=== PATIENT | female | born 1930 | race African-American/Black ===

== ENCOUNTER 2016-12-16 18:39 | Emergency (ER) | payer OTHER ==
[2016-12-16 18:54] VITALS: BP 192/88; PULSE 99; TEMP 98.3; BMI 25.6
--- NOTE | 2016-12-16 21:22 | PDOC ---
History of Present Illness - General History Source: Patient Exam Limitations: No Limitations - History of Present Illness Initial Comments: 12/16/16 21:49 The patient is a 86 year old female with significant past medical history of hypertension who presents to the ED with 1 day of exertional midsternal chest pain. Patient reports her chest pain radiates to her back and is 10/10, in severity. At time of evaluation, patient states her chest pain is now resolved. States that she normally has chest discomfort that is worsen with walking and alleviated upon rest. However, she became concern today after her pain started to radiated to her back, which is new to her. Denies lightheadedness, diaphoresis, SOB, jaw pain, shoulder pain, arm pain, leg swelling, nausea, or vomiting. The patient denies fever, chills, cough, abdominal pain, and diarrhea. Allergies: NKDA Social History: No alcohol, tobacco, or drug use reported. Past Surgical History: None reported PCP: Dr. Romy Newman <Janice Plummer - Last Filed: 12/16/16 22:15> - General History Source: Patient <WillieDrew fernandez - Last Filed: 12/16/16 23:47> - General Chief Complaint: Chest Pain Stated Complaint: CHEST PAIN Time Seen by Provider: 12/16/16 21:21 Past History <Janice Plummer - Last Filed: 12/16/16 22:15> - Past Medical History HTN: Yes Suicide Attempt (Hx): No - Psycho/Social/Smoking Cessation Hx Anxiety: No Suicidal Ideation: No Smoking Status: No Smoking History: Never smoked Have you smoked in the past 12 months: No Number of Cigarettes Smoked Daily: 0 Information on smoking cessation initiated: No Hx Alcohol Use: No Drug/Substance Use Hx: No Substance Use Type: None <Drew Maya - Last Filed: 12/16/16 23:47> - Past Medical History Allergies/Adverse Reactions: Allergies Allergy/AdvReac Type Severity Reaction Status Date / Time No Known Allergies Allergy Verified 12/16/16 18:54 Home Medications: Ambulatory Orders Olmesartan Medoxomil [Benicar -] 20 mg PO DAILY 12/25/13 Review of Systems - Review of Systems Able to Perform ROS?: Yes Comments:: 12/16/16 21:49 CONSTITUTIONAL: Absent: fever, no chills, no fatigue EYES: Absent: visual changes ENT: Absent: ear pain, no sore throat CARDIOVASCULAR: +midsternal chest pain radiating to the back Absent: no palpitations RESPIRATORY: Absent: cough, no SOB GI: Absent: abdominal pain, no nausea, no vomiting, no constipation, no diarrhea GENITOURINARY: Absent: dysuria, no frequency, no hematuria MUSCULOSKELETAL: Absent: no arthralgia, no myalgia SKIN: Absent: rash NEURO: Absent: headache <KavithaJanice - Last Filed: 12/16/16 22:15> *Physical Exam - Vital Signs Last Vital Signs Temp Pulse Resp BP Pulse Ox 98.3 F 99 H 19 192/88 98 12/16/16 18:51 12/16/16 18:51 12/16/16 18:51 12/16/16 18:51 12/16/16 18:51 - Physical Exam Comments: 12/16/16 21:50 GENERAL: Well-appearing, well-nourished. No apparent distress. HEENT: Normocephalic, atraumatic. PERRL, EOM intact. CARDIOVASCULAR: Regular rate and rhythm. No murmurs, rubs, or gallops. Distal pulses are 2+ and symmetric. PULMONARY: No evidence of respiratory distress. Lungs clear to auscultation bilaterally. No wheezing, rales or rhonchi. ABDOMEN: Soft, non-distended, non-tender. EXTREMITIES: Normal ROM in all four extremities. No gross deformities. SKIN: Warm, dry. No rash NEUROLOGICAL: Alert, awake, oriented. Moving all extremities. No gross focal neurological deficits. <KavithaJanice - Last Filed: 12/16/16 22:15> - Vital Signs Last Vital Signs Temp Pulse Resp BP Pulse Ox 98.3 F 99 H 19 192/88 98 12/16/16 18:51 12/16/16 18:51 12/16/16 18:51 12/16/16 18:51 12/16/16 18:51 <Drew Maya - Last Filed: 12/16/16 23:47> Heart Score/ECG Review - ECG Impressions Comment:: 12/16/16 22:15 NSR @89bpm LBBB Abnormal ECG <Janice Plummer - Last Filed: 12/16/16 22:15> ED Treatment Course - LABORATORY CBC & Chemistry Diagram: 12/16/16 22:30 12/16/16 22:30 <Drew Maya - Last Filed: 12/16/16 23:47> Medical Decision Making - Medical Decision Making 12/16/16 23:46 Dr. Maya: The scribe's documentation has been prepared under my direction and personally reviewed by me in its entirery. I confirm that the note above accurately reflects all work, treatment, procedures, and medical decision making performed by me. Pt feels better. CE negative. Will discharge <Drew Maya - Last Filed: 12/16/16 23:47> *DC/Admit/Observation/Transfer - Attestations Scribe Attestion: 12/16/16 21:50 Documentation prepared by Janice Plummer, acting as medical office worker for Drew Maya MD <Janice Plummer - Last Filed: 12/16/16 22:15> - Discharge Dispostion Admit: No <Drew Maya - Last Filed: 12/16/16 23:47> Diagnosis at time of Disposition: Chest pain Qualifiers: Chest pain type: unspecified Qualified Code(s): R07.9 - Chest pain, unspecified - Discharge Dispostion Disposition: HOME Condition at time of disposition: Improved - Referrals Referrals: Romy Newman MD [Staff Physician] - - Patient Instructions Printed Discharge Instructions: DI for Chest Pain
[2016-12-16 22:44] LABS: BASOPHIL 0.9 % (0-2.0); EOSINOPHIL 4.9 % (0-4.5); MCH 25.5 pg (25.7-33.7); MCHC 32.1 g/dl (32.0-36.0); MEAN CELL VOLUME 79.7 fl (80-96); MEAN PLT VOLUME 9.4 fl (7.5-11.1); NEUTROPHILS 44.9 % (42.8-82.8); PLATELET COUNT 183 K/MM3 (134-434); RDW 16.2 % (11.6-15.6); WHITE BLOOD COUNT 8.3 K/mm3 (4.0-10.0)
[2016-12-16 23:22] LABS: INR 0.87 (0.82-1.09); PROTHROMBIN TIME (PATIENT) 9.5 SEC (9.98-11.88)
[2016-12-16 23:24] LABS: CALCIUM 9.2 mg/dL (8.5-10.1); COCKROFT - GAULT 51.5355; CREATININE 0.8 mg/dL (0.55-1.02)
[2016-12-16 23:26] LABS: TROPONIN I 0.06 ng/ml (0.00-0.05)
--- NOTE | 2016-12-17 11:38 | EKG ---
Test Reason : Blood Pressure : / mmHG Vent. Rate : 089 BPM Atrial Rate : 089 BPM P-R Int : 142 ms QRS Dur : 134 ms QT Int : 414 ms P-R-T Axes : 049 022 270 degrees QTc Int : 503 ms NORMAL SINUS RHYTHM LEFT BUNDLE BRANCH BLOCK ABNORMAL ECG WHEN COMPARED WITH ECG OF 25-DEC-2013 23:04, LEFT BUNDLE BRANCH BLOCK IS NOW PRESENT Confirmed by YADIRA ZAVALA MD ([id number]) on 12/17/2016 11:38:01 AM Referred By: Confirmed By:YADIRA ZAVALA MD
--- NOTE | 2016-12-18 09:30 | EKG ---
Test Reason : Blood Pressure : / mmHG Vent. Rate : 102 BPM Atrial Rate : 102 BPM P-R Int : 132 ms QRS Dur : 134 ms QT Int : 386 ms P-R-T Axes : 050 034 236 degrees QTc Int : 503 ms POOR DATA QUALITY, INTERPRETATION MAY BE ADVERSELY AFFECTED SINUS TACHYCARDIA LEFT BUNDLE BRANCH BLOCK ABNORMAL ECG WHEN COMPARED WITH ECG OF 25-DEC-2013 23:04, LEFT BUNDLE BRANCH BLOCK IS NOW PRESENT Confirmed by LENARD LEGGETT, RADHA ([id number]) on 12/18/2016 9:30:24 AM Referred By: Confirmed By:RADHA WEINBERG MD
== END 2016-12-16 23:54 | disposition home or self-care (01) ==
LOC: JER 18:39
DX: R07.9 Chest pain, unspecified (principal); I10 Essential (primary) hypertension
CPT/HCPCS: 36415; 71010-TC; 80048; 82550; 84484; 85025; 85610; 93005; 93010; 99284-25

== ENCOUNTER 2017-07-18 08:08 | Inpatient (IN) | payer OTHER ==
[2017-07-18] MEDS ORDERED: ASPIRIN 81 MG CHEWABLE TABLETS PO ONE (08:31)
[2017-07-18] MEDS ORDERED: ASPIRIN 81 MG CHEWABLE TABLETS ONE (08:45)
[2017-07-18 08:53] LABS: URINE APPEARANCE CLEAR; URINE BILIRUBIN NEGATIVE (NEGATIVE); URINE BLOOD NEGATIVE (NEGATIVE); URINE COLOR YELLOW; URINE GLUCOSE (UA) NEGATIVE (NEGATIVE); URINE KETONE NEGATIVE (NEGATIVE); URINE NITRITE NEGATIVE (NEGATIVE); URINE PROTEIN NEGATIVE (NEGATIVE); URINE UROBILINOGEN NEGATIVE mg/dL (0.2-1.0)
[2017-07-18 08:58] LABS: BASOPHIL 0.7 % (0-2.0); MCH 24.7 pg (25.7-33.7); MCHC 31.3 g/dl (32.0-36.0); MEAN CELL VOLUME 78.9 fl (80-96); MEAN PLT VOLUME 9.4 fl (7.5-11.1); NEUTROPHILS 61.3 % (42.8-82.8); PLATELET COUNT 176 K/MM3 (134-434); RDW 16.6 % (11.6-15.6); WHITE BLOOD COUNT 6.7 K/mm3 (4.0-10.0)
--- NOTE | 2017-07-18 09:07 | PDOC ---
History of Present Illness - General Chief Complaint: Shortness of Breath Stated Complaint: SOB Time Seen by Provider: 07/18/17 08:20 History Source: Patient Exam Limitations: No Limitations - History of Present Illness Initial Comments: 07/18/17 09:00 Patient is an 87F with a history of HTN and possibly COPD here today complaining of shortness of breath and cough. She states that she's had problems with shortness of breath for "awhile now" but the symptoms have worsened in the past two days especially. In addition, she states that she has decreased exercise tolerance; she can now only walk about a half block before being short of breath. She says that she's never been told that she has heart failure or has had a blood clot. Denies recent travel and leg swelling. She says that she sleeps mostly flat and does not sleep well. She was seen in December in the ED for chest pain. She had a positive trop of 0.06 and an EKG showing an old LBBB. Patient was not admitted and has received no workup since then. She states that her last echo and stress tests were "years ago". Past History - Past Medical History Allergies/Adverse Reactions: Allergies Allergy/AdvReac Type Severity Reaction Status Date / Time No Known Allergies Allergy Verified 07/18/17 08:13 Home Medications: Ambulatory Orders Olmesartan Medoxomil [Benicar -] 20 mg PO DAILY 12/25/13 COPD: No HTN: Yes Other medical history: Osteoarthritis - Suicide/Smoking/Psychosocial Hx Smoking Status: No Smoking History: Never smoked Have you smoked in the past 12 months: No Number of Cigarettes Smoked Daily: 0 Information on smoking cessation initiated: No Hx Alcohol Use: No Drug/Substance Use Hx: No Substance Use Type: None Review of Systems - Review of Systems Comments:: 07/18/17 09:05 GENERAL/CONSTITUTIONAL: No fever or chills. Positive for diffuse weakness HEAD, EYES, EARS, NOSE AND THROAT: No change in vision. No ear pain or discharge. No sore throat. CARDIOVASCULAR: No chest pain. Positive for shortness of breath. RESPIRATORY: Positive for cough. Negative for wheezing, or hemoptysis. GASTROINTESTINAL: No nausea, vomiting, diarrhea or constipation. GENITOURINARY: No dysuria, frequency, or change in urination. MUSCULOSKELETAL: No joint or muscle swelling or pain. No neck or back pain. SKIN: No rash NEUROLOGIC: No headache, vertigo, loss of consciousness, or change in strength/ sensation. ENDOCRINE: No increased thirst. No abnormal weight change HEMATOLOGIC/LYMPHATIC: No anemia, easy bleeding, or history of blood clots. ALLERGIC/IMMUNOLOGIC: No hives or skin allergy. *Physical Exam - Vital Signs Last Vital Signs Temp Pulse Resp BP Pulse Ox 97.9 F 107 H 19 149/85 98 07/18/17 08:10 07/18/17 08:10 07/18/17 08:10 07/18/17 08:10 07/18/17 08:27 - Physical Exam Comments: 07/18/17 09:07 GENERAL: Awake, alert, and fully oriented, in no acute distress HEAD: No signs of trauma, normocephalic, atraumatic EYES: PERRLA, EOMI, sclera anicteric, conjunctiva clear ENT: Auricles normal inspection, hearing grossly normal, nares patent, oropharynx clear without exudates. Moist mucosa NECK: Normal ROM, supple, no lymphadenopathy, JVD, or masses LUNGS: No distress, speaks full sentences, clear to auscultation bilaterally HEART: Regular rate and rhythm, 3/6 mid-systolic click murmur. Peripheral pulses normal and equal bilaterally. ABDOMEN: Soft, nontender, normoactive bowel sounds. No guarding, no rebound. No masses EXTREMITIES: Normal inspection, Normal range of motion, no edema. No clubbing or cyanosis. NEUROLOGICAL: Cranial nerves II through XII grossly intact. Normal speech, no focal sensorimotor deficits SKIN: Warm, Dry, normal turgor, no rashes or lesions noted. Heart Score/ECG Review - History History: Moderately suspicious - Electrocardiogram EKG: Non specific repolarization disturbance - Age Age: >/= 65 - Risk Factors Risk Factors Heart Score: Yes Hx Hypercholesterolemia, Yes Hx Hypertension, Yes Smoking History Based on the list above the patient has:: >/=3 risk factors or Hx atherosclerotic disease - Troponin Troponin: </= normal limit - Score Heart Score - Total: 6 ED Treatment Course - LABORATORY CBC & Chemistry Diagram: 07/18/17 08:40 07/18/17 08:40 - RADIOLOGY Radiology Studies Ordered: Category Date Time Status CHEST PA & LAT [RAD] Stat Radiology 07/18/17 08:31 Taken - Medications Given in the ED: ED Medications Discontinued Medications Generic Name Dose Route Start Last Admin Trade Name Shannan PRN Reason Stop Dose Admin Aspirin 162 mg 07/18/17 08:31 07/18/17 08:44 Asa - PO 07/18/17 08:32 162 mg ONCE ONE Administration Medical Decision Making - Medical Decision Making 07/18/17 09:09 87F with history of HTN and possibly COPD here today complaining of shortness of breath. Tachy to 107, vital signs otherwise stable and normal. Differential diagnosis includes, but is not limited to: ACS, CHF, COPD exacerbation. Concerned due to patient's prior positive trop and no work-up since. Will evaluate with cbc, cmp, mg, trop, ua, cxr and ekg. EKG shows LBBB with LVH and repolarization abnormality. Sinus tach to 105. Sgarbossa negative. Inverted t waves in II, III, aVF, V5 and V6. Concerning EKG. 07/18/17 10:01 Laboratory Tests 07/18/17 07/18/17 07/18/17 08:40 08:40 08:40 WBC 6.7 Hgb 10.6 L Hct 34.0 Plt Count 176 INR 0.94 BUN 10 D Creatinine 0.8 Troponin I < 0.02 CBC normal, coags normal, INR normal, trop neg, CMP reassuring. BNP pending. 07/18/17 10:21 CXR shows signs of fluid overload. BNP elevated to >3k. Will admit. 07/18/17 10:[address] Antoine, admitted to inpatient tele. *DC/Admit/Observation/Transfer Diagnosis at time of Disposition: CHF (congestive heart failure) - Discharge Dispostion Condition at time of disposition: Stable Admit: Yes - Referrals - Patient Instructions - Post Discharge Activity
[2017-07-18 09:22] LABS: ALBUMIN 3.4 g/dl (3.4-5.0); ANION GAP 12 (8-16); BILIRUBIN,TOTAL 0.9 mg/dL (0.2-1.0); CALCIUM 8.8 mg/dL (8.5-10.1); CO2 22 mmol/L (21-32); CREATININE 0.8 mg/dL (0.55-1.02); GLUCOSE,RANDOM 104 mg/dL (74-106); SGPT/ALT 20 U/L (12-78); TOT PROT 6.8 g/dl (6.4-8.2)
[2017-07-18 09:24] LABS: ALK PHOS 73 U/L (45-117); TROPONIN I < 0.02 ng/ml (0.00-0.05)
[2017-07-18 09:32] LABS: CPK 173 IU/L (26-192); INR 0.94 (0.82-1.09); MAGNESIUM 2.1 mg/dL (1.8-2.4); PROTHROMBIN TIME (PATIENT) 10.6 SEC (9.98-11.88); SGOT/AST 32 U/L (15-37)
--- NOTE | 2017-07-18 09:39 | PDOC ---
Attending Attestation - Resident Resident Name: TalhafloMo - ED Attending Attestation I have performed the following: I have examined & evaluated the patient, The case was reviewed & discussed with the resident, I agree w/resident's findings & plan, Exceptions are as noted - HPI HPI: 07/18/17 08:34 87yo F hx COPD, HTn, thyroid surgery p/w SOB a/w prod cough for 2 days. Also reports decreased ET to 1/2 block. Denies hx heart failure. No LE edema. No CP. Has 2 pillow orthopnea. Denies PND. No recent surgery or immobilization. Has not had a cardiac work up recently. - Physicial Exam PE: 07/18/17 09:47 GENERAL: Awake, alert, and fully oriented, in no acute distress HEAD: No signs of trauma EYES: PERRLA, EOMI, sclera anicteric, conjunctiva clear ENT: Auricles normal inspection, hearing grossly normal, nares patent, oropharynx clear without exudates. Moist mucosa NECK: Normal ROM, supple, no lymphadenopathy, JVD, or masses LUNGS: Breath sounds equal, clear to auscultation bilaterally. No wheezes, and no crackles HEART: Regular rate and rhythm, normal S1 and S2, no murmurs, rubs or gallops ABDOMEN: Soft, nontender, normoactive bowel sounds. No guarding, no rebound. No masses EXTREMITIES: Normal range of motion, no edema. No clubbing or cyanosis. No cords, erythema, or tenderness NEUROLOGICAL: Normal speech, cranial nerves intact, negative pronator drift, 5/ 5 strength in all 4 extremities, normal sensation to light touch in all 4 extremities, normal cerebellar exam, normal gait, normal reflexes and tone SKIN: Warm, Dry, normal turgor, no rashes or lesions noted. - Medical Decision Making 07/18/17 10:03 87-year-old female with multiple medical problems presents with shortness of breath. His exercise tolerance. Vitals remarkable for tachycardia to 107 and hypoxia to 91%. Differential includes ACS versus heart failure versus COPD exacerbation. -labs -cxr -admit
--- NOTE | 2017-07-18 11:29 | HP ---
Admitting History and Physical - Primary Care Physician PCP: Romy Newman - Admission Chief Complaint: worsening sob, almeida History of Present Illness: This is an 87 year old female with history of HTN, COPD (not on meds anymore) who presented to the ED with worsening SOB and dyspnea on exertion. Ms. Willis states she has noticed since May she has been feeling more short of breath. Her usual exercise tolerance is high, able to walk from the bus stop from her home without issue. Yesterday, however she was sweeping and after two sweeps, was acute short of breath, coughing and had white phlegm come up. She stated mild chest pain with even, sat down and recovered. She notes her friends telling her on the phone she doesn't sound well. She does not use oxygen at home , she was given albuterol by her PCP thinking it was her COPD. Currently, denies chest pain, abdominal pain, nausea, vomiting, lower ext swelling. She notes her appetites in the last week has been less. She does not remember who she saw for cardiology several years ago. History Source: Patient Limitations to Obtaining History: No Limitations - Past Medical History Cardiovascular: Yes: HTN Pulmonary: Yes: COPD - Past Surgical History Additional Past Surgical History: Polyp removals C section Partial thyroidectomy ? - Smoking History Smoking history: Never smoked Have you smoked in the past 12 months: No Aproximately how many cigarettes per day: 0 - Alcohol/Substance Use Hx Alcohol Use: No History of Substance Use: reports: None - Social History Usual Living Arrangement: Yes: With Child ADL: Independent Occupation: retired [employer] History of Recent Travel: No Home Medications - Allergies Allergies/Adverse Reactions: Allergies Allergy/AdvReac Type Severity Reaction Status Date / Time No Known Allergies Allergy Verified 07/18/17 08:13 - Home Medications Home Medications: Ambulatory Orders Olmesartan Medoxomil [Benicar -] 20 mg PO DAILY 12/25/13 Albuterol Sulfate Inhaler - [Ventolin Hfa Inhaler -] 2 inh PO Q6H 07/18/17 Metoprolol Succinate [Toprol Xl] 50 mg PO DAILY 07/18/17 Review of Systems - Review of Systems Constitutional: reports: Loss of Appetite Eyes: reports: No Symptoms HENT: reports: No Symptoms Neck: reports: No Symptoms Cardiovascular: reports: Shortness of Breath Respiratory: reports: Cough, Exercise Intolerance, SOB, SOB on Exertion Gastrointestinal: reports: No Symptoms Genitourinary: reports: No Symptoms Musculoskeletal: reports: No Symptoms Integumentary: reports: No Symptoms Neurological: reports: No Symptoms Endocrine: reports: No Symptoms Hematology/Lymphatic: reports: No Symptoms Psychiatric: reports: No Symptoms Physical Examination Vital Signs: Vital Signs Temperature 98.1 F 07/18/17 11:16 Pulse Rate 79 07/18/17 11:16 Respiratory Rate 19 07/18/17 11:16 Blood Pressure 130/75 07/18/17 11:16 O2 Sat by Pulse Oximetry (%) 98 07/18/17 11:16 Constitutional: Yes: Well Nourished Eyes: Yes: Conjunctiva Clear Neck: Yes: Supple, Trachea Midline Cardiovascular: Yes: Regular Rate and Rhythm, Tachycardia Respiratory: Yes: On Nasal O2, SOB on Exertion, Other (crackles bilateral bases) Gastrointestinal: Yes: Normal Bowel Sounds, Soft Renal/: Yes: WNL Extremities: Yes: WNL Edema: No Integumentary: Yes: WNL Neurological: Yes: Alert, Oriented, Cran Nerves II-XII Intact ...Motor Strength: WNL Psychiatric: Yes: Alert, Oriented Labs: CBC, BMP 07/18/17 08:40 07/18/17 08:40 Imaging - Results Chest X-ray: Report Reviewed, Image Reviewed (moderate pulmonary vascular congestion) Problem List - Problems (1) CHF (congestive heart failure) Code(s): I50.9 - HEART FAILURE, UNSPECIFIED (2) Dyspnea due to congestive heart failure Code(s): I50.9 - HEART FAILURE, UNSPECIFIED (3) Dyspnea on exertion Code(s): R06.09 - OTHER FORMS OF DYSPNEA (4) Shortness of breath on exertion Code(s): R06.02 - SHORTNESS OF BREATH Assessment/Plan Assessment: 87 year old female with htn, copd admitted with worsening shortness of breath and dyspnea on exertion Plan: 1. Worsening SOB/dyspnea on exertion - Possibly new onset CHF - CXR w congestion, elevated BNP - Start lasix 40mg iv daily, first dose now - ECHO in AM - Persantine stress in AM - Cardiac enzymes - Continue toprol XL 50mg - Cardiology consult requested 2. HTN - Currently controlled - Cont Benicar 3. COPD - Not in exacerbation, no wheezing noted - Maintain spo2 >92% - Duonebs prn 4. DVT - Heparin sq Visit type - Emergency Visit Emergency Visit: Yes ED Registration Date: 07/18/17 Care time: The patient presented to the Emergency Department on the above date and was hospitalized for further evaluation of their emergent condition. - New Patient This patient is new to me today: Yes Date on this admission: 07/18/17 - Critical Care Critical Care patient: No
[2017-07-18] MEDS ORDERED: FUROSEMIDE 40 MG/4 ML INJECTABLE VIAL IVPUSH ONE (12:11)
[2017-07-18] MEDS ORDERED: ALBUTEROL SO4 2.5/IPRATROPIUM 0.5 INH SOL 3 ML VIAL.NEB. NEB PRN (12:13)
[2017-07-18 12:51] LABS: URINE LEUK ESTERASE Negative (NEGATIVE)
[2017-07-18] MEDS ORDERED: FUROSEMIDE 40 MG/4 ML INJECTABLE VIAL ONE (12:59)
--- NOTE | 2017-07-18 13:30 | CON.CARD ---
Cardiology Consult (text) - Consultation Consultation Note: cc: sob hpi: 87 f hx htn, copd, here with sob. For past few months pt has noticed gradually worsening almeida. No cp, palps, dizzy, loc, pnd, le edema. +orthopnea 2 pillows. No known hx hrt dz. No recent cardiac testing. pmh: per hpi psh: thyroid surgery social: ex tob fam: no premature cad, scd ros: per hpi; no nvd, fever, cough, marmolejo,vision changes, gib, hematuria, muscle pains meds: Home Medications Medication Instructions Recorded Olmesartan Medoxomil [Benicar -] 20 mg PO DAILY 12/25/13 Albuterol Sulfate Inhaler - 2 inh PO Q6H 07/18/17 [Ventolin Hfa Inhaler -] Metoprolol Succinate [Toprol Xl] 50 mg PO DAILY 07/18/17 pe: Vital Signs Period Temp Pulse Resp BP Sys/Ortiz Pulse Ox Last 24 Hr 97.9 F-98.3 F 79-107 19-20 130-149/75-85 91-98 nad +jvd rrr s1s2 no mrg bl crackles at bases nl eff aao3 no le e/c/c abd nt nd pos bs no jaundice diaphoresis pos dp pt no carotid bruits Laboratory Last Values WBC 6.7 K/mm3 (4.0-10.0) 07/18/17 08:40 RBC 4.31 M/mm3 (3.60-5.2) 07/18/17 08:40 Hgb 10.6 GM/dL (10.7-15.3) L 07/18/17 08:40 Hct 34.0 % (32.4-45.2) 07/18/17 08:40 MCV 78.9 fl (80-96) L 07/18/17 08:40 MCH 24.7 pg (25.7-33.7) L 07/18/17 08:40 MCHC 31.3 g/dl (32.0-36.0) L 07/18/17 08:40 RDW 16.6 % (11.6-15.6) H 07/18/17 08:40 Plt Count 176 K/MM3 (134-434) 07/18/17 08:40 MPV 9.4 fl (7.5-11.1) 07/18/17 08:40 Neutrophils % 61.3 % (42.8-82.8) D 07/18/17 08:40 Lymphocytes % 27.2 % (8-40) D 07/18/17 08:40 Monocytes % 6.8 % (3.8-10.2) 07/18/17 08:40 Eosinophils % 4.0 % (0-4.5) 07/18/17 08:40 Basophils % 0.7 % (0-2.0) 07/18/17 08:40 PT with INR 10.60 SEC (9.98-11.88) 07/18/17 08:40 INR 0.94 (0.82-1.09) 07/18/17 08:40 Sodium 144 mmol/L (136-145) 07/18/17 08:40 Potassium 4.3 mmol/L (3.5-5.1) 07/18/17 08:40 Chloride 110 mmol/L (98-107) H 07/18/17 08:40 Carbon Dioxide 22 mmol/L (21-32) 07/18/17 08:40 Anion Gap 12 (8-16) 07/18/17 08:40 BUN 10 mg/dL (7-18) D 07/18/17 08:40 Creatinine 0.8 mg/dL (0.55-1.02) 07/18/17 08:40 Creat Clearance w eGFR > 60 (>60) 07/18/17 08:40 Random Glucose 104 mg/dL (74-106) 07/18/17 08:40 Calcium 8.8 mg/dL (8.5-10.1) 07/18/17 08:40 Magnesium 2.1 mg/dL (1.8-2.4) 07/18/17 08:40 Total Bilirubin 0.9 mg/dL (0.2-1.0) D 07/18/17 08:40 AST 32 U/L (15-37) D 07/18/17 08:40 ALT 20 U/L (12-78) 07/18/17 08:40 Alkaline Phosphatase 73 U/L (45-117) 07/18/17 08:40 Creatine Kinase 173 IU/L (26-192) 07/18/17 08:40 Creatine Kinase Index 0.8 % (0.0-5.0) 07/18/17 08:40 CK-MB (CK-2) 1.436 ng/mL (0.5-3.6) 07/18/17 08:40 Troponin I < 0.02 ng/ml (0.00-0.05) 07/18/17 08:40 B-Natriuretic Peptide 3496.53 pg/ml (5-450) H 07/18/17 09:46 Total Protein 6.8 g/dl (6.4-8.2) 07/18/17 08:40 Albumin 3.4 g/dl (3.4-5.0) 07/18/17 08:40 Urine Color Yellow 07/18/17 08:32 Urine Appearance Clear 07/18/17 08:32 Urine pH 5.0 (5.0-8.0) 07/18/17 08:32 Ur Specific Freeborn 1.014 (1.001-1.035) 07/18/17 08:32 Urine Protein Negative (NEGATIVE) 07/18/17 08:32 Urine Glucose (UA) Negative (NEGATIVE) 07/18/17 08:32 Urine Ketones Negative (NEGATIVE) 07/18/17 08:32 Urine Blood Negative (NEGATIVE) 07/18/17 08:32 Urine Nitrite Negative (NEGATIVE) 07/18/17 08:32 Urine Bilirubin Negative (NEGATIVE) 07/18/17 08:32 Urine Urobilinogen Negative mg/dL (0.2-1.0) 07/18/17 08:32 Ur Leukocyte Esterase Negative (NEGATIVE) 07/18/17 08:32 ecg: sr, old lbbb cxr: +chf a/p: 87 f hx htn, copd, here with sob. htn: -cont home meds sob, acute chf: -pt several months of worsening almeida and here with lung congestion -will start with lasix 40 iv qd and monitor daily wt, chem7 -check echo -no signs acs abnl ecg -pt with old lbbb -no signs acs, cont to trend ce's -check echo -will consider ischemic testing once chf has improved
[2017-07-18 14:05] LABS: TROPONIN I 0.02 ng/ml (0.00-0.05)
[2017-07-18 14:55] VITALS: BMI 23.8
--- NOTE | 2017-07-18 15:04 | EKG ---
Test Reason : Blood Pressure : / mmHG Vent. Rate : 105 BPM Atrial Rate : 105 BPM P-R Int : 124 ms QRS Dur : 138 ms QT Int : 378 ms P-R-T Axes : 054 037 260 degrees QTc Int : 499 ms SINUS TACHYCARDIA CLBBB ABNORMAL ECG WHEN COMPARED WITH ECG OF 16-DEC-2016 22:05, INCREASE IN HEART RATE REPEAT EKG IF CLINICALLY INDICATED Confirmed by AILIN NASCIMENTO MD ([id number] on 07/18/2017 3:04:21 PM Referred By: Confirmed By:AILIN NASCIMENTO MD
[2017-07-18] MEDS ORDERED: METOPROLOL TARTRATE 50 MG TABLET (FP) PO ONE (20:41)
[2017-07-18] MEDS ORDERED: METOPROLOL TARTRATE 50 MG TABLET (FP) ONE (20:45)
[2017-07-18] MEDS ORDERED: HEPARIN NA (PORCINE) 5,000 UNITS/ML 1ML VIAL ONE (21:55)
[2017-07-18] MEDS: HEPARIN NA (PORCINE) 5,000 UNITS/ML 1ML VIAL SQ SCH (22:16)
[2017-07-19 07:31] LABS: TROPONIN I 0.03 ng/ml (0.00-0.05)
[2017-07-19 07:41] LABS: ALBUMIN 3.5 g/dl (3.4-5.0); ANION GAP 9 (8-16); CALCIUM 8.9 mg/dL (8.5-10.1); CO2 26 mmol/L (21-32); CREATININE 0.9 mg/dL (0.55-1.02); GLUCOSE,RANDOM 102 mg/dL (74-106); MAGNESIUM 2.3 mg/dL (1.8-2.4); PHOSPHOROUS 3.1 mg/dL (2.5-4.9); SGOT/AST 18 U/L (15-37); SGPT/ALT 18 U/L (12-78)
[2017-07-19 07:43] LABS: ALK PHOS 75 U/L (45-117); BILIRUBIN,TOTAL 1.1 mg/dL (0.2-1.0); TOT PROT 6.7 g/dl (6.4-8.2)
[2017-07-19 08:23] LABS: BASOPHIL 0.8 % (0-2.0); MCH 24.9 pg (25.7-33.7); MCHC 32.1 g/dl (32.0-36.0); MEAN CELL VOLUME 77.6 fl (80-96); MEAN PLT VOLUME 9.9 fl (7.5-11.1); NEUTROPHILS 54.7 % (42.8-82.8); PLATELET COUNT 191 K/MM3 (134-434); RDW 16.4 % (11.6-15.6); WHITE BLOOD COUNT 7.7 K/mm3 (4.0-10.0)
--- NOTE | 2017-07-19 09:40 | PN ---
Progress Note, Physician Chief Complaint: sob History of Present Illness: no sob but at rest today. only occurs with activity (low level) or speaking on phone at home. only notes chest discomfort with long walking at home--none here no leg swelling urinated profusely after iv lasix yest no palpit, dizzy - Current Medication List Current Medications: Active Medications Albuterol/Ipratropium (Duoneb -) 1 amp NEB Q4H PRN PRN Reason: SHORTNESS OF BREATH Furosemide (Lasix Injection -) 40 mg IVPUSH DAILY [facility] Heparin Sodium (Porcine) (Heparin -) 5,000 unit SQ BID [facility] Last Admin: 07/18/17 22:16 Dose: 5,000 unit Metoprolol Succinate (Toprol Xl -) 50 mg PO DAILY [facility] Regadenoson (Lexiscan) 0.4 mg IVPUSH ONCE ONE Stop: 07/19/17 10:01 Valsartan (Diovan -) 160 mg PO DAILY [facility] - Objective Vital Signs: Vital Signs Temperature 98.4 F 07/19/17 07:55 Pulse Rate 91 H 07/19/17 07:55 Respiratory Rate 18 07/19/17 07:55 Blood Pressure 126/78 07/19/17 07:55 O2 Sat by Pulse Oximetry (%) 98 07/19/17 07:55 Constitutional: Yes: Well Nourished, No Distress, Calm Cardiovascular: Yes: Regular Rate and Rhythm, S1, S2. No: JVD (in wheelchair ( in cardiology area)), Gallop, Murmur Respiratory: Yes: Regular, CTA Bilaterally. No: Accessory Muscle Use, Rales, Wheezes Extremities: No: Cold Edema: No Neurological: Yes: Alert, Oriented Psychiatric: No: Agitated Labs: CBC, BMP 07/19/17 06:10 07/19/17 06:00 INR, PTT INR 0.94 (0.82-1.09) 07/18/17 08:40 Assessment/Plan ecg: sr, old lbbb cxr 07/18: chf chagnes 07/19: progressive chf findings a/p: 87 f hx htn, copd, here with sob. sob with activity, rarely cp with activity (if more strenuous)/acute chf ( unknown type): -suspect acute CHF -bnp 3400 -she rports brisk diuresis with lasix 40 iv yest -check echo and mpi today -no signs acs here--no angina sx's. no need tele monitoring -given unchanged (and probably slightly worsened) cxr today, rec continue iv lasix as inpatient for another 24-48 hrs, monitor wts and ambulate pt to ensure sx's are improving prior to hosp discharge htn: -well controlled -cont current meds abnl ecg -pt with old lbbb -no signs acs, cont to trend ce's -check echo -will consider ischemic testing once chf has improved
[2017-07-19] MEDS ORDERED: REGADENOSON 0.4 MG/5 ML PRE-FILLED SYRINGE IVPUSH ONE ×2 (09:43→10:00)
[2017-07-19] MEDS: METOPROLOL SUCCINATE 50 MG TAB.SR.24H (FP) PO SCH (14:11)
[2017-07-19] MEDS: HEPARIN NA (PORCINE) 5,000 UNITS/ML 1ML VIAL SQ SCH ×2 (14:11→21:32)
[2017-07-19] MEDS: FUROSEMIDE 40 MG/4 ML INJECTABLE VIAL IVPUSH SCH (14:11)
[2017-07-19] MEDS: VALSARTAN 160 MG TABLET (UD) PO SCH (14:11)
--- NOTE | 2017-07-19 14:21 | PN ---
Physical Exam: SUBJECTIVE: Patient seen and examined. She says she is feeling better, however she wont know for sure until she begins to walk around or talk on the phone, this is when she feels the most sob OBJECTIVE: Vital Signs Period Temp Pulse Resp BP Sys/Ortiz Pulse Ox Last 24 Hr 97.9 F-98.4 F 75-118 18-23 123-148/69-88 95-98 PE Neuro: alert, awake, cn 2-12intact Pulm: basilar crackles R>L, CV: s1 s2 rrr no mrg Abd: s nt nd + bs Ext: no le edema, warm Laboratory Results - last 24 hr 07/19/17 07/19/17 07/19/17 06:00 06:10 06:10 WBC 7.7 RBC 4.36 Hgb 10.9 Hct 33.8 MCV 77.6 L MCH 24.9 L MCHC 32.1 RDW 16.4 H Plt Count 191 MPV 9.9 Neutrophils % 54.7 Lymphocytes % 31.6 Monocytes % 7.9 Eosinophils % 5.0 H Basophils % 0.8 Sodium 145 Potassium 4.1 Chloride 110 H Carbon Dioxide 26 Anion Gap 9 BUN 12 Creatinine 0.9 Creat Clearance w eGFR 59.37 Random Glucose 102 Calcium 8.9 Phosphorus 3.1 Magnesium 2.3 Total Bilirubin 1.1 H D AST 18 D ALT 18 Alkaline Phosphatase 75 Creatine Kinase 213 H Creatine Kinase Index 1.0 CK-MB (CK-2) 2.300 Troponin I 0.03 Total Protein 6.7 Albumin 3.5 Active Medications Generic Name Dose Route Start Last Admin Trade Name Freq PRN Reason Stop Dose Admin Albuterol/Ipratropium 1 amp 07/18/17 12:13 Duoneb - NEB Q4H PRN SHORTNESS OF BREATH Furosemide 40 mg 07/19/17 10:00 07/19/17 14:11 Lasix Injection - IVPUSH 40 mg DAILY [facility]UC Administration Heparin Sodium (Porcine) 5,000 unit 07/18/17 22:00 07/19/17 14:11 Heparin - SQ 5,000 unit BID DUC Administration Metoprolol Succinate 50 mg 07/19/17 10:00 07/19/17 14:11 Toprol Xl - PO 50 mg DAILY [facility] Administration Valsartan 160 mg 07/19/17 10:00 11/13/17 14:11 Diovan - PO 160 mg DAILY [facility] Administration Assessment: 87 year old female with htn, copd admitted with worsening shortness of breath and dyspnea on exertion Plan: 1. Worsening SOB/dyspnea on exertion - Likely acute CHF, type to be determined - CXR with worsening congestive changes - Continue IV lasix 40mg daily - ECHO/stress done reports pending - Continue toprol XL 50mg - Will need PT and o2 sat eval w/ ambulation prior to discharge - D/w cardiology 2. HTN - Currently controlled - Cont Benicar 3. COPD - Not in exacerbation, no wheezing noted - Maintain spo2 >92% - Duonebs prn 4. DVT - Heparin sq Dispo: - Requires continuing IV diuresis Problem List - Problems (1) CHF (congestive heart failure) Code(s): I50.9 - HEART FAILURE, UNSPECIFIED (2) Dyspnea due to congestive heart failure Code(s): I50.9 - HEART FAILURE, UNSPECIFIED (3) Dyspnea on exertion Code(s): R06.09 - OTHER FORMS OF DYSPNEA (4) Shortness of breath on exertion Code(s): R06.02 - SHORTNESS OF BREATH Visit type - Emergency Visit Emergency Visit: Yes ED Registration Date: 07/19/17 Care time: The patient presented to the Emergency Department on the above date and was hospitalized for further evaluation of their emergent condition. - New Patient This patient is new to me today: No - Critical Care Critical Care patient: No
[2017-07-20 08:11] LABS: ANION GAP 13 (8-16); CALCIUM 8.9 mg/dL (8.5-10.1); CO2 22 mmol/L (21-32); CREATININE 1.2 mg/dL (0.55-1.02); GLUCOSE,RANDOM 105 mg/dL (74-106)
[2017-07-20 08:36] LABS: BASOPHIL 1.1 % (0-2.0); EOSINOPHIL 6.5 % (0-4.5); MCH 24.6 pg (25.7-33.7); MCHC 31.4 g/dl (32.0-36.0); MEAN CELL VOLUME 78.4 fl (80-96); NEUTROPHILS 49.6 % (42.8-82.8); PLATELET COUNT 218 K/MM3 (134-434); RDW 16.6 % (11.6-15.6); WHITE BLOOD COUNT 8.2 K/mm3 (4.0-10.0)
[2017-07-20] MEDS: HEPARIN NA (PORCINE) 5,000 UNITS/ML 1ML VIAL SQ SCH ×2 (09:54→21:57)
[2017-07-20] MEDS: FUROSEMIDE 40 MG/4 ML INJECTABLE VIAL IVPUSH SCH (09:54)
[2017-07-20] MEDS: METOPROLOL SUCCINATE 50 MG TAB.SR.24H (FP) PO SCH (09:54)
[2017-07-20] MEDS: VALSARTAN 160 MG TABLET (UD) PO SCH (10:00)
--- NOTE | 2017-07-20 12:55 | PN ---
Progress Note (short form) - Note Progress Note: Chief Complaint: sob History of Present Illness: no palpit, dizzy, cp, sob. however doesn't know if she is at baseline b/c has not ambulated very much. bp's trending down after lasix yesterday. valsartan held this morning. Current Medications Albuterol/Ipratropium (Duoneb -) 1 amp NEB Q4H PRN PRN Reason: SHORTNESS OF BREATH Furosemide (Lasix Injection -) 40 mg IVPUSH DAILY [facility] Last Admin: 07/20/17 09:54 Dose: 40 mg Heparin Sodium (Porcine) (Heparin -) 5,000 unit SQ BID [facility] Last Admin: 07/20/17 09:54 Dose: 5,000 unit Metoprolol Succinate (Toprol Xl -) 50 mg PO DAILY [facility] Last Admin: 07/20/17 09:54 Dose: 50 mg Valsartan (Diovan -) 160 mg PO DAILY [facility] Last Admin: 07/20/17 10:00 Dose: Not Given Vital Signs - 24 hr 07/19/17 07/19/17 07/19/17 13:48 18:00 20:43 Temperature 98 F 98.7 F Pulse Rate 114 H 99 H Respiratory 22 22 20 Rate Blood Pressure 148/78 102/52 O2 Sat by Pulse 94 L Oximetry (%) 07/19/17 07/20/17 07/20/17 20:49 02:00 04:00 Temperature 97.4 F L 98.2 F Pulse Rate 106 H 89 Respiratory 20 18 18 Rate Blood Pressure 116/63 115/62 O2 Sat by Pulse 94 L Oximetry (%) 07/20/17 07/20/17 07/20/17 05:55 08:39 08:43 Temperature 98.4 F 98.4 F Pulse Rate 90 86 Respiratory 20 20 18 Rate Blood Pressure 122/72 98/56 O2 Sat by Pulse 96 Oximetry (%) 07/20/17 10:26 Temperature Pulse Rate 81 Respiratory Rate Blood Pressure O2 Sat by Pulse 97 Oximetry (%) Intake & Output 07/18/17 07/19/17 07/20/17 07/21/17 07:59 07:59 07:59 07:59 Intake Total 315 Balance 315 Weight 130 lb 134 lb 3.2 oz Constitutional: Yes: Well Nourished, No Distress, Calm Cardiovascular: Yes: Regular Rate and Rhythm, S1, S2. No: JVD (in wheelchair ( in cardiology area)), Gallop, Murmur Respiratory: Yes: Regular, bibasilar rales. No: Accessory Muscle Use, Rales, Wheezes Extremities: No: Cold Edema: No Neurological: Yes: Alert, Oriented Psychiatric: No: Agitated Labs: CBC, BMP 07/20/17 06:45 07/20/17 05:10 Laboratory Tests 07/18/17 07/18/17 07/19/17 08:40 13:30 06:00 Creatinine 0.9 Troponin I < 0.02 0.02 07/19/17 06:10 Creatinine Troponin I 0.03 Assessment/Plan ecg: sr, old lbbb tele: sr, freq pvc's echo 07/2017: bline lve. lv sys fn severly reduced. severe global HK. nl rv. mild mvp. mod-sev mr. 1+ tr. stress test 07/2017: smalll-mod sized ant/anteroseptal ischemica (mild intensity ), small-mod sized base-apex inf ischemia (mild intensity). EF 23% at rest EF 24 % post stress. cxr 07/18: chf chagnes 07/19: progressive chf findings a/p: 87 f hx htn, copd, here with sob. sob with activity, rarely cp with activity (if more strenuous)/acute systolic HF exacerbation. -suspect acute CHF -she rported brisk diuresis with lasix 40 iv. - echo and mpi today as mentioned above -no signs acs here--no angina sx's. -07/20 Cr bump today on IV lasix. Will transition to PO . monitor wts and ambulate pt to ensure sx's are improving prior to hosp discharge. testing shows severe systolic dysfunction with + ischemia on stress testing. D/w interventionalist and patient --> transfer 07/21 to [facility] [place] for cath on 07/22. will start asa, statin htn: -trending down. monitor. adjusting diuresis as above abnl ecg -pt with old lbbb -no signs acs, cont to trend ce's -echo with severely reduced function. stress test with mild ischemia, plan as mentioned above
--- NOTE | 2017-07-20 15:33 | PN ---
Physical Exam: SUBJECTIVE: Patient seen and examined at the bedside. States she has dyspnea with ambulation, otherwise comfortable at rest. OBJECTIVE: Will need pre and post respiratory status before d/c Vital Signs Period Temp Pulse Resp BP Sys/Ortiz Pulse Ox Last 24 Hr 97.4 F-98.7 F 81-106 18-22 98-122/52-72 94-97 GENERAL: The patient is awake, alert, and fully oriented, in no acute distress. HEAD: Normal with no signs of trauma. EYES: PERRL, extraocular movements intact, sclera anicteric, conjunctiva clear. No ptosis. ENT: Ears normal, nares patent, oropharynx clear without exudates, moist mucous membranes. NECK: Trachea midline, full range of motion, supple. LUNGS: Breath sounds diminished bilaterally, no wheezing, no accessory muscle use HEART: Regular rate and rhythm, S1, S2 without murmur, rub or gallop. ABDOMEN: Soft, nontender, nondistended, normoactive bowel sounds, no guarding EXTREMITIES: no edema. NEUROLOGICAL: Normal speech, gait not observed. PSYCH: Normal mood, normal affect. SKIN: Warm, dry, normal turgor, no rashes or lesions noted Laboratory Results - last 24 hr 07/20/17 07/20/17 05:10 06:45 WBC 8.2 RBC 4.78 Hgb 11.8 Hct 37.5 MCV 78.4 L MCH 24.6 L MCHC 31.4 L RDW 16.6 H Plt Count 218 MPV 10.0 Neutrophils % 49.6 Lymphocytes % 36.0 Monocytes % 6.8 Eosinophils % 6.5 H Basophils % 1.1 Sodium 144 Potassium 4.0 Chloride 109 H Carbon Dioxide 22 Anion Gap 13 BUN 18 D Creatinine 1.2 H D Random Glucose 105 Calcium 8.9 Active Medications Generic Name Dose Route Start Last Admin Trade Name Freq PRN Reason Stop Dose Admin Albuterol/Ipratropium 1 amp 07/18/17 12:13 Duoneb - NEB Q4H PRN SHORTNESS OF BREATH Furosemide 40 mg 07/19/17 10:00 07/20/17 09:54 Lasix Injection - IVPUSH 40 mg DAILY [facility] Administration Heparin Sodium (Porcine) 5,000 unit 07/18/17 22:00 07/20/17 09:54 Heparin - SQ 5,000 unit BID [facility] Administration Metoprolol Succinate 50 mg 07/19/17 10:00 07/20/17 09:54 Toprol Xl - PO 50 mg DAILY [facility] Administration Valsartan 160 mg 07/19/17 10:00 07/20/17 10:00 Diovan - PO Not Given DAILY [facility] ASSESSMENT/PLAN: Patient is an 87 year old female with a significant past medical history of hypertension and COPD. She was admitted on 07/19/2017 for acute CHF exacerbation. Patient reports worsening shortness of breath with ambulation that required frequent rest periods. She does not have home oxygen, she is usually independent with all her ADLs. Imaging: Echocardiogram 07/19/2017: EF 26.9%, LV boderline dilated, LV systolic function severely reduced, severe global hypokinesis of the left ventricle, mild mitral valve thickening, mild mitral valve prolapse, prolapse of the posterior mitral leaflets, moderate to severe mitral regurgitation, mild tricuspid regurgitation , no pericardial effusion. NM/G/Justus/JANICE 07/19/2017: small to moderate anterior and anteroseptal reversible defect suggest mild intensity ischemia, small to moderate inferior reversible defect from base to apex compatible with mild intensity ischemia, severely reduced left ventricular systolic function with rest LVEF of 23% and post LVEF of 24%. Chest xray 07/18/2017: moderate pulmonary vascular congestion and small pleural effusions with bibasilar opacities, likely atelectasis, likely moderate CHF exacerbation. Enlargement of the cardiac silhouette appears to be slightly more prominent than . EKG 07/18/2017: sinus tachycardia, LBBB @ 105, when compared to ekg of 12/16/2016 , increase in heart rate Cardiology: Shortness of breath secondary to CHF exacerbation, acute Acute systolic CHF exacerbation Troponins negative x 3 BNP elevated Chest xray with moderate pulmonary vascular congestion On IV Lasix 40mg daily Monitor weights Monitor intake and output Respiratory pre and post prior to admission On Toprol 50mg daily, Diovan 160mg daily Diovan held this morning for hypotension Albuterol prn for shortness of breath Hypertension, chronic/controlled Episode of hypotension this morning, Diovan held Monitor BP Patient denies any symptoms Pulmonary: COPD, history, not in acute exacerbation No wheezing on exam Albuterol as needed Monitor respiratory status F.E.N. Fluids: tolerating PO Electrolytes: monitor Nutrition: low sodium diet Prophylaxis: DVT: LOS likely < 48 hours, will order PT GI: deferred Disposition: Discharge once cleared by cardiology, full code. Visit type - Emergency Visit Emergency Visit: Yes ED Registration Date: 07/19/17 Care time: The patient presented to the Emergency Department on the above date and was hospitalized for further evaluation of their emergent condition. - New Patient This patient is new to me today: Yes Date on this admission: 07/20/17 - Critical Care Critical Care patient: No - Discharge Referral Referred to [facility] Med P.C.: No
[2017-07-21 07:35] LABS: EOSINOPHIL 7.4 % (0-4.5); MCH 24.9 pg (25.7-33.7); MCHC 31.6 g/dl (32.0-36.0); MEAN CELL VOLUME 78.8 fl (80-96); MEAN PLT VOLUME 9.6 fl (7.5-11.1); NEUTROPHILS 41.1 % (42.8-82.8); PLATELET COUNT 217 K/MM3 (134-434); RDW 15.9 % (11.6-15.6); WHITE BLOOD COUNT 7.2 K/mm3 (4.0-10.0)
[2017-07-21 08:08] LABS: ALBUMIN 3.8 g/dl (3.4-5.0); ALK PHOS 78 U/L (45-117); ANION GAP 10 (8-16); CALCIUM 8.7 mg/dL (8.5-10.1); CO2 22 mmol/L (21-32); CREATININE 1.3 mg/dL (0.55-1.02); GLUCOSE,RANDOM 90 mg/dL (74-106); MAGNESIUM 2.3 mg/dL (1.8-2.4); SGOT/AST 19 U/L (15-37); SGPT/ALT 20 U/L (12-78); TOT PROT 7.3 g/dl (6.4-8.2)
[2017-07-21] MEDS: HEPARIN NA (PORCINE) 5,000 UNITS/ML 1ML VIAL SQ SCH ×3 (09:27→21:36)
[2017-07-21] MEDS: METOPROLOL SUCCINATE 50 MG TAB.SR.24H (FP) PO SCH (09:28)
[2017-07-21] MEDS: VALSARTAN 160 MG TABLET (UD) PO SCH (09:28)
[2017-07-21] MEDS ORDERED: FUROSEMIDE 40 MG TABLET (FP) PO SCH (10:00)
[2017-07-21] MEDS ORDERED: ASPIRIN 81 MG CHEWABLE TABLETS PO SCH (10:00)
--- NOTE | 2017-07-21 11:30 | PN ---
Progress Note (short form) - Note Progress Note: Chief Complaint: sob History of Present Illness: no palpit, dizzy, cp, sob. feels at baseline Current Medications Generic Name Dose Route Start Last Admin Trade Name Shannan PRN Reason Stop Dose Admin Albuterol/Ipratropium 1 amp 07/18/17 12:13 Duoneb - NEB Q4H PRN SHORTNESS OF BREATH Aspirin 81 mg 07/21/17 10:00 07/21/17 09:33 Asa - PO 81 mg DAILY [facility]UC Administration Atorvastatin Calcium 40 mg 07/21/17 22:00 Lipitor - PO HS DUC Furosemide 40 mg 07/21/17 10:00 07/21/17 09:27 Lasix - PO 40 mg DAILY [facility] Administration Heparin Sodium (Porcine) 5,000 unit 07/18/17 22:00 07/21/17 09:27 Heparin - SQ 5,000 unit BID [facility] Administration Metoprolol Succinate 50 mg 07/19/17 10:00 07/21/17 09:28 Toprol Xl - PO 50 mg DAILY [facility] Administration Valsartan 160 mg 07/19/17 10:00 07/21/17 09:28 Diovan - PO Not Given DAILY [facility] Vital Signs Period Temp Pulse Resp BP Sys/Ortiz Pulse Ox Last 24 Hr 97.1 F-98.8 F 88-110 17-18 109-126/60-74 95-98 Constitutional: Yes: Well Nourished, No Distress, Calm Cardiovascular: Yes: Regular Rate and Rhythm, S1, S2. No: JVD (in wheelchair ( in cardiology area)), Gallop, Murmur Respiratory: Yes: Regular, cta bl No: Accessory Muscle Use, Rales, Wheezes Extremities: No: Cold Edema: No Neurological: Yes: Alert, Oriented Psychiatric: No: Agitated Labs: CBC, BMP 07/21/17 05:20 07/21/17 05:20 ecg: sr, old lbbb tele: sr, freq pvc's echo 07/2017: bline lve. lv sys fn severly reduced. severe global HK. nl rv. mild mvp. mod-sev mr. 1+ tr. stress test 07/2017: smalll-mod sized ant/anteroseptal ischemica (mild intensity ), small-mod sized base-apex inf ischemia (mild intensity). EF 23% at rest EF 24 % post stress. cxr 07/18: chf chagnes 07/19: progressive chf findings a/p: 87 f hx htn, copd, here with sob. sob with activity, rarely cp with activity (if more strenuous)/acute systolic HF exacerbation. -suspect acute CHF -she rported brisk diuresis with lasix 40 iv. - echo and mpi today as mentioned above -no signs acs here--no angina sx's. -07/20 Cr bump today on IV lasix. Will transition to PO . monitor wts and ambulate pt to ensure sx's are improving prior to hosp discharge. testing shows severe systolic dysfunction with + ischemia on stress testing. D/w interventionalist and patient --> [place] [facility] [place]. started asa, statin htn: -trending down. monitor. adjusting diuresis as above abnl ecg -pt with old lbbb -no signs acs, cont to trend ce's -echo with severely reduced function. stress test with mild ischemia, plan as mentioned above
--- NOTE | 2017-07-21 13:38 | DS ---
Physical Exam: SUBJECTIVE: Patient seen and examined at the bedside. She denies any chest pain or shortness of breath. Tolerated walking with respiratory therapist without any reports of dyspnea. OBJECTIVE: Oxygen saturations remained stable with ambulation. Transfer to [facility] [place] today for cardiac cath on 07/22. Vital Signs Period Temp Pulse Resp BP Sys/Ortiz Pulse Ox Last 24 Hr 97.1 F-98.8 F 88-110 17-18 109-126/60-74 95-98 PHYSICAL EXAM GENERAL: The patient is awake, alert, and fully oriented, in no acute distress. HEAD: Normal with no signs of trauma. EYES: PERRL, extraocular movements intact, sclera anicteric, conjunctiva clear. No ptosis. ENT: Ears normal, nares patent, oropharynx clear without exudates, moist mucous membranes. NECK: Trachea midline, full range of motion, supple. LUNGS: Breath sounds diminished bilaterally, no wheezing, no accessory muscle use HEART: Regular rate and rhythm, S1, S2 without murmur, rub or gallop. ABDOMEN: Soft, nontender, nondistended, normoactive bowel sounds, no guarding EXTREMITIES: no edema. NEUROLOGICAL: Normal speech, gait not observed. PSYCH: Normal mood, normal affect. SKIN: Warm, dry, normal turgor, no rashes or lesions noted LABS Laboratory Results - last 24 hr 07/21/17 07/21/17 05:20 05:20 WBC 7.2 RBC 4.70 Hgb 11.7 Hct 37.1 MCV 78.8 L MCH 24.9 L MCHC 31.6 L RDW 15.9 H Plt Count 217 MPV 9.6 Neutrophils % 41.1 L Lymphocytes % 42.8 H Monocytes % 7.7 Eosinophils % 7.4 H Basophils % 1.0 Sodium 139 Potassium 3.9 Chloride 107 Carbon Dioxide 22 Anion Gap 10 BUN 24 H D Creatinine 1.3 H Creat Clearance w eGFR 38.84 Random Glucose 90 Calcium 8.7 Magnesium 2.3 Total Bilirubin 1.0 AST 19 ALT 20 Alkaline Phosphatase 78 Total Protein 7.3 Albumin 3.8 HOSPITAL COURSE: Date of Admission:07/19/17 Date of Discharge: 07/21/17 ASSESSMENT/PLAN: Patient is an 87 year old female with a significant past medical history of hypertension and COPD. She was admitted on 07/19/2017 for acute CHF exacerbation. Patient reports worsening shortness of breath with ambulation that required frequent rest periods. She does not have home oxygen, she is usually independent with all her ADLs. Imaging: Echocardiogram 07/19/2017: EF 26.9%, LV boderline dilated, LV systolic function severely reduced, severe global hypokinesis of the left ventricle, mild mitral valve thickening, mild mitral valve prolapse, prolapse of the posterior mitral leaflets, moderate to severe mitral regurgitation, mild tricuspid regurgitation , no pericardial effusion. NM/G/Justus/JANICE 07/19/2017: small to moderate anterior and anteroseptal reversible defect suggest mild intensity ischemia, small to moderate inferior reversible defect from base to apex compatible with mild intensity ischemia, severely reduced left ventricular systolic function with rest LVEF of 23% and post LVEF of 24%. Chest xray 07/18/2017: moderate pulmonary vascular congestion and small pleural effusions with bibasilar opacities, likely atelectasis, likely moderate CHF exacerbation. Enlargement of the cardiac silhouette appears to be slightly more prominent than . EKG 07/18/2017: sinus tachycardia, LBBB @ 105, when compared to ekg of 12/16/2016 , increase in heart rate Cardiology: Shortness of breath secondary to CHF exacerbation, acute Acute systolic CHF exacerbation and with ischemia on stress test For transfer to [facility] [employer] [facility] at [place], likely today pending bed Troponins negative x 3 Chest xray with moderate pulmonary vascular congestion On PO Lasix 40mg daily, ASA 81mg daily, Lipitor Monitor weights Monitor intake and output On Toprol 50mg daily, Diovan 160mg daily Albuterol prn for shortness of breath Hypertension, chronic/controlled On Diovan 160mg daily, Toprol 50mg daily Monitor BP Pulmonary: COPD, history, not in acute exacerbation No wheezing on exam Albuterol as needed Monitor respiratory status F.E.N. Fluids: tolerating PO Electrolytes: monitor Nutrition: low sodium diet Prophylaxis: DVT: Heparin BID GI: deferred Disposition: Transfer to [facility] [place] today for cardiac cath on 07/22. Full code. Minutes to complete discharge: 60 Discharge Summary Reason For Visit: CHF Current Active Problems CHF (congestive heart failure) (Acute) Dyspnea due to congestive heart failure (Acute) Dyspnea on exertion (Acute) Shortness of breath on exertion (Acute) Condition: Guarded - Instructions Diet, Activity, Other Instructions: Transfer to [facility] for cardiac cath. Referrals: Romy Newman MD [Staff Physician] - 1 Week Christopher Boyd MD [Staff Physician] - 1 Week Disposition: TRANSFER ACUTE CARE/OTHER HOSP - Home Medications Comprehensive Discharge Medication List: Ambulatory Orders Olmesartan Medoxomil [Benicar -] 20 mg PO DAILY 12/25/13 Albuterol Sulfate Inhaler - [Ventolin Hfa Inhaler -] 2 inh PO Q6H 07/18/17 Metoprolol Succinate [Toprol Xl] 50 mg PO DAILY 07/18/17 This patient is new to me today: No Emergency Visit: Yes ED Registration Date: 07/19/17 Care time: The patient presented to the Emergency Department on the above date and was hospitalized for further evaluation of their emergent condition. Critical Care patient: No - Discharge Referral Referred to [facility] Med P.C.: No
[2017-07-21] MEDS: ATORVASTATIN CA 40 MG TABLET (FP) PO SCH ×2 (20:13→21:36)
[2017-07-21 21:33] VITALS: BP 130/60; PULSE 98; TEMP 98.8
== END 2017-07-21 22:04 | disposition short-term general hospital (02) | DRG 292 ==
LOC: JER 08:08 → JERBED 10:59 → INTOOBSV 10:59 → OBSVTOIN 07-19 12:41 → J4W 07-19 13:24
PROVIDERS: ADMIT Internal Medicine; ATTEND Nurse Practitioner Family
DX: I11.0 Hypertensive heart disease with heart failure (principal); J98.11 Atelectasis; I50.21 Acute systolic (congestive) heart failure; J44.9 Chronic obstructive pulmonary disease, unspecified; I44.7 Left bundle-branch block, unspecified; E78.5 Hyperlipidemia, unspecified; R94.31 Abnormal electrocardiogram [ECG] [EKG]; R00.0 Tachycardia, unspecified; M19.90 Unspecified osteoarthritis, unspecified site; Z87.891 Personal history of nicotine dependence
CPT/HCPCS: 36415; 71010-TC; 71020-TC; 78452-TC; 80048; 80053; 81003; 82550; 82553; 83735; 83880; 84100; 84484; 85025; 85610; 93005; 93010; 93017; 93306-TC; 94761; 99285-25; A9502; G0378; J1644; J2785

== ENCOUNTER 2017-08-25 10:48 | Inpatient (IN) | payer OTHER ==
[2017-08-25 10:56] VITALS: BMI 24.7
[2017-08-25] MEDS ORDERED: ACETAMINOPHEN 325 MG TABLET (FP) PO ONE (11:00)
--- NOTE | 2017-08-25 11:27 | PDOC ---
History of Present Illness - General History Source: Patient, Family Exam Limitations: No Limitations - History of Present Illness Initial Comments: 08/25/17 11:38 The patient is an 87F with a history of HTN and possibly COPD, who presents to the ED with low blood pressure today. Pt had a recent cardiac catheterization at [facility] one month ago. At home pts BP was noted to be low at 74 and she reports having a fever of 102 degrees. Today the patient reports experiencing chills, dizzness, and shortness of breath. Pt's son called her Actuary Manager Dr. Boyd and the pt was advised to stop her water pill. She decided to come into today because her symptoms have not improved. As per son, the patient has not been eating much due to epigastric pain and nausea; denies any vomiting. Pt also reports that she has been experiencing a productive cough and sore throat for the past month. Pt did get the flu shot this year and the pneumo vaccine a year ago. Denies any chest pain or palpitations. PCP: Dr. Gomez Actuary Manager: Dr. Boyd <Cris Barkley - Last Filed: 08/25/17 12:53> <Sheela Rodriges - Last Filed: 08/25/17 13:05> - General Chief Complaint: SIRS, Suspected/Possible Stated Complaint: CHEST PAIN, FATIGUE Time Seen by Provider: 08/25/17 11:12 Past History <Cris Barkley - Last Filed: 08/25/17 12:53> - Past Medical History COPD: No HTN: Yes Hypercholesterolemia: Yes - Immunization History Immunization Up to Date: Yes - Suicide/Smoking/Psychosocial Hx Smoking Status: No Smoking History: Never smoked Have you smoked in the past 12 months: No Number of Cigarettes Smoked Daily: 0 Hx Alcohol Use: No Drug/Substance Use Hx: No Substance Use Type: None <Sheela Rodriges - Last Filed: 08/25/17 13:05> - Past Medical History Allergies/Adverse Reactions: Allergies Allergy/AdvReac Type Severity Reaction Status Date / Time No Known Allergies Allergy Verified 08/25/17 10:56 Home Medications: Ambulatory Orders Albuterol Sulfate Inhaler - [Ventolin HFA Inhaler -] 2 inh PO Q6H 07/18/17 Metoprolol Succinate [Toprol Xl] 50 mg PO DAILY 07/18/17 Albuterol 2.5/Ipratropium 0.5 [Duoneb -] 1 amp NEB Q4H PRN amp 07/21/17 Aspirin [ASA -] 81 mg PO DAILY tab.chew 07/21/17 Atorvastatin Ca [Lipitor] 40 mg PO HS #30 tablet 07/21/17 Furosemide [Lasix -] 40 mg PO DAILY tablet 07/21/17 Heparin - 5,000 unit SQ BID vial 07/21/17 Review of Systems - Review of Systems Able to Perform ROS?: Yes Comments:: 08/25/17 11:40 GENERAL/CONSTITUTIONAL: +chills, fever, loss of appetite. No weakness. HEAD, EYES, EARS, NOSE AND THROAT: +sore throat. No change in vision. No ear pain or discharge. CARDIOVASCULAR: +shortness of breath. No chest pain. RESPIRATORY: +Cough. No wheezing, or hemoptysis. GASTROINTESTINAL: +nausea, epigastric pain. No vomiting, diarrhea or constipation. GENITOURINARY: No dysuria, frequency, or change in urination. MUSCULOSKELETAL: No joint or muscle swelling or pain. No neck or back pain. SKIN: No rash NEUROLOGIC: +dizziness. No headache, vertigo, loss of consciousness, or change in strength/sensation. ENDOCRINE: No increased thirst. No abnormal weight change. HEMATOLOGIC/LYMPHATIC: No anemia, easy bleeding, or history of blood clots. ALLERGIC/IMMUNOLOGIC: No hives or skin allergy. <Cris Barkley - Last Filed: 08/25/17 12:53> *Physical Exam - Vital Signs Last Vital Signs Temp Pulse Resp BP Pulse Ox 100.9 F H 120 H 22 121/58 97 08/25/17 10:49 08/25/17 10:49 08/25/17 10:49 08/25/17 10:49 08/25/17 10:49 - Physical Exam Comments: 08/25/17 11:44 GENERAL: Awake, alert, and fully oriented, in no acute distress HEAD: No signs of trauma EYES: PERRLA, EOMI, sclera anicteric, conjunctiva clear ENT: Auricles normal inspection, hearing grossly normal, nares patent, oropharynx clear without exudates. Moist mucosa NECK: Normal ROM, supple, no lymphadenopathy, JVD, or masses LUNGS: +Coarse breath sounds bilaterally. No wheezes, and no crackles HEART: +Tachycardic. Normal S1 and S2, no murmurs, rubs or gallops ABDOMEN: Soft, nontender, normoactive bowel sounds. No guarding, no rebound. No masses EXTREMITIES: Normal range of motion, no edema. No clubbing or cyanosis. No cords, erythema, or tenderness NEUROLOGICAL: Cranial nerves II through XII grossly intact. Normal speech, normal gait SKIN: +Warm to touch. Dry, normal turgor, no rashes or lesions noted <Cris Barkley - Last Filed: 08/25/17 12:53> - Vital Signs Last Vital Signs Temp Pulse Resp BP Pulse Ox 100.9 F H 120 H 22 121/58 97 08/25/17 10:49 08/25/17 10:49 08/25/17 10:49 08/25/17 10:49 08/25/17 10:49 <Sheela Rodriges - Last Filed: 08/25/17 13:05> ED Treatment Course - LABORATORY CBC & Chemistry Diagram: 08/25/17 11:27 08/25/17 11:27 - Medications Given in the ED: ED Medications Discontinued Medications Generic Name Dose Route Start Last Admin Trade Name Freq PRN Reason Stop Dose Admin Acetaminophen 650 mg 08/25/17 11:00 08/25/17 11:00 Tylenol - PO 08/25/17 11:01 650 mg NOW ONE Administration <Cris Barkley - Last Filed: 08/25/17 12:53> - LABORATORY CBC & Chemistry Diagram: 08/25/17 11:27 08/25/17 11:27 - Medications Given in the ED: ED Medications Discontinued Medications Generic Name Dose Route Start Last Admin Trade Name Freq PRN Reason Stop Dose Admin Acetaminophen 650 mg 08/25/17 11:00 08/25/17 11:00 Tylenol - PO 08/25/17 11:01 650 mg NOW ONE Administration <Sheela Rodriges - Last Filed: 08/25/17 13:05> Medical Decision Making - Medical Decision Making 08/25/17 11:46 a/p: 87yo female with cough/sob/fever x 2 days -concern given hx of PNA in the past, will check labs, cultures, lactate -cxr -ekg -ivf hydration -bp has been low at home x 1 month since taking lasix -stopped lasix yesterday -will monitor and reassess tylenol given in triage tachy on exam warm on exam 08/25/17 13:03 pt with fever elevated cr pending UA cultures pending will need admission for ivf hydration repeat labs case discussed with efrem from hospitalist service, accepts pt to service <Sheela Rodriges - Last Filed: 08/25/17 13:05> *DC/Admit/Observation/Transfer - Attestations Scribe Attestion: 08/25/17 11:45 Documentation prepared by Cris Barkley, acting as medical billing and coding instructor for Sheela Rodriges DO, MD. <Cris Barkley - Last Filed: 08/25/17 12:53> - Discharge Dispostion Admit: Yes - Attestations Physician Attestion: 08/25/17 13:05 I, Dr. Sheela Rodriges DO, attest that this document has been prepared under my direction and personally reviewed by me in its entirety. I further attest, that it accurately reflects all work, treatment, procedures and medical decision -making performed by me. <Sheela Rodriges - Last Filed: 08/25/17 13:05> Diagnosis at time of Disposition: Acute kidney injury - Discharge Dispostion Condition at time of disposition: Fair - Referrals Referrals: Romy Newman MD [Primary Care Provider] - - Patient Instructions - Post Discharge Activity
[2017-08-25] MEDS ORDERED: SODIUM CHLORIDE 0.9% 1000 ML INFUS.BAG IV ONE ×2 (11:28→12:50)
[2017-08-25 12:00] LABS: BASO % 0.4 % (0-2.0); EOS % 0.4 % (0-4.5); HEMATOCRIT 34.8 % (32.4-45.2); HEMOGLOBIN 11.1 GM/dL (10.7-15.3); LYMPH % 11.9 % (8-40); MCH 24.7 pg (25.7-33.7); MEAN CELL VOLUME 77.3 fl (80-96); MEAN PLT VOLUME 9.8 fl (7.5-11.1); MONO % 6.5 % (3.8-10.2); NEUT % 80.8 % (42.8-82.8); PLATELET COUNT 140 K/MM3 (134-434); RBC 4.51 M/mm3 (3.60-5.2); RDW 16.9 % (11.6-15.6); WHITE BLOOD COUNT 9.3 K/mm3 (4.0-10.0)
[2017-08-25 12:01] LABS: VENOUS PC02 27.9 mmHg (38-52); VENOUS PH 7.48 (7.32-7.42); VENOUS PO2 98.4 mmHg (28-48)
[2017-08-25 12:13] LABS: INR 1.02 (0.82-1.09); PROTHROMBIN TIME (PATIENT) 11.5 SEC (9.98-11.88)
[2017-08-25 12:16] LABS: ACTIVATED PTT 30.5 SECONDS (26.9-34.4)
[2017-08-25 12:36] LABS: ALBUMIN 3.5 g/dl (3.4-5.0); ANION GAP 11 (8-16); BLOOD UREA NITROGEN 33 mg/dL (7-18); CALCIUM 8.3 mg/dL (8.5-10.1); CHLORIDE 108 mmol/L (98-107); CO2 20 mmol/L (21-32); CREATININE 1.9 mg/dL (0.55-1.02); GLUCOSE,RANDOM 112 mg/dL (74-106); MAGNESIUM 2.5 mg/dL (1.8-2.4); POTASSIUM 4.1 mmol/L (3.5-5.1); SGOT/AST 23 U/L (15-37); SGPT/ALT 25 U/L (12-78); SODIUM 139 mmol/L (136-145)
[2017-08-25 12:40] LABS: ALK PHOS 69 U/L (45-117); BILIRUBIN,TOTAL 0.8 mg/dL (0.2-1.0); TOT PROT 7.2 g/dl (6.4-8.2)
[2017-08-25 12:47] LABS: LIPASE 211 U/L (73-393)
--- NOTE | 2017-08-25 12:58 | EKG ---
Test Reason : Blood Pressure : / mmHG Vent. Rate : 116 BPM Atrial Rate : 116 BPM P-R Int : 114 ms QRS Dur : 130 ms QT Int : 330 ms P-R-T Axes : 055 018 239 degrees QTc Int : 458 ms SINUS TACHYCARDIA LEFT BUNDLE BRANCH BLOCK ABNORMAL ECG WHEN COMPARED WITH ECG OF 18-JUL-2017 08:31, LEFT BUNDLE BRANCH BLOCK IS NOW PRESENT Confirmed by ALYSSA WAITE MD ([id number]) on 08/25/2017 12:58:08 PM Referred By: Confirmed By:ALYSSA WAITE MD
--- NOTE | 2017-08-25 14:29 | CON.CARD ---
Cardiology Consult (text) - Consultation Consultation Note: cc: fever hpi: 87 with h/o new diagnosis of cardiomyopathy last month, cad, lbbb, htn, copd, here with fever/infectious sx's and bhavna. productive cough a for the past month and early satiety since being discharged from [facility] last month. In the past 2 days developed sudden worsening of weakness and poor po intake. diarrhea, chills, dizzness today. BP was noted to be low at 74 and she reports having a fever of 102 degrees. Pt's son called her Q[employer] Automation Developer Dr. Boyd today and the pt was advised to stop her water pill. baseline almeida slowly worsening since discharge from [facility]. Patient had cardiac catheterization last month. --> medical mgm't of obstructive cad. No cp, palps, orthopnea, loc, pnd, le edema. pmh: per hpi psh: thyroid surgery social: ex tob fam: no premature cad, scd ros: per hpi; no marmolejo,vision changes, rashes, myalgias, bleeding. meds: Ambulatory Orders Albuterol Sulfate Inhaler - [Ventolin HFA Inhaler -] 2 inh PO Q6H 07/18/17 Metoprolol Succinate [Toprol Xl] 50 mg PO DAILY 07/18/17 Albuterol 2.5/Ipratropium 0.5 [Duoneb -] 1 amp NEB Q4H PRN amp 07/21/17 Aspirin [ASA -] 81 mg PO DAILY tab.chew 07/21/17 Atorvastatin Ca [Lipitor] 40 mg PO HS #30 tablet 07/21/17 Furosemide [Lasix -] 40 mg PO DAILY tablet 07/21/17 Heparin - 5,000 unit SQ BID vial 07/21/17 also on benicar 20 mg/day Current Medications Albuterol/Ipratropium (Duoneb -) 1 amp NEB Q4H PRN PRN Reason: SHORTNESS OF BREATH Aspirin (Asa -) 81 mg PO DAILY DUC Atorvastatin Calcium (Lipitor -) 40 mg PO HS DUC Heparin Sodium (Porcine) (Heparin -) 5,000 unit SQ BID DUC Metoprolol Succinate (Toprol Xl -) 50 mg PO DAILY DUC pe: Vital Signs - 24 hr 08/25/17 08/25/17 10:49 13:45 Temperature 100.9 F H Pulse Rate 120 H 98 H Respiratory 22 18 Rate Blood Pressure 121/58 105/52 O2 Sat by Pulse 97 95 Oximetry (%) Intake & Output 08/23/17 08/24/17 08/25/17 08/26/17 07:59 07:59 07:59 07:59 Weight 135 lb 0.001 oz nad calm jvd not elevated, neck supple rrr s1s2 no mrg ctab nl eff aao3 no le e/c/c abd nt nd pos bs no jaundice diaphoresis pos dp pt no carotid bruits CBC, BMP 08/25/17 11:27 08/25/17 11:27 Laboratory Tests 07/18/17 07/21/17 08/25/17 09:46 05:20 11:27 INR 1.02 Creatinine 1.3 H Lactic Acid Magnesium Total Bilirubin AST ALT Alkaline Phosphatase Creatine Kinase Troponin I B-Natriuretic Peptide 3496.53 H Albumin Lipase 08/25/17 08/25/17 11:27 11:27 INR Creatinine Lactic Acid 1.4 Magnesium 2.5 H Total Bilirubin 0.8 AST 23 D ALT 25 D Alkaline Phosphatase 69 Creatine Kinase 202 H Troponin I 0.02 B-Natriuretic Peptide Albumin 3.5 Lipase 211 EKG: sinus tach. LBBB. cxr: clear lung dubon, improved from prior. echo 07/2017 ([facility]): bline lve. lv sys fn severly reduced. severe global HK. nl rv. mild mvp. mod-sev mr. 1+ tr. echo 07/2017 ([facility]): mild lve, g1dd, lvef 29%, nl rv, sev lae, mild mr, nl rvsp stress test 07/2017: smalll-mod sized ant/anteroseptal ischemica (mild intensity ), small-mod sized base-apex inf ischemia (mild intensity). EF 23% at rest EF 24 % post stress cath 07/2017: distal disease, no pci done, left for med rx: 30-50 mrca 70-80 rpda, 70-80 av continuation. 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 EF 35% lvedp 15. 87 with h/o new diagnosis of cardiomyopathy last month, cad, lbbb, htn, copd, here with fever/infectious sx's and bhavna. systolic cardiomyopathy - new dx. s/p cath last month, see above. - currently with poor po intake and increased gi loses. weight down on most recent office visit from 137 --> 133 lbs. appears volume depleted on exam with BHAVNA. getting IVF. Monitor volume status closely. May need to resume po lasix at lower dose. daily standing weights, bmp, i/o's. - holding benicar (currently with bhavna). monitor bp on toprol. cad - cath with mild non-intervenable disease. - con't asa, statin - ce's neg x 1. con't stephanie. ekg with known lbbb. htn: - as above. fever - per pmd.
--- NOTE | 2017-08-25 14:32 | HP ---
CHIEF COMPLAINT: weakness, loss of appetite, dizziness PCP: Dr. Newman HISTORY OF PRESENT ILLNESS: This is an 87 year old female with PMHx of HTN, COPD, systolic heart failure, recent cardiac cath at [facility] 07/2017, who presented to the ED with increased dizziness, weakness, loss of appetite, low blood pressure. The patient and son are present. They report that since the patient was discharged from [facility], she has been taking Lasix 40mg po daily. They state her blood pressures at home have been systolic 70-90s. The patient reports she has been feeling dizzy, weak, and has had a decrease in her appetite since then. She reports she called Dr. Boyd yesterday and was told to stop taking her Lasix. She also reports having a cough with white sputum. She states that she has had trouble sleeping over the past few weeks and tried to drink 1 beer per night but still not able to sleep so then she started drinking 1 glass of wine per week and that did not help either. She denies any fever, chills, dysuria, chest pain, chest tightness, syncope, nausea, vomiting. The patient does report having 3 bouts of non-bloody diarrhea this morning ER course was notable for: (1) WBC 9.3 (2) Cr 1.9 (recent admission with 1.3) (3) BNP 5654 (4) Chest X-ray: large heart, clear lungs, no acute (5) Temp 100.9, pulse 120, BP 121/58, resp 22, O2 97% on RA Recent Travel: denies PAST MEDICAL HISTORY: as above PAST SURGICAL HISTORY: thyroidectomy Social History: Smoking: denies Alcohol: as above Drugs: denies Family History: Allergies No Known Allergies Allergy (Verified 08/25/17 10:56) HOME MEDICATIONS: Home Medications Medication Instructions Recorded Albuterol Sulfate Inhaler - 2 inh PO Q6H 07/18/17 [Ventolin HFA Inhaler -] Metoprolol Succinate [Toprol Xl] 50 mg PO DAILY 07/18/17 Albuterol 2.5/Ipratropium 0.5 1 amp NEB Q4H PRN amp 07/21/17 [Duoneb -] Aspirin [ASA -] 81 mg PO DAILY tab.chew 07/21/17 Atorvastatin Ca [Lipitor] 40 mg PO HS #30 tablet 07/21/17 Furosemide [Lasix -] 40 mg PO DAILY tablet 07/21/17 Folic Acid 1 mg PO DAILY 08/25/17 REVIEW OF SYSTEMS CONSTITUTIONAL: Fever in the ED. Generalized weakness and loss of appetite that began when the patient started lasix about 1 month ago. Absent: chills, diaphoresis, weight change HEENT: Absent: rhinorrhea, nasal congestion, throat pain, throat swelling, difficulty swallowing, mouth swelling, ear pain, eye pain, visual changes CARDIOVASCULAR: Absent: chest pain, syncope, palpitations, irregular heart rate , lightheadedness, peripheral edema RESPIRATORY: Mild shortness of breath x 1 month. Absent: cough, dyspnea with exertion, orthopnea, wheezing, stridor, hemoptysis GASTROINTESTINAL:Absent: abdominal pain, abdominal distension, nausea, vomiting , diarrhea, constipation, melena, hematochezia GENITOURINARY: Absent: dysuria, frequency, urgency, hesitancy, hematuria, flank pain, genital pain MUSCULOSKELETAL: Absent: myalgia, arthralgia, joint swelling, back pain, neck pain SKIN: Absent: rash, itching, pallor HEMATOLOGIC/IMMUNOLOGIC: Absent: easy bleeding, easy bruising, lymphadenopathy, frequent infections ENDOCRINE:Absent: unexplained weight gain, unexplained weight loss, heat intolerance, cold intolerance NEUROLOGIC: Absent: headache, focal weakness or paresthesias, dizziness, unsteady gait, seizure, mental status changes, bladder or bowel incontinence PSYCHIATRIC: Absent: anxiety, depression, suicidal or homicidal ideation, hallucinations. PHYSICAL EXAMINATION Vital Signs - 24 hr 08/25/17 08/25/17 10:49 13:45 Temperature 100.9 F H Pulse Rate 120 H 98 H Respiratory 22 18 Rate Blood Pressure 121/58 105/52 O2 Sat by Pulse 97 95 Oximetry (%) GENERAL: Awake, alert, and fully oriented, in no acute distress. HEAD: Normal with no signs of trauma. EYES: Pupils equal, round and reactive to light, extraocular movements intact, sclera anicteric, conjunctiva clear. No lid lag. EARS, NOSE, THROAT: Ears normal, nares patent, oropharynx clear without exudates. Moist mucous membranes. NECK: Normal range of motion, supple without lymphadenopathy, JVD, or masses. LUNGS: Breath sounds equal, clear to auscultation bilaterally. No wheezes, and no crackles. No accessory muscle use. HEART: Tachycardia, S1S2 ABDOMEN: Soft, nontender, not distended, normoactive bowel sounds, no guarding, no rebound, no masses. No hepatomegaly or splenomegaly. MUSCULOSKELETAL: Normal range of motion at all joints. No bony deformities or tenderness. No CVA tenderness. UPPER EXTREMITIES: 2+ pulses, warm, well-perfused. No cyanosis. No clubbing. No peripheral edema. LOWER EXTREMITIES: 2+ pulses, warm, well-perfused. No calf tenderness. No peripheral edema. NEUROLOGICAL: Cranial nerves II-XII intact. Normal speech. Gait not observed PSYCHIATRIC: Cooperative. Good eye contact. Appropriate mood and affect. SKIN: Warm, dry, normal turgor, no rashes or lesions noted, normal capillary refill. Laboratory Results - last 24 hr 08/25/17 08/25/17 08/25/17 11:27 11:27 11:27 WBC RBC Hgb Hct MCV MCH MCHC RDW Plt Count MPV Neutrophils % Lymphocytes % Monocytes % Eosinophils % Basophils % PT with INR 11.50 INR 1.02 PTT (Actin FS) 30.5 VBG pH POC VBG pCO2 POC VBG pO2 Mixed VBG HCO3 Sodium 139 Potassium 4.1 Chloride 108 H Carbon Dioxide 20 L Anion Gap 11 BUN 33 H D Creatinine 1.9 H D Creat Clearance w eGFR 25.06 Random Glucose 112 H D Lactic Acid 1.4 Calcium 8.3 L Magnesium 2.5 H Total Bilirubin 0.8 AST 23 D ALT 25 D Alkaline Phosphatase 69 Creatine Kinase 202 H Troponin I 0.02 B-Natriuretic Peptide Total Protein 7.2 Albumin 3.5 Lipase 211 08/25/17 08/25/17 08/25/17 11:27 11:27 11:29 WBC 9.3 RBC 4.51 Hgb 11.1 Hct 34.8 MCV 77.3 L MCH 24.7 L MCHC 32.0 RDW 16.9 H Plt Count 140 D MPV 9.8 Neutrophils % 80.8 D Lymphocytes % 11.9 D Monocytes % 6.5 Eosinophils % 0.4 D Basophils % 0.4 PT with INR INR PTT (Actin FS) VBG pH 7.48 H POC VBG pCO2 27.9 L POC VBG pO2 98.4 H Mixed VBG HCO3 21.0 Sodium Potassium Chloride Carbon Dioxide Anion Gap BUN Creatinine Creat Clearance w eGFR Random Glucose Lactic Acid Calcium Magnesium Total Bilirubin AST ALT Alkaline Phosphatase Creatine Kinase Troponin I B-Natriuretic Peptide 5654.89 H Total Protein Albumin Lipase Assessment: This is an 87 year old female with PMHx of HTN, COPD, systolic heart failure, recent cardiac cath at the [facility] 07/2017, who presented to the ED with increased dizziness, weakness, loss of appetite, low blood pressure. Plan: 1) BHAVNA on CKD - Likely 2/2 dehydration from diarrhea and lasix use - Hold lasix - Gentle hydration - F/u feurea - If Cr worsens, consider kidney/bladder ultrasound - Continue to monitor Cr 2) Chronic systolic cardiomyopathy - Hold Lasix CAD - Cardiac cath 07/2017 with mild non-intervenable disease - Continue ASA - Continue Lipitor - Trop x1 negative, f/u trop x2 more - Appreciate cardiology consult 3) Fever - Cough with clear/white sputum - Chest X-ray with no acute pathology - F/u UA/urine culture - F/u blood culture - Patient with diarrhea, f/u stool studies - Will hold off on abx until source identified 4) COPD - No evidence of acute COPD exacerbation - Continue duonebs - Not on any other home medications 5) F/E/N: - Sodium controlled diet - Monitor electrolytes 6) Prophylaxis: - Heparin 5,000u sq bid - PT 7) Dispo: - Requires continued inpatient care CODE STATUS: FULL CODE Visit type - Emergency Visit Emergency Visit: Yes ED Registration Date: 08/25/17 Care time: The patient presented to the Emergency Department on the above date and was hospitalized for further evaluation of their emergent condition. - New Patient This patient is new to me today: Yes Date on this admission: 08/25/17 - Critical Care Critical Care patient: No
[2017-08-25] MEDS ORDERED: SODIUM CHLORIDE 1,000 ML IV SCH (15:00)
[2017-08-25 15:46] LABS: URINE APPEARANCE CLOUDY; URINE BILIRUBIN NEGATIVE (NEGATIVE); URINE BLOOD NEGATIVE (NEGATIVE); URINE COLOR DKYELLOW; URINE GLUCOSE (UA) NEGATIVE (NEGATIVE); URINE KETONE TRACE (NEGATIVE); URINE LEUK ESTERASE NEGATIVE (NEGATIVE); URINE NITRITE NEGATIVE (NEGATIVE); URINE UROBILINOGEN NEGATIVE mg/dL (0.2-1.0)
[2017-08-25 15:48] LABS: URINE PROTEIN 1+ (NEGATIVE)
[2017-08-25 15:49] LABS: EPI CELLS RARE /HPF (FEW); GRANULAR CASTS 79 /lpf; URINE BACTERIA RARE /hpf (NONE SEEN); URINE HYALINE CAST 48 /lpf; URINE MUCUS RARE
[2017-08-26] MEDS ORDERED: HEPARIN NA (PORCINE) 5,000 UNITS/ML 1ML VIAL ONE (02:43)
[2017-08-26] MEDS ORDERED: ATORVASTATIN CA 40 MG TABLET (FP) ONE (02:43)
[2017-08-26] MEDS: HEPARIN NA (PORCINE) 5,000 UNITS/ML 1ML VIAL SQ SCH ×3 (02:57→21:40)
[2017-08-26] MEDS: ATORVASTATIN CA 40 MG TABLET (FP) PO SCH ×2 (02:57→21:40)
[2017-08-26] MEDS ORDERED: ACETAMINOPHEN 325 MG TABLET (FP) ONE (03:09)
[2017-08-26] MEDS ORDERED: ACETAMINOPHEN 325 MG TABLET (FP) PO ONE (03:43)
[2017-08-26 07:17] LABS: HEMATOCRIT 33.7 % (32.4-45.2); HEMOGLOBIN 10.6 GM/dL (10.7-15.3); MCH 24.4 pg (25.7-33.7); MCHC 31.4 g/dl (32.0-36.0); MEAN CELL VOLUME 77.9 fl (80-96); MEAN PLT VOLUME 9.8 fl (7.5-11.1); PLATELET COUNT 145 K/MM3 (134-434); RBC 4.33 M/mm3 (3.60-5.2); RDW 17.3 % (11.6-15.6); WHITE BLOOD COUNT 8.3 K/mm3 (4.0-10.0)
[2017-08-26 07:35] LABS: ALBUMIN 3.2 g/dl (3.4-5.0); ANION GAP 11 (8-16); BLOOD UREA NITROGEN 29 mg/dL (7-18); CALCIUM 8.3 mg/dL (8.5-10.1); CHLORIDE 115 mmol/L (98-107); CO2 19 mmol/L (21-32); GLUCOSE,RANDOM 87 mg/dL (74-106); MAGNESIUM 2.7 mg/dL (1.8-2.4); PHOSPHOROUS 3.8 mg/dL (2.5-4.9); POTASSIUM 3.9 mmol/L (3.5-5.1); SGPT/ALT 32 U/L (12-78); SODIUM 145 mmol/L (136-145)
[2017-08-26 07:38] LABS: ALK PHOS 60 U/L (45-117); BILIRUBIN,TOTAL 0.7 mg/dL (0.2-1.0); CREATININE 1.4 mg/dL (0.55-1.02); SGOT/AST 42 U/L (15-37); TOT PROT 6.6 g/dl (6.4-8.2)
[2017-08-26] MEDS: METOPROLOL SUCCINATE 50 MG TAB.SR.24H (FP) PO SCH (09:45)
[2017-08-26] MEDS: ASPIRIN 81 MG CHEWABLE TABLETS PO SCH (09:45)
[2017-08-26] MEDS: ALBUTEROL SO4 2.5/IPRATROPIUM 0.5 INH SOL 3 ML VIAL.NEB. NEB PRN (09:46)
--- NOTE | 2017-08-26 11:14 | PN ---
Progress Note (short form) - Note Progress Note: s: no cp sob palps dizzy o: Vital Signs Period Temp Pulse Resp BP Sys/Ortiz Pulse Ox Last 24 Hr 97.6 F-99.4 F 70-131 16-20 105-124/47-78 94-99 nad calm jvd not elevated, neck supple rrr s1s2 no mrg ctab nl eff aao3 no le e/c/c abd nt nd pos bs no jaundice diaphoresis Current Medications Generic Name Dose Route Start Last Admin Trade Name Freq PRN Reason Stop Dose Admin Albuterol/Ipratropium 1 amp 08/25/17 13:48 08/26/17 09:46 Duoneb - NEB 1 amp Q4H PRN Administration SHORTNESS OF BREATH Aspirin 81 mg 08/26/17 10:00 08/26/17 09:45 Asa - PO 81 mg DAILY UDC Administration Atorvastatin Calcium 40 mg 08/25/17 22:00 08/26/17 02:57 Lipitor - PO 40 mg HS DUC Administration Heparin Sodium (Porcine) 5,000 unit 08/25/17 22:00 08/26/17 09:44 Heparin - SQ 5,000 unit BID DUC Administration Sodium Chloride 1,000 mls @ 50 mls/hr 08/25/17 15:00 08/25/17 18:20 Normal Saline - IV 08/26/17 14:53 50 mls/hr ASDIR DUC Administration Metoprolol Succinate 50 mg 08/26/17 10:00 08/26/17 09:45 Toprol Xl - PO 50 mg DAILY DUC Administration CBC, BMP 08/26/17 06:00 08/26/17 06:00 EKG: sinus tach. LBBB. cxr: clear lung dubon, improved from prior. echo 07/2017 ([facility]): bline lve. lv sys fn severly reduced. severe global HK. nl rv. mild mvp. mod-sev mr. 1+ tr. echo 07/2017 ([facility]): mild lve, g1dd, lvef 29%, nl rv, sev lae, mild mr, nl rvsp stress test 07/2017: smalll-mod sized ant/anteroseptal ischemica (mild intensity ), small-mod sized base-apex inf ischemia (mild intensity). EF 23% at rest EF 24 % post stress cath 07/2017: distal disease, no pci done, left for med rx: 30-50 mrca 70-80 rpda, 70-80 av continuation. 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 EF 35% lvedp 15. tele: sinus tachy, sr currently in 80s-90s a/p: 87 with h/o new diagnosis of cardiomyopathy last month, cad, lbbb, htn, copd, here with fever/infectious sx's and bhavna. chronic systolic cardiomyopathy - recent dx. s/p cath last month, see above. - currently with poor po intake and increased gi loses. weight down on most recent office visit from 137 --> 133 lbs. appears volume depleted on exam with BHAVNA. getting IVF. Monitor volume status closely. When cr at [facility] will resume po lasix at lower dose of 20 mg qd (was on 40 qd). - holding benicar (currently with bhavna). monitor bp on toprol. cad - cath with mild non-intervenable disease. - con't asa, statin - ekg with known lbbb. - no signs acs htn: - as above. fever - per pmd. no need for tele at this time
--- NOTE | 2017-08-26 16:24 | PN ---
Progress Note (short form) - Note Progress Note: Subjective: The patient was seen and examined at the bedside, she still has complaints of diarrhea, but she states she is feeling much better today and is not as weak. Current Medications Generic Name Dose Route Start Last Admin Trade Name Freq PRN Reason Stop Dose Admin Albuterol/Ipratropium 1 amp 08/25/17 13:48 08/26/17 09:46 Duoneb - NEB 1 amp Q4H PRN Administration SHORTNESS OF BREATH Aspirin 81 mg 08/26/17 10:00 08/26/17 09:45 Asa - PO 81 mg DAILY DUC Administration Atorvastatin Calcium 40 mg 08/25/17 22:00 08/26/17 02:57 Lipitor - PO 40 mg HS DUC Administration Heparin Sodium (Porcine) 5,000 unit 08/25/17 22:00 08/26/17 09:44 Heparin - SQ 5,000 unit BID DUC Administration Sodium Chloride 1,000 mls @ 75 mls/hr 08/26/17 15:30 08/26/17 16:30 Normal Saline - IV 75 mls/hr ASDIR DUC Administration Metoprolol Succinate 50 mg 08/26/17 10:00 08/26/17 09:45 Toprol Xl - PO 50 mg DAILY DUC Administration Objective: Vital Signs Period Temp Pulse Resp BP Sys/Ortiz Pulse Ox Last 24 Hr 97.6 F-99.6 F 70-131 16-20 106-124/47-74 94-99 Physical Exam: GENERAL: Awake, alert, and fully oriented, in no acute distress. LUNGS: Breath sounds equal, clear to auscultation bilaterally. No wheezes, and no crackles. No accessory muscle use. HEART: Tachycardia, S1S2 ABDOMEN: Soft, nontender, not distended, normoactive bowel sounds, no guarding, no rebound, no masses. No hepatomegaly or splenomegaly. MUSCULOSKELETAL: Normal range of motion at all joints. No bony deformities or tenderness. No CVA tenderness. UPPER EXTREMITIES: 2+ pulses, warm, well-perfused. No cyanosis. No clubbing. No peripheral edema. LOWER EXTREMITIES: 2+ pulses, warm, well-perfused. No calf tenderness. No peripheral edema. CBCD WBC 8.3 K/mm3 (4.0-10.0) 08/26/17 06:00 RBC 4.33 M/mm3 (3.60-5.2) 08/26/17 06:00 Hgb 10.6 GM/dL (10.7-15.3) L 08/26/17 06:00 Hct 33.7 % (32.4-45.2) 08/26/17 06:00 MCV 77.9 fl (80-96) L 08/26/17 06:00 MCHC 31.4 g/dl (32.0-36.0) L 08/26/17 06:00 RDW 17.3 % (11.6-15.6) H 08/26/17 06:00 Plt Count 145 K/MM3 (134-434) 08/26/17 06:00 MPV 9.8 fl (7.5-11.1) 08/26/17 06:00 CMP Sodium 145 mmol/L (136-145) 08/26/17 06:00 Potassium 3.9 mmol/L (3.5-5.1) 08/26/17 06:00 Chloride 115 mmol/L (98-107) H 08/26/17 06:00 Carbon Dioxide 19 mmol/L (21-32) L 08/26/17 06:00 Anion Gap 11 (8-16) 08/26/17 06:00 BUN 29 mg/dL (7-18) H 08/26/17 06:00 Creatinine 1.4 mg/dL (0.55-1.02) H D 08/26/17 06:00 Creat Clearance w eGFR 35.65 (>60) 08/26/17 06:00 Random Glucose 87 mg/dL (74-106) D 08/26/17 06:00 Calcium 8.3 mg/dL (8.5-10.1) L 08/26/17 06:00 Total Bilirubin 0.7 mg/dL (0.2-1.0) 08/26/17 06:00 AST 42 U/L (15-37) H D 08/26/17 06:00 ALT 32 U/L (12-78) D 08/26/17 06:00 Alkaline Phosphatase 60 U/L (45-117) 08/26/17 06:00 Total Protein 6.6 g/dl (6.4-8.2) 08/26/17 06:00 Albumin 3.2 g/dl (3.4-5.0) L 08/26/17 06:00 CARDIAC ENZYMES Creatine Kinase 215 IU/L (26-192) H 08/25/17 20:45 Troponin I 0.02 ng/ml (0.00-0.05) 08/25/17 20:45 Microbiology 08/25/17 11:30 Blood - Peripheral Venous Blood Culture - Preliminary NO GROWTH OBTAINED AFTER 24 HOURS, INCUBATION TO CONTINUE FOR 4 DAYS. 08/25/17 11:21 Blood - Peripheral Venous Blood Culture - Preliminary NO GROWTH OBTAINED AFTER 24 HOURS, INCUBATION TO CONTINUE FOR 4 DAYS. 08/25/17 17:35 Nasopharyngeal Swab Influenza Types A,B Antigen (FRANCESCA) - Final 08/25/17 17:35 Nasopharyngeal Swab - Final Assessment: This is an 87 year old female with PMHx of HTN, COPD, systolic heart failure, [facility], who presented to the ED with increased dizziness, weakness, loss of appetite, low blood pressure. Plan: 1) BHAVNA on CKD - Likely 2/2 dehydration from diarrhea and lasix use - Hold lasix - Gentle hydration - Cr continues to improve with IV hydration 2) Chronic systolic cardiomyopathy - Hold Lasix as patient still appears dehydrated CAD - Cardiac cath 07/2017 with mild non-intervenable disease - Continue ASA - Continue Lipitor - Trop x1 negative, f/u trop x2 more - Appreciate cardiology consult 3) Fever - WBC wnl - Afebrile - Cough with clear/white sputum - Chest X-ray with no acute pathology - UA negative, urine culture - Blood culture with NGTD - Patient with diarrhea, f/u stool studies - Will hold off on abx until source identified 4) COPD - No evidence of acute COPD exacerbation - Continue duonebs - Not on any other home medications 5) F/E/N: - Sodium controlled diet - Monitor electrolytes 6) Prophylaxis: - Heparin 5,000u sq bid - PT 7) Dispo: - Requires continued inpatient care CODE STATUS: FULL CODE Visit type - Emergency Visit Emergency Visit: Yes ED Registration Date: 08/25/17 Care time: The patient presented to the Emergency Department on the above date and was hospitalized for further evaluation of their emergent condition. - New Patient This patient is new to me today: No - Critical Care Critical Care patient: No
[2017-08-26] MEDS: SODIUM CHLORIDE 1,000 ML IV SCH (16:30)
[2017-08-26] MEDS: ACETAMINOPHEN 325 MG TABLET (FP) PO PRN (21:39)
[2017-08-27] MEDS: SODIUM CHLORIDE 1,000 ML IV SCH ×3 (05:44→23:25)
[2017-08-27 07:32] LABS: HEMOGLOBIN 9.7 GM/dL (10.7-15.3); MCH 24.7 pg (25.7-33.7); MCHC 32.2 g/dl (32.0-36.0); MEAN CELL VOLUME 76.7 fl (80-96); MEAN PLT VOLUME 9.7 fl (7.5-11.1); PLATELET COUNT 135 K/MM3 (134-434); RBC 3.91 M/mm3 (3.60-5.2); RDW 16.9 % (11.6-15.6); WHITE BLOOD COUNT 6.9 K/mm3 (4.0-10.0)
[2017-08-27 08:30] LABS: ALBUMIN 2.9 g/dl (3.4-5.0); ANION GAP 10 (8-16); BLOOD UREA NITROGEN 19 mg/dL (7-18); CALCIUM 8.1 mg/dL (8.5-10.1); CHLORIDE 113 mmol/L (98-107); CO2 20 mmol/L (21-32); GLUCOSE,RANDOM 75 mg/dL (74-106); POTASSIUM 4.2 mmol/L (3.5-5.1); SGOT/AST 50 U/L (15-37); SGPT/ALT 38 U/L (12-78); SODIUM 143 mmol/L (136-145)
[2017-08-27 08:32] LABS: ALK PHOS 59 U/L (45-117); BILIRUBIN,TOTAL 0.7 mg/dL (0.2-1.0); TOT PROT 5.9 g/dl (6.4-8.2)
[2017-08-27] MEDS ORDERED: PT OWN MED DRAWER 7, Y5N ONE (09:30)
[2017-08-27] MEDS: METOPROLOL SUCCINATE 50 MG TAB.SR.24H (FP) PO SCH (09:35)
[2017-08-27] MEDS: HEPARIN NA (PORCINE) 5,000 UNITS/ML 1ML VIAL SQ SCH ×2 (09:35→22:42)
[2017-08-27] MEDS: ASPIRIN 81 MG CHEWABLE TABLETS PO SCH (09:35)
--- NOTE | 2017-08-27 11:57 | PN ---
Progress Note (short form) - Note Progress Note: s: no cp sob palps dizzy o: Vital Signs Period Temp Pulse Resp BP Sys/Ortiz Pulse Ox Last 24 Hr 98.6 F-101.2 F 94-109 18-20 106-134/57-66 95-96 nad calm jvd not elevated, neck supple rrr s1s2 no mrg ctab nl eff aao3 no le e/c/c abd nt nd pos bs no jaundice diaphoresis Current Medications Generic Name Dose Route Start Last Admin Trade Name Freq PRN Reason Stop Dose Admin Acetaminophen 650 mg 08/26/17 20:52 08/26/17 21:39 Tylenol - PO 650 mg Q6H PRN Administration FEVER OR PAIN Albuterol/Ipratropium 1 amp 08/25/17 13:48 08/26/17 09:46 Duoneb - NEB 1 amp Q4H PRN Administration SHORTNESS OF BREATH Aspirin 81 mg 08/26/17 10:00 08/27/17 09:35 Asa - PO 81 mg DAILY DUC Administration Atorvastatin Calcium 40 mg 08/25/17 22:00 08/26/17 21:40 Lipitor - PO 40 mg HS DUC Administration Heparin Sodium (Porcine) 5,000 unit 08/25/17 22:00 08/27/17 09:35 Heparin - SQ 5,000 unit BID DUC Administration Sodium Chloride 1,000 mls @ 75 mls/hr 08/26/17 15:30 08/27/17 05:44 Normal Saline - IV 75 mls/hr ASDIR DUC Administration Metoprolol Succinate 50 mg 08/26/17 10:00 08/27/17 09:35 Toprol Xl - PO 50 mg DAILY DUC Administration CBC, BMP 08/27/17 07:10 08/27/17 07:10 EKG: sinus tach. LBBB. cxr: clear lung dubon, improved from prior. echo 07/2017 ([facility]): bline lve. lv sys fn severly reduced. severe global HK. nl rv. mild mvp. mod-sev mr. 1+ tr. echo 07/2017 ([facility]): mild lve, g1dd, lvef 29%, nl rv, sev lae, mild mr, nl rvsp stress test 07/2017: smalll-mod sized ant/anteroseptal ischemica (mild intensity ), small-mod sized base-apex inf ischemia (mild intensity). EF 23% at rest EF 24 % post stress cath 07/2017: distal disease, no pci done, left for med rx: 30-50 mrca 70-80 rpda, 70-80 av continuation. 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 EF 35% lvedp 15. a/p: 87 with h/o new diagnosis of cardiomyopathy last month, cad, lbbb, htn, copd, here with fever/infectious sx's and bhavna. chronic systolic cardiomyopathy - recent dx. s/p cath last month, see above. - currently with poor po intake and increased gi loses. weight down on most recent office visit from 137 --> 133 lbs. appears volume depleted on exam with BHAVNA, likely from diarrhea/diuretic. getting IVF and cr normal now. Upon dc resume po lasix at lower dose of 20 mg qd (was on 40 qd). -keiko cui (currently with bhavna), resume on dc cad - cath with mild non-intervenable disease. - con't asa, statin - ekg with known lbbb. - no signs acs htn: - as above. fever - per pmd.
[2017-08-27 13:36] LABS: URINE APPEARANCE CLEAR; URINE BILIRUBIN NEGATIVE (NEGATIVE); URINE BLOOD 1+ (NEGATIVE); URINE COLOR YELLOW; URINE GLUCOSE (UA) NEGATIVE (NEGATIVE); URINE KETONE TRACE (NEGATIVE); URINE LEUK ESTERASE TRACE (NEGATIVE); URINE NITRITE NEGATIVE (NEGATIVE); URINE PROTEIN NEGATIVE (NEGATIVE); URINE UROBILINOGEN NEGATIVE mg/dL (0.2-1.0)
[2017-08-27 13:52] LABS: EPI CELLS RARE /HPF (FEW); URINE MUCUS RARE
[2017-08-27] MEDS ORDERED: AZITHROMYCIN IVPB 500 MG in DEXTROSE 5%-WATER - 250 ML IVPB ONE (14:59)
[2017-08-27] MEDS ORDERED: CEFTRIAXONE 1 G/50 ML PREMIX 50 ML IVPB SCH (15:00)
--- NOTE | 2017-08-27 15:04 | PN ---
Progress Note (short form) - Note Progress Note: Subjective: The patient was seen and examined at the bedside, she reports diarrhea has improved. She denies any complaints at this time Current Medications Generic Name Dose Route Start Last Admin Trade Name Shannan PRN Reason Stop Dose Admin Acetaminophen 650 mg 08/26/17 20:52 08/26/17 21:39 Tylenol - PO 650 mg Q6H PRN Administration FEVER OR PAIN Albuterol/Ipratropium 1 amp 08/25/17 13:48 08/26/17 09:46 Duoneb - NEB 1 amp Q4H PRN Administration SHORTNESS OF BREATH Aspirin 81 mg 08/26/17 10:00 08/27/17 09:35 Asa - PO 81 mg DAILY DUC Administration Atorvastatin Calcium 40 mg 08/25/17 22:00 08/26/17 21:40 Lipitor - PO 40 mg HS DUC Administration Heparin Sodium (Porcine) 5,000 unit 08/25/17 22:00 08/27/17 09:35 Heparin - SQ 5,000 unit BID DUC Administration Sodium Chloride 1,000 mls @ 75 mls/hr 08/26/17 15:30 08/27/17 05:44 Normal Saline - IV 75 mls/hr ASDIR DUC Administration Azithromycin 500 mg/ Dextrose 250 mls @ 250 mls/hr 08/27/17 14:59 IVPB 08/27/17 15:58 ONCE ONE Ceftriaxone Sodium 1 gm/ 50 mls @ 100 mls/hr 08/27/17 15:00 Dextrose IVPB DAILY DUC Azithromycin 250 mg/ Dextrose 250 mls @ 250 mls/hr 08/28/17 16:00 IVPB DAILY@1600 DUC Metoprolol Succinate 50 mg 08/26/17 10:00 08/27/17 09:35 Toprol Xl - PO 50 mg DAILY DUC Administration Objective: Vital Signs Period Temp Pulse Resp BP Sys/Ortiz Pulse Ox Last 24 Hr 98.9 F-101.2 F 94-109 18-20 106-134/57-66 95-95 Physical Exam: GENERAL: Awake, alert, and fully oriented, in no acute distress. LUNGS: Breath sounds equal, clear to auscultation bilaterally. No wheezes, and no crackles. No accessory muscle use. HEART: Tachycardia, S1S2 ABDOMEN: Soft, nontender, not distended, normoactive bowel sounds, no guarding, no rebound, no masses. No hepatomegaly or splenomegaly. MUSCULOSKELETAL: Normal range of motion at all joints. No bony deformities or tenderness. No CVA tenderness. UPPER EXTREMITIES: 2+ pulses, warm, well-perfused. No cyanosis. No clubbing. No peripheral edema. LOWER EXTREMITIES: 2+ pulses, warm, well-perfused. No calf tenderness. No peripheral edema. CBCD WBC 6.9 K/mm3 (4.0-10.0) 08/27/17 07:10 RBC 3.91 M/mm3 (3.60-5.2) 08/27/17 07:10 Hgb 9.7 GM/dL (10.7-15.3) L 08/27/17 07:10 Hct 30.0 % (32.4-45.2) L 08/27/17 07:10 MCV 76.7 fl (80-96) L 08/27/17 07:10 MCHC 32.2 g/dl (32.0-36.0) 08/27/17 07:10 RDW 16.9 % (11.6-15.6) H 08/27/17 07:10 Plt Count 135 K/MM3 (134-434) 08/27/17 07:10 MPV 9.7 fl (7.5-11.1) 08/27/17 07:10 CMP Sodium 143 mmol/L (136-145) 08/27/17 07:10 Potassium 4.2 mmol/L (3.5-5.1) 08/27/17 07:10 Chloride 113 mmol/L (98-107) H 08/27/17 07:10 Carbon Dioxide 20 mmol/L (21-32) L 08/27/17 07:10 Anion Gap 10 (8-16) 08/27/17 07:10 BUN 19 mg/dL (7-18) H D 08/27/17 07:10 Creatinine 1.0 mg/dL (0.55-1.02) D 08/27/17 07:10 Creat Clearance w eGFR 52.57 (>60) 08/27/17 07:10 Random Glucose 75 mg/dL (74-106) 08/27/17 07:10 Calcium 8.1 mg/dL (8.5-10.1) L 08/27/17 07:10 Total Bilirubin 0.7 mg/dL (0.2-1.0) 08/27/17 07:10 AST 50 U/L (15-37) H 08/27/17 07:10 ALT 38 U/L (12-78) 08/27/17 07:10 Alkaline Phosphatase 59 U/L (45-117) 08/27/17 07:10 Total Protein 5.9 g/dl (6.4-8.2) L 08/27/17 07:10 Albumin 2.9 g/dl (3.4-5.0) L 08/27/17 07:10 CARDIAC ENZYMES Creatine Kinase 215 IU/L (26-192) H 08/25/17 20:45 Troponin I 0.02 ng/ml (0.00-0.05) 08/25/17 20:45 Microbiology 08/25/17 11:30 Blood - Peripheral Venous Blood Culture - Preliminary NO GROWTH OBTAINED AFTER 48 HOURS, INCUBATION TO CONTINUE FOR 3 DAYS. 08/25/17 11:21 Blood - Peripheral Venous Blood Culture - Preliminary NO GROWTH OBTAINED AFTER 48 HOURS, INCUBATION TO CONTINUE FOR 3 DAYS. 08/25/17 15:40 Urine - Urine Clean Catch Urine Culture - Final NO GROWTH OBTAINED 08/25/17 17:35 Nasopharyngeal Swab Influenza Types A,B Antigen (FRANCESCA) - Final 08/25/17 17:35 Nasopharyngeal Swab - Final Assessment: This is an 87 year old female with PMHx of HTN, COPD, systolic heart failure, recent cardiac cath at [facility] 07/2017, who presented to the ED with increased dizziness, weakness, loss of appetite, low blood pressure. Plan: 1) BHAVNA on CKD - Resolved - Likely 2/2 dehydration from diarrhea and lasix use - Continue to hold lasix - Encourage po hydration 2) Chronic systolic cardiomyopathy - Hold Lasix as patient still appears dehydrated CAD - Cardiac cath 07/2017 with mild non-intervenable disease - Continue ASA - Continue Lipitor - Trop x1 negative, f/u trop x2 more - Appreciate cardiology consult 3) CAP - Chest X-ray today with RLL infiltrate - Start Azithromycin and Ceftriaxone - Monitor for fever - F/u urine legionella ag Diarrhea? - Patient reports diarrhea, but when RN went to collect it for samples she states it was only urine - F/u stool studies 4) COPD - No evidence of acute COPD exacerbation - Continue duonebs - Not on any other home medications 5) F/E/N: - Sodium controlled diet - Monitor electrolytes 6) Prophylaxis: - Heparin 5,000u sq bid - PT 7) Dispo: - Requires continued inpatient care CODE STATUS: FULL CODE Visit type - Emergency Visit Emergency Visit: Yes ED Registration Date: 08/25/17 Care time: The patient presented to the Emergency Department on the above date and was hospitalized for further evaluation of their emergent condition. - New Patient This patient is new to me today: No - Critical Care Critical Care patient: No
[2017-08-27] MEDS: CEFTRIAXONE 1 G/50 ML PREMIX 50 ML IVPB SCH (19:58)
[2017-08-27] MEDS: ATORVASTATIN CA 40 MG TABLET (FP) PO SCH (22:42)
[2017-08-28] MEDS: ACETAMINOPHEN 325 MG TABLET (FP) PO PRN (02:29)
[2017-08-28 07:31] LABS: HEMATOCRIT 29.5 % (32.4-45.2); HEMOGLOBIN 9.4 GM/dL (10.7-15.3); MCH 24.6 pg (25.7-33.7); MCHC 31.8 g/dl (32.0-36.0); MEAN CELL VOLUME 77.2 fl (80-96); PLATELET COUNT 139 K/MM3 (134-434); RBC 3.82 M/mm3 (3.60-5.2); RDW 16.9 % (11.6-15.6); WHITE BLOOD COUNT 6.3 K/mm3 (4.0-10.0)
[2017-08-28 08:01] LABS: ALBUMIN 2.5 g/dl (3.4-5.0); ANION GAP 8 (8-16); BILIRUBIN,TOTAL 0.6 mg/dL (0.2-1.0); BLOOD UREA NITROGEN 12 mg/dL (7-18); CALCIUM 7.7 mg/dL (8.5-10.1); CHLORIDE 114 mmol/L (98-107); CO2 21 mmol/L (21-32); CREATININE 0.8 mg/dL (0.55-1.02); GLUCOSE,RANDOM 73 mg/dL (74-106); POTASSIUM 3.8 mmol/L (3.5-5.1); SGOT/AST 60 U/L (15-37); SGPT/ALT 53 U/L (12-78); SODIUM 143 mmol/L (136-145); TOT PROT 5.6 g/dl (6.4-8.2)
[2017-08-28 08:02] LABS: ALK PHOS 60 U/L (45-117)
[2017-08-28] MEDS: CEFTRIAXONE 1 G/50 ML PREMIX 50 ML IVPB SCH (09:40)
[2017-08-28] MEDS: ASPIRIN 81 MG CHEWABLE TABLETS PO SCH (09:40)
[2017-08-28] MEDS: METOPROLOL SUCCINATE 50 MG TAB.SR.24H (FP) PO SCH (09:41)
[2017-08-28] MEDS: HEPARIN NA (PORCINE) 5,000 UNITS/ML 1ML VIAL SQ SCH ×2 (09:41→22:07)
--- NOTE | 2017-08-28 12:05 | PN ---
Physical Exam: SUBJECTIVE: Patient seen and examined. Wants to know what's going on with "all this nonsense." Explained she has fever and pneumonia. She does not complain of chest pain or SOB. OBJECTIVE: Vital Signs Period Temp Pulse Resp BP Sys/Ortiz Pulse Ox Last 24 Hr 98.8 F-101.1 F 84-108 18- 102-126/46-72 95 GENERAL: The patient is awake, alert, and fully oriented, in no acu NECK: Trachea midline, full range of motion, supple. LUNGS: Diminished right base; crackles and rhonchi left base HEART: Regular rate and rhythm, S1, S2 without murmur, rub or gallop. ABDOMEN: Soft, nontender, nondistended, normoactive bowel sounds, no guarding, no rebound EXTREMITIES: 2+ pulses, warm, well-perfused, no edema. NEUROLOGICAL: Cranial nerves II through XII grossly intact. Normal speech, gait not observed. Laboratory Results - last 24 hr 08/27/17 08/28/17 08/28/17 13:04 07:00 07:00 WBC 6.3 RBC 3.82 Hgb 9.4 L Hct 29.5 L MCV 77.2 L MCH 24.6 L MCHC 31.8 L RDW 16.9 H Plt Count 139 MPV 10.0 Sodium 143 Potassium 3.8 Chloride 114 H Carbon Dioxide 21 Anion Gap 8 BUN 12 D Creatinine 0.8 Creat Clearance w eGFR > 60 Random Glucose 73 L Calcium 7.7 L Total Bilirubin 0.6 AST 60 H ALT 53 D Alkaline Phosphatase 60 Total Protein 5.6 L Albumin 2.5 L Urine Color Yellow Urine Appearance Clear Urine pH 5.0 Ur Specific [place] 1.019 Urine Protein Negative Urine Glucose (UA) Negative Urine Ketones Trace H Urine Blood 1+ H Urine Nitrite Negative Urine Bilirubin Negative Urine Urobilinogen Negative Ur Leukocyte Esterase Negative Urine WBC (Auto) 5 Urine RBC (Auto) 2 Ur Epithelial Cells Rare Urine Mucus Rare Active Medications Generic Name Dose Route Start Last Admin Trade Name Freq PRN Reason Stop Dose Admin Acetaminophen 650 mg 08/26/17 20:52 08/28/17 02:29 Tylenol - PO 650 mg Q6H PRN Administration FEVER OR PAIN Albuterol/Ipratropium 1 amp 08/25/17 13:48 08/26/17 09:46 Duoneb - NEB 1 amp Q4H PRN Administration SHORTNESS OF BREATH Aspirin 81 mg 08/26/17 10:00 08/28/17 09:40 Asa - PO 81 mg DAILY DUC Administration Atorvastatin Calcium 40 mg 08/25/17 22:00 08/27/17 22:42 Lipitor - PO 40 mg HS DUC Administration Heparin Sodium (Porcine) 5,000 unit 08/25/17 22:00 08/28/17 09:41 Heparin - SQ 5,000 unit BID DUC Administration Sodium Chloride 1,000 mls @ 75 mls/hr 08/26/17 15:30 08/27/17 23:25 Normal Saline - IV 75 mls/hr ASDIR DUC Administration Azithromycin 250 mg/ Dextrose 250 mls @ 250 mls/hr 08/28/17 16:00 IVPB DAILY@1600 DUC CEFTRIAXONE 1 G/50 ML PREMIX 50 mls @ 100 mls/hr 08/27/17 19:00 08/28/17 09: 40 Ceftriaxone 1 Gm-D5w Bag IVPB 100 mls/hr DAILY DUC Administration Metoprolol Succinate 50 mg 08/26/17 10:00 08/28/17 09:41 Toprol Xl - PO 50 mg DAILY DUC Administration ASSESSMENT/PLAN 87 year-old female with PMH significant for HTN, systolic heart failure, cardiac cath at [facility] 07/2017, and COPD. Admitted with complaint of fever, weakness, frequent urination, diarrhea, and reported low blood pressure. Pneumonia --continues to spike fevers to 101.1, no leukocytosis --08/27 CXR: right base infiltrate --continue ceftriaxone (day #2) and azithromycin (day #2) BHAVNA, resolved --Cr 1.9 on admission, 0.8 today --likely secondary to lasix and diarrhea --no witnessed episodes of diarrhea; continue to hold Lasix and home Benicar Systolic heart failure --Echo 07/2017 ([facility]): mild lve, g1dd, lvef 29%, nl rv, severe lae, mild mr, nl rvsp --was started on Lasix in July at [facility] and was volume depleted on admission; weight down 4 lbs --renal function has returned to baseline and hemodynamically stable --stop IV fliuds; continue to hold Lasix, reassess tomorrow Coronary artery disease --Cardiac cath 07/2017: distal disease, no pci done; 30-50 mrca; 70-80 rpda ; 70-80 av continuation; EF 35% --being medically managed --continue Toprol XL, Lipitor, ASA Hypertension --BP well-controlled --continue Toprol XL; hold Benicar due to BHAVNA COPD --stable --continue duonebs FEN Fluids: PO intake adequate Electrolytes: replete as indicated Nutrition: low sodium DVT prophylaxis --subq heparin, oob, ambulation Physical therapy evaluation Dispo: continues to require inpatient care. Full code. Visit type - Emergency Visit Emergency Visit: Yes ED Registration Date: 08/25/17 Care time: The patient presented to the Emergency Department on the above date and was hospitalized for further evaluation of their emergent condition. - New Patient This patient is new to me today: Yes Date on this admission: 08/28/17 - Critical Care Critical Care patient: No
--- NOTE | 2017-08-28 12:51 | PN ---
Progress Note, Physician Chief Complaint: diarrhea, vol depletion History of Present Illness: no sob, orthopnea, cp, palpit, leg swelling - Current Medication List Current Medications: Active Medications Acetaminophen (Tylenol -) 650 mg PO Q6H PRN PRN Reason: FEVER OR PAIN Last Admin: 08/28/17 02:29 Dose: 650 mg Albuterol/Ipratropium (Duoneb -) 1 amp NEB Q4H PRN PRN Reason: SHORTNESS OF BREATH Last Admin: 08/26/17 09:46 Dose: 1 amp Aspirin (Asa -) 81 mg PO DAILY [facility] Last Admin: 08/28/17 09:40 Dose: 81 mg Atorvastatin Calcium (Lipitor -) 40 mg PO HS [facility] Last Admin: 08/27/17 22:42 Dose: 40 mg Heparin Sodium (Porcine) (Heparin -) 5,000 unit SQ BID [facility] Last Admin: 08/28/17 09:41 Dose: 5,000 unit Sodium Chloride (Normal Saline -) 1,000 mls @ 75 mls/hr IV ASDIR [facility] Last Admin: 08/27/17 23:25 Dose: 75 mls/hr Azithromycin 250 mg/ Dextrose 250 mls @ 250 mls/hr IVPB DAILY@1600 [facility] CEFTRIAXONE 1 G/50 ML PREMIX (Ceftriaxone 1 Gm-D5w Bag) 50 mls @ 100 mls/hr IVPB DAILY [facility] Last Admin: 08/28/17 09:40 Dose: 100 mls/hr Metoprolol Succinate (Toprol Xl -) 50 mg PO DAILY [facility] Last Admin: 08/28/17 09:41 Dose: 50 mg - Objective Vital Signs: Vital Signs Temperature 98.8 F 08/28/17 05:33 Pulse Rate 104 H 08/28/17 09:30 Respiratory Rate 18 08/28/17 09:30 Blood Pressure 126/58 08/28/17 09:30 O2 Sat by Pulse Oximetry (%) 95 08/27/17 21:00 Constitutional: Yes: Well Nourished, No Distress, Calm Cardiovascular: Yes: Regular Rate and Rhythm, JVD (probable), S1, S2. No: Gallop, Murmur Respiratory: Yes: Regular, CTA Bilaterally. No: Accessory Muscle Use, Rales, Wheezes Extremities: No: Cold Edema: No Neurological: Yes: Alert, Oriented Psychiatric: No: Agitated Labs: CBC, BMP 08/28/17 07:00 08/28/17 07:00 INR, PTT INR 1.02 (0.82-1.09) 08/25/17 11:27 Assessment/Plan cxr: clear lung dubon, improved from prior. echo 07/[facility] bline lve. lv sys fn severly reduced. severe global HK. nl rv. mild mvp. mod-sev mr. 1+ tr. echo 07/2017 ([facility]): mild lve, g1dd, lvef 29%, nl rv, sev lae, mild mr, nl rvsp stress test 07/2017: smalll-mod sized ant/anteroseptal ischemica (mild intensity ), small-mod sized base-[place] inf ischemia (mild intensity). EF 23% at rest EF 24 % post stress cath 07/2017: distal disease, no pci done, left for med rx: 30-50 mrca 70-80 rpda, 70-80 av continuation. 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 EF 35% lvedp 15. a/p: 87 with h/o new diagnosis of cardiomyopathy last month, cad, lbbb, htn, copd, here with fever/infectious sx's and bhavna. chronic systolic chf: - recent dx. s/p cath last month, see above. - currently with poor po intake and increased gi loses. weight down from last office visit from 137 --> 133 lbs. appeared volume depleted on initial exam here with BHAVNA, - has received IVF here, bun/creat normalized. - JVD suspected on exam today, pt with no sob sx's or periph edema. - will stop IVF - plan to resume po lasix in 1-2 days if creat stable and taking good po (will rx lower dose of 20 mg qd (was on 40 qd prior)). - cont home metopr as doing - resume prior ARB (benicar 20 qd on discharge--not on formulary here) cad - cath with mild non-intervenable, non-critical disease. - con't asa, statin - ekg with known lbbb. - no signs acs htn: - stable - same med plan as above fever - per pmd.
[2017-08-28] MEDS: AZITHROMYCIN IVPB 250 MG in DEXTROSE 5%-WATER - 250 ML IVPB SCH (15:01)
[2017-08-28] MEDS ORDERED: ALBUTEROL SO4 2.5/IPRATROPIUM 0.5 INH SOL 3 ML VIAL.NEB. NEB STA (16:33)
[2017-08-28] MEDS: ALBUTEROL SO4 2.5/IPRATROPIUM 0.5 INH SOL 3 ML VIAL.NEB. NEB PRN (16:37)
[2017-08-28] MEDS ORDERED: ALBUTEROL SO4 2.5/IPRATROPIUM 0.5 INH SOL 3 ML VIAL.NEB. NEB SCH (16:45)
[2017-08-28] MEDS ORDERED: FUROSEMIDE 40 MG/4 ML INJECTABLE VIAL IVPUSH ONE ×3 (18:27→19:24)
[2017-08-28] MEDS ORDERED: NITROGLYCERIN 2% OINTMENT - 1GM PACKET TD ONE (18:30)
[2017-08-28] MEDS ORDERED: METOPROLOL TARTRATE 5 MG/5 ML VIAL IVPUSH STA (18:38)
[2017-08-28] MEDS ORDERED: NITROGLYCERIN SUBLINGUAL 1/150 0.4 MG TAB ONE (18:49)
[2017-08-28 18:55] LABS: ARTERIAL BLOOD GAS BASE EXCESS -14.1 meq/l (-2-2); ARTERIAL BLOOD GAS pH 7.22 (7.35-7.45)
[2017-08-28 18:56] LABS: ARTERIAL BLD GAS O2 SATURATION 82.6 % (90-98.9); ARTERIAL BLOOD GAS PCO2 30.5 mmHg (35-45); ARTERIAL BLOOD GAS PO2 59.4 mmHg (68-100)
[2017-08-28] MEDS ORDERED: METOPROLOL TARTRATE 5 MG/5 ML VIAL ONE (19:16)
[2017-08-28 19:33] LABS: ARTERIAL BLD GAS O2 SATURATION 94.3 % (90-98.9); ARTERIAL BLOOD GAS BASE EXCESS -11.3 meq/l (-2-2); ARTERIAL BLOOD GAS PCO2 25.9 mmHg (35-45); ARTERIAL BLOOD GAS PO2 79.7 mmHg (68-100); ARTERIAL BLOOD GAS pH 7.33 (7.35-7.45)
[2017-08-28 19:34] LABS: ALLENS TEST POSITIVE
[2017-08-28] MEDS ORDERED: PROPOFOL 200 MG/20 ML VIAL IVPUSH ONE (19:47)
[2017-08-28] MEDS ORDERED: MIDAZOLAM 100 MG in SODIUM CHLORIDE 100 ML IVPB PRN (20:00)
--- NOTE | 2017-08-28 20:13 | RAPID ---
Physical Examination Vital Signs: Responded to rapid response at 6:20pm. Remained with the patient until 8:30pm. Patient found seated next to bed in moderate distress secondary to SOB, tachypnea, tachycardia. Vital signs: BP 150/106, RR 50s, HR 150s, SpO2 94% on NRB 100% Physical Exam Neuro: A&Ox 3 CV: Tachycardic, RRR Pulm: Tachypnic, coarse breath sounds bilaterally Abd: soft, not tender Ext: warm, well-perfused, no edema ECG: sinus tach @ 157bpm CXR: bilateral pulmonary edema Initial ABG 7.22/30/59/12/82% on NRB 100% Lasix IV 120mg total given with only 45 cc's UOP in bauman Nitro drip started with improvement in HR to 120s, BP 140s Metoprolol 5mg IVP x 1 BiPAP started: ABG 7.33/25.9/79/13/94% BiPAP 100% Transferred to ICU; en route, BiPAP d/c'd because equipment does not fit in transport elevator; patient quickly decompensated, severely SOB, ambu-bagged Decision to intubate Post-extubation gas: 7.35/32/299/17/99% on AC Fio2 100% ASSESSMENT Acute respiratory failure --likely multifactorial: acute exacerbation of systolic heart failure, and RLL pneumonia --discussed with Dr. Sharma; plan is to give additional Lasix IVP 80mg x 1 if repeat Cr is < or = to 1.5; if greater, hold Lasix tonight Critical Care Total Critical Care Time (in minutes): 120 Critical Care Statement: The care of this patient involved high complexity decision making to prevent further life threatening deterioration of the patient 's condition and/or to evaluate & treat vital organ system(s) failure or risk of failure.
--- NOTE | 2017-08-28 20:15 | PN ---
Progress Note (short form) - Note Progress Note: Anesthesia intubation note Called stat to the floor. Pat awake, responsive,sudden respiratory distress. RR> 30, BP: 135/80 HR:135 SpO2:87 Nitro sublingual and nitro drip started. Lasix given. On BIPAP. Improved VSS. SpO2:98%. Transported to ICU. BIPAP disconnected durring transport, worsened SpO2, and tachypnea. Responsive and agreed on intubation. Intubated in ICU. Midazolam 5 mg, Fentanyl:100 mcg Etomidate:10 mg Succinylcholine:80 mg. EZ intubation. VSS.Sedation started. C-XRAY post intubation.
[2017-08-28 20:24] LABS: BASO % 0.4 % (0-2.0); HEMATOCRIT 31.3 % (32.4-45.2); HEMOGLOBIN 9.9 GM/dL (10.7-15.3); LYMPH % 8.3 % (8-40); MCH 24.8 pg (25.7-33.7); MCHC 31.7 g/dl (32.0-36.0); MEAN CELL VOLUME 78.1 fl (80-96); MEAN PLT VOLUME 10.7 fl (7.5-11.1); MONO % 3.9 % (3.8-10.2); NEUT % 86.4 % (42.8-82.8); PLATELET COUNT 181 K/MM3 (134-434); RDW 17.2 % (11.6-15.6); WHITE BLOOD COUNT 12.9 K/mm3 (4.0-10.0)
[2017-08-28 20:41] LABS: ALBUMIN 2.5 g/dl (3.4-5.0); ANION GAP 14 (8-16); BILIRUBIN,TOTAL 0.4 mg/dL (0.2-1.0); BLOOD UREA NITROGEN 12 mg/dL (7-18); CALCIUM 7.3 mg/dL (8.5-10.1); CHLORIDE 111 mmol/L (98-107); CO2 14 mmol/L (21-32); CREATININE 1.4 mg/dL (0.55-1.02); GLUCOSE,RANDOM 282 mg/dL (74-106); MAGNESIUM 2.2 mg/dL (1.8-2.4); SGOT/AST 109 U/L (15-37); SGPT/ALT 86 U/L (12-78); SODIUM 139 mmol/L (136-145); TOT PROT 6.1 g/dl (6.4-8.2)
[2017-08-28 20:43] LABS: ALK PHOS 83 U/L (45-117)
[2017-08-28 21:18] LABS: ARTERIAL BLD GAS O2 SATURATION 99.6 % (90-98.9); ARTERIAL BLOOD GAS BASE EXCESS -7.1 meq/l (-2-2); ARTERIAL BLOOD GAS PCO2 32.5 mmHg (35-45); ARTERIAL BLOOD GAS pH 7.35 (7.35-7.45)
[2017-08-28 21:20] LABS: ALLENS TEST POSITIVE
--- NOTE | 2017-08-28 21:21 | CONSULT ---
Consult Consult Specialty:: pulmonary critical care Referred by:: faviola simmons Reason for Consultation:: respiratory failure - History of Present Illness Chief Complaint: fever History of Present Illness: This is an 87 yo female w/ h/o newly diagnosed cardiomyopathy in July, CAD, LBBB, HTN, COPD presented to ED on 08/25 w/ c/o fever (tmax 102F) and productive cough and sore throat x 1 month with worsening weakness and poor PO intake x2 days with c/o epigastric pain, diarrhea, chills and dizziness on presenting day. Pt received flu shot this year and pneumovac x 1yr ago. Of note , pt was recently discharged from [facility] in July s/p cardiac cath w/ medical management of her obstructive CAD, but c/o worsening JEAN since. Denied CP, palpitations, orthopnea and LE edema. Pt's son called her Word Processing Operator, Dr. Boyd and was advised to stop her lasix. BP taken at home with SBP in 70s. Weight was also noted to be down on most recent office visit from 137 --> 133 lbs. In the ED pt was noted to be tachycardic in 120s, BP 120/50s w/ SOB sat'ing 97% on RA, and temp 100.9. CXR was clear with cardiomegaly. Labs remarkable were: BNP 5654, WBC 9.3, creat 1.9 (last adm creat 1.3). She was transferred to the floor for further management. On the floor, pt appeared volume depleted on exam in the setting of BHAVNA and was being treated with gentle IVF and lasix was held. Abx not started until 08/27 on ceftriaxone and azithromycin when CXR showed RLL infiltrate and continued to have temps tmax'ing at 101. Cultures to date are negative. Today, creat normalized, but JVD found on exam, without peripheral edema. IVF was held with initial plans to restart lasix in 1-2 days. However, an FIRE CAPTAIN was called this evening when she went into an acute respiratory distress. Found to be tachypneic in the 30s, tachycardic 130-150s, hypertensive with worsening O2 sats. She was placed on NRB--> biPAP with minimal improvement after Lasix 120mg IVP x1 given. Nitro gtt started. Pt thought o have had flash pulmonary edema. As per nurse, she was having worsening SOB with OOB to bathroom. Anesthesia called for intubation after no improvement in condition. Pt remained awake and responsive and consented to intubation. She was given Midazolam 5 mg, Fentanyl:100 mcg Etomidate:10 mg Succinylcholine:80 mg. Intubation was uncomplicated. VSS. Started on versed gtt and transferred to ICU for further management. CXR consistent with pulm edema. Upon arrival to ICU, pt was transitioned from versed to propofol gtt and additional lasix 80mgx1 IVP given, and Vancomycin 1g IVPB, Vent adjusted. Tachycardia resolved. BPs 80-90s/50-60 after lasix. Labs pending. 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: No: Alzheimer's, CVA, Dementia, Migraine, Multiple Sclerosis, Peripheral Neuropathy, Parkinson's, Seizure, Syncope, TIA, Vertigo, Other Cardio/Vascular: Yes: CAD, CHF, HTN Pulmonary: Yes: COPD Gastrointestinal: No: Ascites, Cancer, Constipation, Crohn's Disease, Diverticulitis, Diverticulosis, Esophageal Varices, Gastritis, GERD, GI Bleed, Hemorrhoids, Hiatal Hernia, Inflamatory Bowel Disease, Irritable Bowel Disease, Pancreatitis, Peptic Ulcer Disease, Ulcerative Colitis, Other Hepatobiliary: No: Cirrhosis, Cholelithiasis, Cholecystitis, Choledocholithiasis , Hepatitis A, Hepatitis B, Hepatitis C, Other Renal/: No: Renal Failure, Renal Inusuff, BPH, Cancer, Hematuria, Hemodialysis , Neurogenic Bladder, Renal Calculi, UTI, Other Reproductive: No: Ectopic , Endometriosis, Fibroids, PID, Polycystic Ovary Syndrome, Postmenopausal, Other ...: No Heme/Onc: No: Anemia, B12 Deficiency, Bleeding Disorder, Cancer, Current Chemotherapy, Current Radiation Therapy, Hemochromatosis, Hypercoaguable State, Myeloproliferative Synd, Sickle Cell Disease, Sickle Cell Trait, Thrombocytopenia, Other Infectious Disease: No: AIDS, C-Diff, Herpes Zoster, HIV, MRSA, STD's, Tuberculosis, VREF, Other Psych: No: Addictions, Anxiety, Bipolar, Depression, Panic, Psychosis, Schizophrenia, Other Rheumatology: No: Fibromyalgia, Gout, Lupus, Rheumatoid Arthritis, Sarcoidosis, Vasculitis, Other ENT: No: Allergic Rhinitis, Sinusitis, Other Dermatology: No: Basal Cell, Cellulitis, Eczema, Melanoma, Psoriasis, Squamous Cell, Other - Past Surgical History Additional Surgical History: Thyroidectomy - Alcohol/Substance Use Hx Alcohol Use: Yes (1 glass of wine a week) History of Substance Use: reports: None - Smoking History Smoking history: Never smoked Have you smoked in the past 12 months: No Aproximately how many cigarettes per day: 0 - Social History ADL: Independent Occupation: retired [employer] History of Recent Travel: No Home Medications - Allergies Allergies/Adverse Reactions: Allergies Allergy/AdvReac Type Severity Reaction Status Date / Time No Known Allergies Allergy Verified 08/25/17 10:56 - Home Medications Home Medications: Ambulatory Orders Albuterol Sulfate Inhaler - [Ventolin HFA Inhaler -] 2 inh PO Q6H 07/18/17 Metoprolol Succinate [Toprol Xl] 50 mg PO DAILY 07/18/17 Albuterol 2.5/Ipratropium 0.5 [Duoneb -] 1 amp NEB Q4H PRN amp 07/21/17 Aspirin [ASA -] 81 mg PO DAILY tab.chew 07/21/17 Atorvastatin Ca [Lipitor] 40 mg PO HS #30 tablet 07/21/17 Furosemide [Lasix -] 40 mg PO DAILY tablet 07/21/17 Folic Acid 1 mg PO DAILY 08/25/17 Review of Systems - Review of Systems Constitutional: reports: Chills, Fever, Loss of Appetite, Unintentional Wgt. Loss, Weakness Eyes: reports: No Symptoms HENT: reports: Throat Pain Neck: reports: No Symptoms Cardiovascular: reports: Shortness of Breath. denies: Chest Pain, Edema, Palpitations Respiratory: reports: Cough, SOB, SOB on Exertion. denies: Orthopnea, Wheezing Gastrointestinal: reports: Other (epigastric discomfort) Genitourinary: reports: Frequency Breasts: reports: No Symptoms Reported Musculoskeletal: reports: No Symptoms Integumentary: reports: No Symptoms Neurological: reports: No Symptoms Endocrine: reports: Unexplained Weight Loss Hematology/Lymphatic: reports: No Symptoms Psychiatric: reports: No Symptoms Pain Intensity: 0 Physical Exam Vital Signs: Vital Signs Temperature 98.7 F 08/28/17 16:30 Pulse Rate 110 H 08/28/17 20:35 Respiratory Rate 18 08/28/17 20:35 Blood Pressure 85/55 08/28/17 20:35 O2 Sat by Pulse Oximetry (%) 94 L 08/28/17 09:00 Constitutional: Yes: Mild Distress (propofol drip started) Eyes: Yes: WNL HENT: Yes: WNL Neck: Yes: WNL Cardiovascular: Yes: Tachycardia, JVD. No: Gallop, Rub Respiratory: Yes: Intubated, Mechanically Ventilated, Rales, Rhonchi Gastrointestinal: Yes: Normal Bowel Sounds, Soft ...Rectal Exam: Yes: WNL Renal/: Yes: Calderon Present, Oliguria Breast(s): Yes: WNL Musculoskeletal: Yes: WNL Extremities: Yes: WNL Edema: No Peripheral Pulses WNL: Yes Integumentary: Yes: WNL Neurological: Yes: Unresponsive (sedated on drip) Psychiatric: Yes: Other (RASS -1) Labs: CBC, BMP 08/28/17 19:45 08/28/17 19:45 Imaging - Results Chest X-ray: Image Reviewed (pulm edema, RLL infiltrate) EKG: Image Reviewed (tacyhcardia, LBBB, no ST changes) Problem List - Problems (1) Acute kidney injury Code(s): N17.9 - ACUTE KIDNEY FAILURE, UNSPECIFIED (2) CHF (congestive heart failure) Code(s): I50.9 - HEART FAILURE, UNSPECIFIED Qualifiers: Congestive heart failure type: unspecified congestive heart failure type Congestive heart failure chronicity: unspecified congestive heart failure chronicity Qualified Code(s): I50.9 - Heart failure, unspecified (3) Dyspnea due to congestive heart failure Code(s): I50.9 - HEART FAILURE, UNSPECIFIED (4) Respiratory failure requiring intubation Code(s): J96.90 - RESPIRATORY FAILURE, UNSP, UNSP W HYPOXIA OR HYPERCAPNIA Assessment/Plan This is an 87 yo female w/ h/o newly diagnosed cardiomyopathy, CAD, LBBB, HTN, COPD presented to ED on 08/25 w/ c/o fever and cough started on abx and IVFs who subsequently went into a flash pulm edema and resp failure req'ing intubation and transfer to ICU for further care. Pulm/ID: Acute resp failure in the setting of URI s/s CXR w/ RLL infiltrate, but worsening SOB and flash pulm edema eventually req'ing intubation for increased WOB. Most likely 2/2 flash pulm edema in the setting of cardiomyopathy , JEAN, and fluid overload +/- HAP given recent fevers, infiltrate, and hospitalization. - cont propofol gtt for vent synchrony - cont azithro - cont ceftriaxone - add vancomycin 1g IVPB for broad spec coverage in the setting of recent hospitalization and worsened resp status - f/u resp cx and viral panel - nebs PRN - vent wean as tolerated - f/u abg - CXR in AM - trend lactate (1.9-->4.4 after FIRE CAPTAIN event) CV: Acute decompensated heart failure in the setting of h/o cardiomyopathy and CAD; inital BNp elevated, most recent echo EF 20-30%. - BNP - EKG in AM - echo - lasix 80 mg x1 IVP given : BHAVNA in the setting of creat bump from baseline. Most likely 2/2 pre-renal +/ - poor forward flow given poor po intake (initially) and now decompensated HF in the setting of fluid overload. - strict I&O - f/u lactate - f/u creat
[2017-08-28 21:23] LABS: ALBUMIN 2.5 g/dl (3.4-5.0); ALK PHOS 86 U/L (45-117); BILIRUBIN,DIRECT < 0.2 mg/dL (0.0-0.2); BILIRUBIN,TOTAL 0.4 mg/dL (0.2-1.0); SGOT/AST 116 U/L (15-37); SGPT/ALT 86 U/L (12-78)
[2017-08-28] MEDS ORDERED: VANCOMYCIN 1,000 MG VIAL (RESTRICTED TO ID ONLY) IVPB ONE (21:28)
[2017-08-28] MEDS ORDERED: VANCOMYCIN 1,000 MG in DEXTROSE 5%-WATER - 250 ML IVPB ONE (22:00)
[2017-08-28] MEDS: ATORVASTATIN CA 40 MG TABLET (FP) PO SCH (22:07)
[2017-08-28] MEDS ORDERED: PROPOFOL 1,000,000 MCG/100 ML VIAL IVPB SCH (22:30)
[2017-08-28] MEDS ORDERED: FUROSEMIDE 100 MG/10 ML INJECTABLE VIAL IVPB STA (23:58)
[2017-08-29] MEDS: ALBUTEROL SO4 2.5/IPRATROPIUM 0.5 INH SOL 3 ML VIAL.NEB. NEB SCH ×4 (00:46→18:10)
[2017-08-29 04:22] LABS: ARTERIAL BLD GAS O2 SATURATION 98.8 % (90-98.9); ARTERIAL BLOOD GAS BASE EXCESS -3.5 meq/l (-2-2); ARTERIAL BLOOD GAS PCO2 28.8 mmHg (35-45); ARTERIAL BLOOD GAS pH 7.44 (7.35-7.45)
[2017-08-29 04:27] LABS: ALLENS TEST POSITIVE
[2017-08-29 06:24] LABS: HEMATOCRIT 30.1 % (32.4-45.2); HEMOGLOBIN 9.6 GM/dL (10.7-15.3); MCH 24.8 pg (25.7-33.7); MCHC 31.9 g/dl (32.0-36.0); MEAN CELL VOLUME 77.7 fl (80-96); PLATELET COUNT 161 K/MM3 (134-434); RBC 3.87 M/mm3 (3.60-5.2); RDW 16.9 % (11.6-15.6); WHITE BLOOD COUNT 8.5 K/mm3 (4.0-10.0)
[2017-08-29 06:56] LABS: CHLORIDE 109 mmol/L (98-107); POTASSIUM 4.2 mmol/L (3.5-5.1); SODIUM 140 mmol/L (136-145)
[2017-08-29 07:05] LABS: ALBUMIN 2.5 g/dl (3.4-5.0); ALK PHOS 79 U/L (45-117); ANION GAP 10 (8-16); BILIRUBIN,TOTAL 0.5 mg/dL (0.2-1.0); BLOOD UREA NITROGEN 12 mg/dL (7-18); CALCIUM 7.6 mg/dL (8.5-10.1); CO2 21 mmol/L (21-32); CREATININE 1.3 mg/dL (0.55-1.02); GLUCOSE,RANDOM 107 mg/dL (74-106); MAGNESIUM 2.4 mg/dL (1.8-2.4); N-TERMINAL BNP 16299.53 pg/ml (5-450); SGOT/AST 71 U/L (15-37); SGPT/ALT 77 U/L (12-78)
[2017-08-29 07:54] LABS: ARTERIAL BLD GAS O2 SATURATION 97.7 % (90-98.9); ARTERIAL BLOOD GAS BASE EXCESS -3.3 meq/l (-2-2); ARTERIAL BLOOD GAS PCO2 29.1 mmHg (35-45); ARTERIAL BLOOD GAS pH 7.44 (7.35-7.45)
[2017-08-29 08:01] LABS: ALLENS TEST POSITIVE
--- NOTE | 2017-08-29 08:41 | PN ---
Physical Exam: SUBJECTIVE: Patient seen and examined at bedside in ICU. Extubated on venti mask. OBJECTIVE: Vital Signs Period Temp Pulse Resp BP Sys/Ortiz Pulse Ox Last 24 Hr 97.5 F-98.7 F 85-162 14-40 85-167/50-107 94-99 GENERAL: The patient is sleeping but easily arousable. No acute distress. LUNGS: Anterior coarse breath sounds; no wheezing or rhonchi; no accessory muscle use HEART: Regular rate and rhythm, S1, S2 without murmur, rub or gallop. ABDOMEN: Soft, nontender, nondistended, normoactive bowel sounds, no guarding, no rebound EXTREMITIES: 2+ pulses, warm, well-perfused, no edema. NEUROLOGICAL: Cranial nerves II through XII grossly intact. Laboratory Results - last 24 hr 08/28/17 08/28/17 08/28/17 18:45 19:24 19:45 WBC RBC Hgb Hct MCV MCH MCHC RDW Plt Count MPV Neutrophils % Lymphocytes % Monocytes % Eosinophils % Basophils % Anticoagulation Therapy Puncture Site Right radial Left radial ABG pH 7.22 L* 7.33 L ABG pCO2 at Pt Temp 30.5 L 25.9 L ABG pO2 at Pt Temp 59.4 L 79.7 D ABG HCO3 12.2 L* 13.1 L* ABG O2 Sat (Measured) 82.6 L 94.3 ABG O2 Content 12.7 L 13.6 L ABG Base Excess -14.1 L* -11.3 L* Dusty Test Y Positive O2 Delivery Device Bipap Oxygen Flow Rate Nbm 100% 100% Vent Mode S/t Vent Rate 12 Mechanical Rate Bipap PEEP 0.0 Pressure Support Vent Ipap 15/epap 6 Sodium 139 Potassium 4.0 Chloride 111 H Carbon Dioxide 14 L D Anion Gap 14 BUN 12 Creatinine 1.4 H D Creat Clearance w eGFR 35.65 Random Glucose 282 H D Lactic Acid Calcium 7.3 L Magnesium 2.2 Total Bilirubin 0.4 D Direct Bilirubin AST 109 H D ALT 86 H D Alkaline Phosphatase 83 D Troponin I 0.12 H B-Natriuretic Peptide Total Protein 6.1 L Albumin 2.5 L 08/28/17 08/28/17 08/28/17 19:45 19:45 19:45 WBC 12.9 H D RBC 4.00 Hgb 9.9 L Hct 31.3 L MCV 78.1 L MCH 24.8 L MCHC 31.7 L RDW 17.2 H Plt Count 181 D MPV 10.7 Neutrophils % 86.4 H Lymphocytes % 8.3 D Monocytes % 3.9 Eosinophils % 1.0 D Basophils % 0.4 Anticoagulation Therapy Puncture Site ABG pH ABG pCO2 at Pt Temp ABG pO2 at Pt Temp ABG HCO3 ABG O2 Sat (Measured) ABG O2 Content ABG Base Excess Dusty Test O2 Delivery Device Oxygen Flow Rate Vent Mode Vent Rate Mechanical Rate PEEP Pressure Support Vent Sodium Potassium Chloride Carbon Dioxide Anion Gap BUN Creatinine Creat Clearance w eGFR Random Glucose Lactic Acid 4.4 H* Calcium Magnesium Total Bilirubin 0.4 Direct Bilirubin < 0.2 AST 116 H ALT 86 H Alkaline Phosphatase 86 Troponin I B-Natriuretic Peptide Total Protein 6.0 L Albumin 2.5 L 08/28/17 08/29/17 08/29/17 21:00 04:00 05:00 WBC RBC Hgb Hct MCV MCH MCHC RDW Plt Count MPV Neutrophils % Lymphocytes % Monocytes % Eosinophils % Basophils % Anticoagulation Therapy Y Puncture Site Right brachial Right brachial ABG pH 7.35 7.44 ABG pCO2 at Pt Temp 32.5 L D 28.8 L ABG pO2 at Pt Temp 299.0 H* D 130.0 H D ABG HCO3 17.2 L 19.4 L ABG O2 Sat (Measured) 99.6 H* 98.8 ABG O2 Content 14.8 L 13.6 L ABG Base Excess -7.1 L -3.5 L Dusty Test Positive Positive O2 Delivery Device Vent Y Oxygen Flow Rate 100 40% Vent Mode A/c A/c Vent Rate 16 14 Mechanical Rate Yes Y PEEP 10.0 10.0 Pressure Support Vent 450 450 Sodium 140 Potassium 4.2 Chloride 109 H Carbon Dioxide 21 D Anion Gap 10 BUN 12 Creatinine 1.3 H Creat Clearance w eGFR 38.84 Random Glucose 107 H D Lactic Acid Calcium 7.6 L Magnesium 2.4 Total Bilirubin 0.5 D Direct Bilirubin AST 71 H D ALT 77 Alkaline Phosphatase 79 Troponin I B-Natriuretic Peptide 00933.53 H Total Protein 6.0 L Albumin 2.5 L 08/29/17 08/29/17 05:00 07:25 WBC 8.5 D RBC 3.87 Hgb 9.6 L Hct 30.1 L MCV 77.7 L MCH 24.8 L MCHC 31.9 L RDW 16.9 H Plt Count 161 MPV 11.0 Neutrophils % Lymphocytes % Monocytes % Eosinophils % Basophils % Anticoagulation Therapy Puncture Site Right radial ABG pH 7.44 ABG pCO2 at Pt Temp 29.1 L ABG pO2 at Pt Temp 102.0 H D ABG HCO3 19.3 L ABG O2 Sat (Measured) 97.7 ABG O2 Content 18.3 ABG Base Excess -3.3 L Dusty Test Positive O2 Delivery Device Mech vent Oxygen Flow Rate 40% Vent Mode A/c Vent Rate 12 Mechanical Rate PEEP 10.0 Pressure Support Vent 380 Sodium Potassium Chloride Carbon Dioxide Anion Gap BUN Creatinine Creat Clearance w eGFR Random Glucose Lactic Acid Calcium Magnesium Total Bilirubin Direct Bilirubin AST ALT Alkaline Phosphatase Troponin I B-Natriuretic Peptide Total Protein Albumin Active Medications Generic Name Dose Route Start Last Admin Trade Name Freq PRN Reason Stop Dose Admin Acetaminophen 650 mg 08/26/17 20:52 08/28/17 02:29 Tylenol - PO 650 mg Q6H PRN Administration FEVER OR PAIN Albuterol/Ipratropium 1 amp 08/29/17 01:00 08/29/17 05:51 Duoneb - NEB 1 amp QIDR DUC Administration Aspirin 81 mg 08/26/17 10:00 08/28/17 09:40 Asa - PO 81 mg DAILY DUC Administration Atorvastatin Calcium 40 mg 08/25/17 22:00 08/28/17 22:07 Lipitor - PO 40 mg HS DUC Administration Heparin Sodium (Porcine) 5,000 unit 08/25/17 22:00 08/28/17 22:07 Heparin - SQ 5,000 unit BID DUC Administration Azithromycin 250 mg/ Dextrose 250 mls @ 250 mls/hr 08/28/17 16:00 08/28/17 15 :01 IVPB 250 mls/hr DAILY@1600 DUC Administration CEFTRIAXONE 1 G/50 ML PREMIX 50 mls @ 100 mls/hr 08/27/17 19:00 08/28/17 09: 40 Ceftriaxone 1 Gm-D5w Bag IVPB 100 mls/hr DAILY DUC Administration Propofol 1,000,000 mcg in 100 mls @ 1.825 mls/hr 08/28/17 22:30 08/28/17 22: 37 Diprivan - IVPB 15 mcg/kg/min TITR DUC 5.475 mls/hr Protocol Administration 5 MCG/KG/MIN Metoprolol Succinate 50 mg 08/26/17 10:00 08/28/17 09:41 Toprol Xl - PO 50 mg DAILY DUC Administration ASSESSMENT/PLAN 87 year-old female with PMH significant for HTN, systolic heart failure, cardiac cath at [facility] 07/2017, and COPD. Admitted with complaint of fever, weakness, frequent urination, diarrhea, and reported low blood pressure. Acute hypoxic respiratory failure Acute on chronic systolic heart failure --at time of admission was volume depleted due to diarrhea and overdiuresis; lasix was and held and fluid resuscitated --acute onset last evening of tachypnea, tachycardia, bilateral pulmonary edema on CXR, BNP 5,624-->16,299; intubated --lasix IV total 120mg given with very low UOP; additional 80mg given overnight; now with good UOP ~80cc/hr; CXR today with some improvement --continue Lasix IV 40mg BID --per cardiology, hold metoprolol today, resume 08/30 if BP remains stable and CHF continues to improve --once CHF resolves start valsartan BID Coronary artery disease --Cardiac cath 07/2017: mild, non-intervenable, non-critical disease --hold beta grisel for now due to low BP --continue ASA, Lipitor --troponin 0.12, two pending Hypertension --hypotensive overnight, multifactorial: CHF v. cardiogenic shock v. positive pressure ventilation v. sedation --hold beta grisel Pneumonia --afebrile for 24 hours; no leukocytosis --08/27 CXR: right base infiltrate --continue ceftriaxone (day #3) and azithromycin (day #3) BHAVNA --Cr 1.9 on admission, normalized to 0.8, elevated today to 1.3 following aggressive Lasix --hold ACEI/ARB for now COPD --stable --continue duonebs FEN Fluids: PO intake adequate Electrolytes: replete as indicated Nutrition: low sodium DVT prophylaxis --subq heparin, oob, ambulation Physical therapy evaluation Dispo: continues to require ICU level care. Full code. Visit type - Emergency Visit Emergency Visit: Yes ED Registration Date: 08/25/17 Care time: The patient presented to the Emergency Department on the above date and was hospitalized for further evaluation of their emergent condition. - New Patient This patient is new to me today: No - Critical Care Critical Care patient: Yes Total Critical Care Time (in minutes): 45 Critical Care Statement: The care of this patient involved high complexity decision making to prevent further life threatening deterioration of the patient 's condition and/or to evaluate & treat vital organ system(s) failure or risk of failure.
--- NOTE | 2017-08-29 08:55 | PN ---
Progress Note, Physician Chief Complaint: acute resp failure History of Present Illness: acute resp distress last night, intubated. already extubated this am. denies sob at present. denies cp ever. no palpitations, syncope - Current Medication List Current Medications: Active Medications Acetaminophen (Tylenol -) 650 mg PO Q6H PRN PRN Reason: FEVER OR PAIN Last Admin: 08/28/17 02:29 Dose: 650 mg Albuterol/Ipratropium (Duoneb -) 1 amp NEB QIDR [facility] Last Admin: 08/29/17 05:51 Dose: 1 amp Aspirin (Asa -) 81 mg PO DAILY [facility] Last Admin: 08/28/17 09:40 Dose: 81 mg Atorvastatin Calcium (Lipitor -) 40 mg PO HS [facility] Last Admin: 08/28/17 22:07 Dose: 40 mg Heparin Sodium (Porcine) (Heparin -) 5,000 unit SQ BID [facility] Last Admin: 08/28/17 22:07 Dose: 5,000 unit Azithromycin 250 mg/ Dextrose 250 mls @ 250 mls/hr IVPB DAILY@1600 [facility] Last Admin: 08/28/17 15:01 Dose: 250 mls/hr CEFTRIAXONE 1 G/50 ML PREMIX (Ceftriaxone 1 Gm-D5w Bag) 50 mls @ 100 mls/hr IVPB DAILY [facility] Last Admin: 08/28/17 09:40 Dose: 100 mls/hr Propofol (Diprivan -) 1,000,000 mcg in 100 mls @ 1.825 mls/hr IVPB TITR [facility]; 5 MCG/KG/MIN PRN Reason: Protocol Last Admin: 08/28/17 22:37 Dose: 15 mcg/kg/min, 5.475 mls/hr Metoprolol Succinate (Toprol Xl -) 50 mg PO DAILY [facility] Last Admin: 08/28/17 09:41 Dose: 50 mg - Objective Vital Signs: Vital Signs Temperature 98.0 F 08/29/17 06:00 Pulse Rate 86 08/29/17 08:00 Respiratory Rate 20 08/29/17 08:00 Blood Pressure 108/53 08/29/17 08:00 O2 Sat by Pulse Oximetry (%) 97 08/28/17 23:24 Constitutional: Yes: Well Nourished, No Distress, Calm Cardiovascular: Yes: Regular Rate and Rhythm, JVD, S1, S2. No: Gallop, Murmur Respiratory: Yes: Regular, Rales. No: Accessory Muscle Use, Wheezes Extremities: No: Cold Edema: No Neurological: Yes: Alert. No: Seizure Psychiatric: No: Agitated Labs: CBC, BMP 08/29/17 05:00 08/29/17 05:00 INR, PTT INR 1.02 (0.82-1.09) 08/25/17 11:27 Laboratory Tests 08/25/17 08/28/17 08/28/17 11:27 07:00 18:45 ABG pH 7.22 L* ABG pCO2 at Pt Temp 30.5 L ABG pO2 at Pt Temp 59.4 L Oxygen Flow Rate Nbm 100% Sodium Potassium BUN 12 D Creatinine 0.8 B-Natriuretic Peptide 5654.89 H 08/28/17 08/29/17 08/29/17 19:45 05:00 07:25 ABG pH 7.44 ABG pCO2 at Pt Temp 29.1 L ABG pO2 at Pt Temp 102.0 H D Oxygen Flow Rate 40% Sodium 140 Potassium 4.2 BUN 12 12 Creatinine 1.4 H D 1.3 H B-Natriuretic Peptide 79296.53 H - ....Imaging EKG: Other (tele: NSR/sinus tachycardia) Assessment/Plan cxr: clear lung dubon, improved from prior. echo 07/2017 ([facility]): bline lve. lv sys fn severly reduced. severe global HK. nl rv. mild mvp. mod-sev mr. 1+ tr. echo 07/2017 ([facility]): mild lve, g1dd, lvef 29%, nl rv, sev lae, mild mr, nl rvsp stress test 07/2017: smalll-mod sized ant/anteroseptal ischemica (mild intensity ), small-mod sized base-apex inf ischemia (mild intensity). EF 23% at rest EF 24 % post stress cath 07/2017: distal disease, no pci done, left for med rx: 30-50 mrca 70-80 rpda, 70-80 av continuation. 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 EF 35% lvedp 15. EKG 08/28: sinus tach, LBBB with assctd repol abn--no signif change vs 08/25 ( or 07/23) EKG 08/29: NSR, LBBB (nonspecific pseudonormalization of TWIs, in setting of LBBB) a/p: 87 with h/o new diagnosis of cardiomyopathy last month, cad, lbbb, htn, copd, here with fever/infectious sx's and bola. acute hypoxic resp failure, acute on chronic syst chf, cardiogenic shock, lactic acidosis: -known nonisch CMP. lasix held on admit and given IVF for diarrhea/vol depletion. -became suddenly sob 08/28 evening, with marked hypoxia on ABG (done on 100% NRB oxygen) -cxr (images reviewed) showed acute pulm edema pattern. given lasix 40mg IVP x 2 successive doses given 20 min apart, with only approx 40cc UOP in bauman. then given lasix 80mg 6 hrs later. total UOP yest evening through this am = 1000cc ( net positive approx 1.5 L in past 24 hrs). -bnp up 16K from 5K earlier. -yest evening sbp dropped to 80s, lasix held -08/29: cxr with ongoing acute pulm edema picture. creat bumped slightly yest due to acute chf, stable (improved slightly today). -lasix 40mg ivp bid today, monitor bp. -ecg non-ischemic x2, trop 0.12. cont trend troponins (coronary anatomy at cath all branch vessel or distal dz, i.e. low-risk). -acute chf here likely due to fluid overload from IVF and holding lasix. -hold metopr today in setting of severely reduced LVEF and low bp last night ( though suspect was related to sedation)--resume 08/30 if bp remains stable and chf continues to improve -resume ARB once chf resolves and creat stable (on benicar 20 at home--can change to valsartan bid for syst chf indication) cad - cath with mild non-intervenable, non-critical disease. - con't asa, statin - ekg with known lbbb. - no signs acs htn: - low bp sec to acute chf/cardiogenic shock, vs sedation paul-intubation diarrhea, fever: - per pmd est time spent in data review, pt exam, and fomulating mgmt plan of potentially life-threatening illness = 35 min
[2017-08-29] MEDS: CEFTRIAXONE 1 G/50 ML PREMIX 50 ML IVPB SCH (09:47)
[2017-08-29] MEDS: ASPIRIN 81 MG CHEWABLE TABLETS PO SCH (09:52)
[2017-08-29] MEDS: HEPARIN NA (PORCINE) 5,000 UNITS/ML 1ML VIAL SQ SCH ×2 (09:52→22:00)
[2017-08-29] MEDS: METOPROLOL SUCCINATE 50 MG TAB.SR.24H (FP) PO SCH (09:53)
[2017-08-29] MEDS ORDERED: FUROSEMIDE 100 MG/10 ML INJECTABLE VIAL IVPB SCH (10:00)
--- NOTE | 2017-08-29 10:53 | PN ---
Progress Note (short form) - Note Progress Note: PULMONARY/CCM Pt seen and examined in the ICU. Intubated, sedated this AM. Awake, following commands off sedation. Tolerated CPAP/PS and subsequently extubated. Last Vital Signs Temp Pulse Resp BP Pulse Ox 98 F 92 H 20 120/61 92 L 08/29/17 10:45 08/29/17 10:45 08/29/17 10:45 08/29/17 10:45 08/29/17 10:20 Intake & Output 08/26/17 08/27/17 08/28/17 08/29/17 23:59 23:59 23:59 23:59 Intake Total 810 2515 2137 288.5 Output Total 150 100 900 Balance 810 2365 2037 -611.5 Weight 60.073 kg 60.838 kg 63.191 kg Gen: extubated Heart: RRR Lung: scattered rhonchi Abd: soft, nontender Ext: + edema CBC, BMP 08/29/17 05:00 08/29/17 05:00 Active Medications Acetaminophen (Tylenol -) 650 mg PO Q6H PRN PRN Reason: FEVER OR PAIN Last Admin: 08/28/17 02:29 Dose: 650 mg Albuterol/Ipratropium (Duoneb -) 1 amp NEB QIDR [facility] Last Admin: 08/29/17 05:51 Dose: 1 amp Aspirin (Asa -) 81 mg PO DAILY [facility] Last Admin: 08/29/17 09:52 Dose: 81 mg Atorvastatin Calcium (Lipitor -) 40 mg PO HS [facility] Last Admin: 08/28/17 22:07 Dose: 40 mg Furosemide (Lasix Injection -) 40 mg IVPUSH BID@0600,1400 [facility] Heparin Sodium (Porcine) (Heparin -) 5,000 unit SQ BID [facility] Last Admin: 08/29/17 09:52 Dose: 5,000 unit Azithromycin 250 mg/ Dextrose 250 mls @ 250 mls/hr IVPB DAILY@1600 [facility] Last Admin: 08/28/17 15:01 Dose: 250 mls/hr CEFTRIAXONE 1 G/50 ML PREMIX (Ceftriaxone 1 Gm-D5w Bag) 50 mls @ 100 mls/hr IVPB DAILY [facility] Last Admin: 08/29/17 09:47 Dose: 100 mls/hr Propofol (Diprivan -) 1,000,000 mcg in 100 mls @ 1.825 mls/hr IVPB TITR DUC; 5 MCG/KG/MIN PRN Reason: Protocol Last Titration: 08/29/17 09:51 Dose: 0 mcg/kg/min, 0 mls/hr A/P s/p Acute Respiratory Failure Acute Pulmonary Edema Acute on Chronic Systolic Heart Failure Severe Mitral Regurgitation Pneumonia Acute Kidney Injury improving Lactic Acidosis COPD HTN - continue lasix - monitor urine output, creatinine - JOSE MARTIN-I/ARB - continue antibiotics - inhaled bronchodilators as needed - o2 to keep Spo2 >90% - PO as tolerated - DVT prophylaxis - continue ICU monitoring critical care time spent in reviewing chart, evaluating patient and formulating plan 35min
[2017-08-29] MEDS: FUROSEMIDE 40 MG/4 ML INJECTABLE VIAL IVPUSH SCH ×2 (10:54→14:54)
[2017-08-29] MEDS ORDERED: PT OWN MED DRAWER 7, Y5N ONE ×3 (11:24→20:55)
[2017-08-29] MEDS: ACETAMINOPHEN 325 MG TABLET (FP) PO PRN (15:25)
[2017-08-29] MEDS: AZITHROMYCIN IVPB 250 MG in DEXTROSE 5%-WATER - 250 ML IVPB SCH (16:36)
--- NOTE | 2017-08-29 16:59 | EKG ---
Test Reason : Blood Pressure : / mmHG Vent. Rate : 089 BPM Atrial Rate : 089 BPM P-R Int : 118 ms QRS Dur : 138 ms QT Int : 454 ms P-R-T Axes : 059 030 021 degrees QTc Int : 552 ms NORMAL SINUS RHYTHM LEFT BUNDLE BRANCH BLOCK ABNORMAL ECG WHEN COMPARED WITH ECG OF 28-AUG-2017 18:52, SINUS RHYTHM HAS REPLACED WIDE QRS TACHYCARDIA VENT. RATE HAS DECREASED BY 64 BPM Confirmed by MIR LEGGETT, LOBO ([id number]) on 08/29/2017 4:59:06 PM Referred By: Zuleyma JOSEPH Confirmed By:LOBO HESTER MD
[2017-08-29] MEDS ORDERED: METOPROLOL SUCCINATE 50 MG TAB.SR.24H (FP) PO ONE (17:00)
--- NOTE | 2017-08-29 17:11 | EKG ---
Test Reason : Blood Pressure : / mmHG Vent. Rate : 153 BPM Atrial Rate : 153 BPM P-R Int : 000 ms QRS Dur : 128 ms QT Int : 258 ms P-R-T Axes : 000 024 238 degrees QTc Int : 411 ms POOR DATA QUALITY, INTERPRETATION MAY BE ADVERSELY AFFECTED SINUS TACHYCARDIA LEFT VENTRICULAR HYPERTROPHY WITH QRS WIDENING AND REPOLARIZATION ABNORMALITY ABNORMAL ECG WHEN COMPARED WITH ECG OF 25-AUG-2017 10:51, SINUS TACHYCARDIA HAS REPLACED SINUS RHYTHM Confirmed by LOBO HESTER MD [id number]) on 08/29/2017 5:10:59 PM Referred By: Confirmed By:LOBO HESTER MD
[2017-08-29] MEDS: ATORVASTATIN CA 40 MG TABLET (FP) PO SCH (22:00)
[2017-08-30] MEDS: ALBUTEROL SO4 2.5/IPRATROPIUM 0.5 INH SOL 3 ML VIAL.NEB. NEB SCH ×2 (00:20→05:35)
[2017-08-30 05:53] LABS: BASO % 0.9 % (0-2.0); HEMOGLOBIN 9.9 GM/dL (10.7-15.3); MCH 25.3 pg (25.7-33.7); MEAN CELL VOLUME 76.6 fl (80-96); MONO % 8.1 % (3.8-10.2); PLATELET COUNT 191 K/MM3 (134-434); RBC 3.92 M/mm3 (3.60-5.2); RDW 17.1 % (11.6-15.6); WHITE BLOOD COUNT 7.4 K/mm3 (4.0-10.0)
[2017-08-30] MEDS: FUROSEMIDE 40 MG/4 ML INJECTABLE VIAL IVPUSH SCH ×2 (06:02→14:25)
[2017-08-30 06:19] LABS: ANION GAP 12 (8-16); BLOOD UREA NITROGEN 13 mg/dL (7-18); CALCIUM 8.3 mg/dL (8.5-10.1); CHLORIDE 109 mmol/L (98-107); CO2 22 mmol/L (21-32); GLUCOSE,RANDOM 76 mg/dL (74-106); POTASSIUM 3.3 mmol/L (3.5-5.1); SODIUM 143 mmol/L (136-145)
[2017-08-30 06:20] LABS: PHOSPHOROUS 2.6 mg/dL (2.5-4.9)
[2017-08-30] MEDS: HEPARIN NA (PORCINE) 5,000 UNITS/ML 1ML VIAL SQ SCH ×2 (09:44→21:12)
[2017-08-30] MEDS: CEFTRIAXONE 1 G/50 ML PREMIX 50 ML IVPB SCH (09:44)
[2017-08-30] MEDS: ASPIRIN 81 MG CHEWABLE TABLETS PO SCH (09:44)
[2017-08-30] MEDS: METOPROLOL SUCCINATE 25 MG TAB.SR.24H (FP) PO SCH ×2 (09:44→21:12)
[2017-08-30] MEDS ORDERED: ALBUTEROL SO4 2.5/IPRATROPIUM 0.5 INH SOL 3 ML VIAL.NEB. NEB PRN (10:04)
--- NOTE | 2017-08-30 10:05 | PN ---
Progress Note (short form) - Note Progress Note: PULMONARY/CCM Pt seen and examined in the ICU. Extubated yesterday without incident. States breathing is improving. Denies chest pain. Last Vital Signs Temp Pulse Resp BP Pulse Ox 98.7 F 108 H 22 100/57 97 08/30/17 06:00 08/30/17 08:51 08/30/17 08:51 08/30/17 08:51 08/29/17 20:14 Intake & Output 08/27/17 08/28/17 08/29/17 08/30/17 23:59 23:59 23:59 23:59 Intake Total 2515 2137 1138.5 Output Total 871 969 4514 Balance 2365 2037 -1561.5 Weight 60.838 kg 63.191 kg 60.237 kg Gen: less tachypneic Heart: RRR Lung: scattered rhonchi, bibasilar rales Abd: soft, nontender Ext: + edema CBC, BMP 08/30/17 05:10 08/30/17 05:10 Active Medications Acetaminophen (Tylenol -) 650 mg PO Q6H PRN PRN Reason: FEVER OR PAIN Last Admin: 08/29/17 15:25 Dose: 650 mg Albuterol/Ipratropium (Duoneb -) 1 amp NEB QIDR [facility] Last Admin: 08/30/17 05:35 Dose: 1 amp Aspirin (Asa -) 81 mg PO DAILY [facility] Last Admin: 08/30/17 09:44 Dose: 81 mg Atorvastatin Calcium (Lipitor -) 40 mg PO HS [facility] Last Admin: 08/29/17 22:00 Dose: 40 mg Furosemide (Lasix Injection -) 40 mg IVPUSH BID@0600,1400 [facility] Last Admin: 08/30/17 06:02 Dose: 40 mg Heparin Sodium (Porcine) (Heparin -) 5,000 unit SQ BID [facility] Last Admin: 08/30/17 09:44 Dose: 5,000 unit Azithromycin 250 mg/ Dextrose 250 mls @ 250 mls/hr IVPB DAILY@1600 [facility] Last Admin: 08/29/17 16:36 Dose: 250 mls/hr CEFTRIAXONE 1 G/50 ML PREMIX (Ceftriaxone 1 Gm-D5w Bag) 50 mls @ 100 mls/hr IVPB DAILY [facility] Last Admin: 08/30/17 09:44 Dose: 100 mls/hr Metoprolol Succinate (Toprol Xl -) 25 mg PO BID [facility] Last Admin: 08/30/17 09:44 Dose: 25 mg A/P s/p Acute Respiratory Failure Acute Pulmonary Edema Acute on Chronic Systolic Heart Failure Severe Mitral Regurgitation Pneumonia Acute Kidney Injury improving Lactic Acidosis COPD HTN - continue lasix - monitor urine output, creatinine - beta grisel, titrate for rate control - JOSE MARTIN-I/ARB - continue antibiotics - inhaled bronchodilators as needed - O2 to keep Spo2 >90% - PO as tolerated - DVT prophylaxis - can monitor on telemetry critical care time spent in reviewing chart, evaluating patient and formulating plan 35min
[2017-08-30] MEDS ORDERED: POTASSIUM CHLORIDE TABS 20 MEQ TABLET.ER (FP) PO ONE (10:15)
--- NOTE | 2017-08-30 12:22 | PN ---
Progress Note, Physician Chief Complaint: acute resp failure History of Present Illness: denies any sob no cp, palpitations ongoing watery stools - Current Medication List Current Medications: Active Medications Acetaminophen (Tylenol -) 650 mg PO Q6H PRN PRN Reason: FEVER OR PAIN Last Admin: 08/29/17 15:25 Dose: 650 mg Albuterol/Ipratropium (Duoneb -) 1 amp NEB Q6H PRN PRN Reason: SHORT OF BREATH/WHEEZING Aspirin (Asa -) 81 mg PO DAILY [facility] Last Admin: 08/30/17 09:44 Dose: 81 mg Atorvastatin Calcium (Lipitor -) 40 mg PO HS [facility] Last Admin: 08/29/17 22:00 Dose: 40 mg Furosemide (Lasix Injection -) 40 mg IVPUSH BID@0600,1400 [facility] Last Admin: 08/30/17 06:02 Dose: 40 mg Heparin Sodium (Porcine) (Heparin -) 5,000 unit SQ BID [facility] Last Admin: 08/30/17 09:44 Dose: 5,000 unit Azithromycin 250 mg/ Dextrose 250 mls @ 250 mls/hr IVPB DAILY@1600 [facility] Last Admin: 08/29/17 16:36 Dose: 250 mls/hr CEFTRIAXONE 1 G/50 ML PREMIX (Ceftriaxone 1 Gm-D5w Bag) 50 mls @ 100 mls/hr IVPB DAILY [facility] Last Admin: 08/30/17 09:44 Dose: 100 mls/hr Metoprolol Succinate (Toprol Xl -) 25 mg PO BID [facility] Last Admin: 08/30/17 09:44 Dose: 25 mg - Objective Vital Signs: Vital Signs Temperature 98.7 F 08/30/17 06:00 Pulse Rate 109 H 08/30/17 12:00 Respiratory Rate 24 08/30/17 12:00 Blood Pressure 132/65 08/30/17 12:00 O2 Sat by Pulse Oximetry (%) 97 08/29/17 20:14 Constitutional: Yes: Well Nourished, No Distress, Calm Cardiovascular: Yes: Regular Rate and Rhythm, S1, S2. No: JVD, Gallop, Murmur Respiratory: Yes: Regular, Rales (bilat). No: Accessory Muscle Use, Wheezes Extremities: No: Cold Edema: No Neurological: Yes: Alert, Oriented Psychiatric: No: Agitated Labs: CBC, BMP 08/30/17 05:10 08/30/17 05:10 INR, PTT INR 1.02 (0.82-1.09) 08/25/17 11:27 - ....Imaging EKG: Other (tele: sinus tach with wide QRS (LBBB), brief SVT) Assessment/Plan cxr: clear lung dubon, improved from prior. echo 07/2017 ([facility]): bline lve. lv sys fn severly reduced. severe global HK. nl rv. mild mvp. mod-sev mr. 1+ tr. echo 07/2017 ([facility]): mild lve, g1dd, lvef 29%, nl rv, sev lae, mild mr, nl rvsp stress test 07/2017: smalll-mod sized ant/anteroseptal ischemica (mild intensity ), small-mod sized [place] inf ischemia (mild intensity). EF 23% at rest EF 24 % post stress cath 07/2017: distal disease, no pci done, left for med rx: 30-50 mrca 70-80 rpda, 70-80 av continuation. director of diversity and inclusion lpl1 (fills via collaterals). EF 35% lvedp 15. EKG 08/28: sinus tach, LBBB with assctd repol abn--no signif change vs 08/25 ( or 07/23) EKG 08/29: NSR, LBBB (nonspecific pseudonormalization of TWIs, in setting of LBBB) a/p: 87 with h/o new diagnosis of cardiomyopathy last month, cad, lbbb, htn, copd, here with fever/infectious sx's and bola. acute hypoxic resp failure, acute on chronic syst chf, cardiogenic shock, lactic acidosis: -known nonisch CMP. lasix held on admit and given IVF for diarrhea/vol depletion. -became suddenly sob 08/28 evening, with marked hypoxia on ABG (done on 100% NRB oxygen) -cxr (images reviewed) showed acute pulm edema pattern. given lasix 40mg IVP x 2 successive doses given 20 min apart, with only approx 40cc UOP in bauman. then given lasix 80mg 6 hrs later. total UOP yest evening through this am = 1000cc ( net positive approx 1.5 L in past 24 hrs). -bnp up 16K from 5K earlier. -yest evening sbp dropped to 80s, lasix held -08/29: cxr with ongoing acute pulm edema picture. creat bumped slightly yest due to acute chf, stable (improved slightly today). lasix 40 iv bid -08/30: net negative 1500cc yesterday. CXR mild chf picture, no change vs yesterday. sinus tach persists. metopr resumed yest (25 bid). renal function improved. -cont lasix 40 iv bid. -ecg non-ischemic x2, trop 0.12. cont trend troponins (coronary anatomy at cath all branch vessel or distal dz, i.e. low-risk). -acute chf here likely due to fluid overload from IVF and holding lasix. -resume ARB once chf resolves and creat stable (on benicar 20 at home--can change to valsartan bid for syst chf indication) -sees dr jackson for cardiology--defer ICD/MERCERIZER discussion to outpt f/u with him once acute issues resolved cad - cath with mild non-intervenable, non-critical disease. - con't asa, statin - ekg with known lbbb. - no signs acs htn: - low bp sec to acute chf/cardiogenic shock, vs sedation paul-intubation diarrhea, fever: - persists, ? etiology--per hospitalist est time spent in data review, pt exam, and fomulating mgmt plan of potentially life-threatening illness = 35 min
--- NOTE | 2017-08-30 14:11 | PN ---
Physical Exam: SUBJECTIVE: Patient seen and examined in ICU. Extubated yesterday, no issues, satting well on NC, no acute complaints, sob, chest pain. OBJECTIVE: Vital Signs Period Temp Pulse Resp BP Sys/Ortiz Pulse Ox Last 24 Hr 97.4 F-98.7 F 92-112 18-36 90-132/48-74 97-97 PE Neuro: alert, awake, cn 2-12intact Pulm: bi basilar rales, +NC CV: s1 s2 tachycardia, no mrg Abd: s nt nd + bs : bauman Ext: warm, no le edema Laboratory Results - last 24 hr 08/29/17 08/30/17 08/30/17 14:30 05:10 05:10 WBC 7.4 RBC 3.92 Hgb 9.9 L Hct 30.0 L MCV 76.6 L MCH 25.3 L MCHC 33.0 RDW 17.1 H Plt Count 191 MPV 10.0 Neutrophils % 57.0 D Lymphocytes % 28.0 D Monocytes % 8.1 D Eosinophils % 6.0 H D Basophils % 0.9 Sodium 143 Potassium 3.3 L D Chloride 109 H Carbon Dioxide 22 Anion Gap 12 BUN 13 Creatinine 1.0 D Random Glucose 76 D Calcium 8.3 L Phosphorus 2.6 D Magnesium 2.0 Creatine Kinase 232 H Creatine Kinase Index 1.5 CK-MB (CK-2) 3.510 Troponin I 0.15 H Active Medications Generic Name Dose Route Start Last Admin Trade Name Freq PRN Reason Stop Dose Admin Acetaminophen 650 mg 08/26/17 20:52 08/29/17 15:25 Tylenol - PO 650 mg Q6H PRN Administration FEVER OR PAIN Albuterol/Ipratropium 1 amp 08/30/17 10:04 08/30/17 11:05 Duoneb - NEB 1 amp Q6H PRN Administration SHORT OF BREATH/WHEEZING Aspirin 81 mg 08/26/17 10:00 08/30/17 09:44 Asa - PO 81 mg DAILY [facility] Administration Atorvastatin Calcium 40 mg 08/25/17 22:00 08/29/17 22:00 Lipitor - PO 40 mg HS [facility] Administration Furosemide 40 mg 08/29/17 10:45 08/30/17 06:02 Lasix Injection - IVPUSH 40 mg BID@0600,1400 [facility] Administration Heparin Sodium (Porcine) 5,000 unit 08/25/17 22:00 08/30/17 09:44 Heparin - SQ 5,000 unit BID [facility] Administration Azithromycin 250 mg/ Dextrose 250 mls @ 250 mls/hr 08/28/17 16:00 08/29/17 16 :36 IVPB 250 mls/hr DAILY@1600 [facility] Administration CEFTRIAXONE 1 G/50 ML PREMIX 50 mls @ 100 mls/hr 08/27/17 19:00 08/30/17 09: 44 Ceftriaxone 1 Gm-D5w Bag IVPB 100 mls/hr DAILY [facility] Administration Metoprolol Succinate 25 mg 08/30/17 10:00 08/30/17 09:44 Toprol Xl - PO 25 mg BID [facility] Administration Assessment: 87 year old female with PMH significant for HTN, systolic heart failure, cardiac cath at [facility] 07/2017, and COPD. Admitted with complaint of fever, weakness, frequent urination, diarrhea, and reported low blood pressure, hospital course complicated by acute pulmonary edema requiring intubation, now extubated continuing diuresis. Plan: 1. Acute hypoxic respiratory failure - Due to acute pulmonary edema - Extubated 08/29 - Stable on NC 2. Acute on chronic systolic heart failure - Continue Lasix 40mg BID - Continue Toprol xl 25mg BID - Restart Valsartan BID once CHF resolved 3. Coronary artery disease - Cardiac cath 07/2017: mild, non-intervenable, non-critical disease - Continue ASA, Lipitor - Trop down trended 4. Hypotension - Resolved - BB resumed 5. Pneumonia - Continue ceftriaxone (day #4) azithromycin (day #4) 6. BHAVNA - Resolved - Hold ARB 7. COPD - Stable - Continue duonebs 8. DVT ppx - Heparin sq 9. Diarrhea - send stool studies, c diff antigen 10. Hypokalemia - Repelted Physical therapy evaluation Dispo: - Transfer to floor Visit type - Emergency Visit Emergency Visit: Yes ED Registration Date: 08/25/17 Care time: The patient presented to the Emergency Department on the above date and was hospitalized for further evaluation of their emergent condition. - New Patient This patient is new to me today: Yes Date on this admission: 08/30/17 - Critical Care Critical Care patient: No
[2017-08-30] MEDS: AZITHROMYCIN IVPB 250 MG in DEXTROSE 5%-WATER - 250 ML IVPB SCH (16:17)
[2017-08-30] MEDS: ATORVASTATIN CA 40 MG TABLET (FP) PO SCH (21:12)
[2017-08-31 06:17] LABS: BASO % 1.1 % (0-2.0); EOS % 6.7 % (0-4.5); HEMOGLOBIN 10.3 GM/dL (10.7-15.3); LYMPH % 30.9 % (8-40); MCH 24.9 pg (25.7-33.7); MCHC 32.3 g/dl (32.0-36.0); MEAN CELL VOLUME 77.1 fl (80-96); MEAN PLT VOLUME 10.1 fl (7.5-11.1); MONO % 8.6 % (3.8-10.2); NEUT % 52.7 % (42.8-82.8); PLATELET COUNT 268 K/MM3 (134-434); RBC 4.14 M/mm3 (3.60-5.2); RDW 17.3 % (11.6-15.6); WHITE BLOOD COUNT 7.7 K/mm3 (4.0-10.0)
[2017-08-31 06:45] LABS: ALBUMIN 2.8 g/dl (3.4-5.0); ALK PHOS 82 U/L (45-117); ANION GAP 8 (8-16); BILIRUBIN,TOTAL 0.5 mg/dL (0.2-1.0); BLOOD UREA NITROGEN 17 mg/dL (7-18); CALCIUM 8.7 mg/dL (8.5-10.1); CHLORIDE 112 mmol/L (98-107); CO2 26 mmol/L (21-32); CREATININE 1.1 mg/dL (0.55-1.02); GLUCOSE,RANDOM 81 mg/dL (74-106); MAGNESIUM 2.3 mg/dL (1.8-2.4); PHOSPHOROUS 3.3 mg/dL (2.5-4.9); POTASSIUM 3.9 mmol/L (3.5-5.1); SGOT/AST 51 U/L (15-37); SGPT/ALT 72 U/L (12-78); SODIUM 146 mmol/L (136-145); TOT PROT 6.6 g/dl (6.4-8.2)
[2017-08-31] MEDS: FUROSEMIDE 40 MG/4 ML INJECTABLE VIAL IVPUSH SCH ×2 (06:48→13:00)
[2017-08-31] MEDS ORDERED: PT OWN MED DRAWER 7, Y5N ONE (08:46)
--- NOTE | 2017-08-31 09:04 | PN ---
Physical Exam: SUBJECTIVE: Patient seen and examined in ICU. OBJECTIVE: Vital Signs Period Temp Pulse Resp BP Sys/Ortiz Pulse Ox Last 24 Hr 93-109 21-29 110-132/54-74 95 GENERAL: The patient is awake, alert, and fully oriented, in no acute distress. EYES: PERRL, extraocular movements intact, sclera anicteric, conjunctiva clear. No ptosis. Hazing noted around bilateral irises. LUNGS: Breath sounds equal, bibasilar crackles, no accessory muscle use. HEART: Regular rate and rhythm, S1, S2 without murmur, rub or gallop. ABDOMEN: SNTND EXTREMITIES: 2+ pulses, warm, well-perfused, no edema. NEUROLOGICAL: Cranial nerves II through XII grossly intact. Normal speech, gait not observed. Laboratory Results - last 24 hr 08/31/17 08/31/17 05:05 05:05 WBC 7.7 RBC 4.14 Hgb 10.3 L Hct 32.0 L MCV 77.1 L MCH 24.9 L MCHC 32.3 RDW 17.3 H Plt Count 268 D MPV 10.1 Neutrophils % 52.7 Lymphocytes % 30.9 Monocytes % 8.6 Eosinophils % 6.7 H Basophils % 1.1 Sodium 146 H Potassium 3.9 Chloride 112 H Carbon Dioxide 26 Anion Gap 8 BUN 17 D Creatinine 1.1 H Creat Clearance w eGFR 47.09 Random Glucose 81 Calcium 8.7 Phosphorus 3.3 D Magnesium 2.3 Total Bilirubin 0.5 AST 51 H D ALT 72 Alkaline Phosphatase 82 Total Protein 6.6 Albumin 2.8 L Active Medications Generic Name Dose Route Start Last Admin Trade Name Freq PRN Reason Stop Dose Admin Acetaminophen 650 mg 08/26/17 20:52 08/29/17 15:25 Tylenol - PO 650 mg Q6H PRN Administration FEVER OR PAIN Albuterol/Ipratropium 1 amp 08/30/17 10:04 08/30/17 11:05 Duoneb - NEB 1 amp Q6H PRN Administration SHORT OF BREATH/WHEEZING Aspirin 81 mg 08/26/17 10:00 08/30/17 09:44 Asa - PO 81 mg DAILY [facility]UC Administration Atorvastatin Calcium 40 mg 08/25/17 22:00 08/30/17 21:12 Lipitor - PO 40 mg HS [facility] Administration Furosemide 40 mg 08/29/17 10:45 08/31/17 06:48 Lasix Injection - IVPUSH 40 mg BID@0600,1400 [facility] Administration Heparin Sodium (Porcine) 5,000 unit 08/25/17 22:00 08/30/17 21:12 Heparin - SQ 5,000 unit BID [facility] Administration Azithromycin 250 mg/ Dextrose 250 mls @ 250 mls/hr 08/28/17 16:00 08/30/17 16 :17 IVPB 250 mls/hr DAILY@1600 [facility] Administration CEFTRIAXONE 1 G/50 ML PREMIX 50 mls @ 100 mls/hr 08/27/17 19:00 08/30/17 09: 44 Ceftriaxone 1 Gm-D5w Bag IVPB 100 mls/hr DAILY [facility] Administration Metoprolol Succinate 25 mg 08/30/17 10:00 08/30/17 21:12 Toprol Xl - PO 25 mg BID [facility] Administration Microbiology 08/25/17 11:30 Blood - Peripheral Venous Blood Culture - Final NO GROWTH AFTER 5 DAYS INCUBATION 08/25/17 11:21 Blood - Peripheral Venous Blood Culture - Final NO GROWTH AFTER 5 DAYS INCUBATION 08/28/17 19:34 Sputum - Expectorated Gram Stain - Final 08/28/17 19:34 Sputum - Expectorated Sputum Culture - Preliminary NORMAL RESPIRATORY SURINDER 08/29/17 00:00 Sputum - Endotrachea Suction/Ventilator Gram Stain - Final 08/29/17 00:00 Sputum - Endotrachea Suction/Ventilator Sputum Culture - Preliminary 08/27/17 09:15 Blood - Peripheral Venous Blood Culture - Preliminary NO GROWTH OBTAINED AFTER 72 HOURS, INCUBATION TO CONTINUE FOR 2 DAYS. 08/27/17 09:10 Blood - Peripheral Venous Blood Culture - Preliminary NO GROWTH OBTAINED AFTER 72 HOURS, INCUBATION TO CONTINUE FOR 2 DAYS. 08/29/17 00:00 Nasopharyngeal Swab Respiratory Virus (PCR) - Preliminary 08/27/17 10:45 Stool Salmonella/Shigella Culture - Final NO GROWTH OF SALMONELLA OR SHIGELLA SPECIES OBTAINED 08/27/17 10:45 Stool Campylobacter Culture - Final NO GROWTH OF CAMPYLOBACTER SPECIES OBTAINED 08/27/17 10:45 Stool Yersinia Culture - Final NO GROWTH OF YERSINIA SPECIES OBTAINED 08/27/17 10:45 Stool Vibrio Culture - Final NO GROWTH OF VIBRIO SPECIES OBTAINED 08/27/17 10:45 Stool Escherichia coli 0157 Culture - Final NO GROWTH OF E COLI 0157 OBTAINED 08/27/17 13:04 Urine - Urine Calderon Urine Culture - Final 08/27/17 22:40 Urine For Antigen Detection Legionella Antigen - Final 08/27/17 22:40 Urine For Antigen Detection Streptococcus pneumoniae Antigen (M - Final 08/27/17 10:45 Stool Gram Stain - Final 08/25/17 15:40 Urine - Urine Clean Catch Urine Culture - Final NO GROWTH OBTAINED 08/25/17 17:35 Nasopharyngeal Swab Influenza Types A,B Antigen (FRANCESCA) - Final 08/25/17 17:35 Nasopharyngeal Swab - Final ASSESSMENT/PLAN: A: 87 year old female with PMH significant for HTN, systolic heart failure, cardiac cath at [facility] 07/2017, and COPD. Admitted with complaint of fever, weakness, frequent urination, diarrhea, and reported low blood pressure, hospital course complicated by acute pulmonary edema requiring intubation, now extubated continuing diuresis. P: Acute hypoxic respiratory failure - Due to APE - Extubated 08/29 - Maintaining Spo2 on 2LNC - serial CXR Acute on chronic systolic heart failure - Continue Lasix 40mg BID - Continue Toprol xl 25mg BID - Restart Valsartan BID once euvolemic - CXR improving- congestive changes remain - echo pending Coronary artery disease - Cardiac cath 07/2017: mild, non-intervenable, non-critical disease - Continue ASA, Lipitor Hypotension - Resolved Pneumonia - Continue ceftriaxone and azithromycin (day #5) BHAVNA - Resolved - Hold ARB COPD - Stable - Continue duonebs Diarrhea - stool studies negative - O&P pending Hypokalemia - Resolved F/E/N: - Low Na diet - replete prn PPX - PT - sqh - OOB Dispo: - Transfer to floor when tele bed available Visit type - Emergency Visit Emergency Visit: Yes ED Registration Date: 08/25/17 Care time: The patient presented to the Emergency Department on the above date and was hospitalized for further evaluation of their emergent condition. - New Patient This patient is new to me today: Yes Date on this admission: 09/01/17 - Critical Care Critical Care patient: No
--- NOTE | 2017-08-31 09:16 | PN ---
Physical Exam: SUBJECTIVE: Patient seen and examined. No new c/o. Awaiting tele bed. Had 6 episodes of loose stool yesterday, non today. OBJECTIVE: Vital Signs Period Temp Pulse Resp BP Sys/Ortiz Pulse Ox Last 24 Hr 93-109 21-29 110-132/54-74 95 Vital Signs Temp 98.7 F 08/30/17 06:00 Pulse 93 H 08/31/17 12:00 Resp 12 08/31/17 12:00 BP 116/63 08/31/17 12:00 Pulse Ox 95 08/30/17 20:33 Intake & Output 08/30/17 08/31/17 08/31/17 23:59 11:59 23:59 Intake Total 350 Output Total 900 Balance -550 Weight 62.8 kg Intake: IVPB 350 Output: Urine 900 Calderon 900 Other: Voiding Method Bedpan Indwelling Catheter Bowel Movement No Weight Measurement Method Built in [facility] GENERAL: The patient is awake, alert, and fully oriented, in no acute distress. EYES: Reactive pupils bilaterally, EOMI ENT: Remains extubated and sating well on 3L NC O2 post intubation NECK: Trachea midline, full range of motion, supple. LUNGS: Bilateral crackles HEART: Regular rate and rhythm, S1, S2 without murmur, rub or gallop. ABDOMEN: Soft, nontender, nondistended, normoactive bowel sounds, no guarding, no rebound, no hepatosplenomegaly, no masses. EXTREMITIES: 2+ pulses, warm, well-perfused, no edema. NEUROLOGICAL: Normal tone, power and reflexes. Normal speech, gait not observed. PSYCH: Normal mood, normal affect. SKIN: Warm, dry, normal turgor, no rashes or lesions noted Laboratory Results - last 24 hr 08/31/17 08/31/17 05:05 05:05 WBC 7.7 RBC 4.14 Hgb 10.3 L Hct 32.0 L MCV 77.1 L MCH 24.9 L MCHC 32.3 RDW 17.3 H Plt Count 268 D MPV 10.1 Neutrophils % 52.7 Lymphocytes % 30.9 Monocytes % 8.6 Eosinophils % 6.7 H Basophils % 1.1 Sodium 146 H Potassium 3.9 Chloride 112 H Carbon Dioxide 26 Anion Gap 8 BUN 17 D Creatinine 1.1 H Creat Clearance w eGFR 47.09 Random Glucose 81 Calcium 8.7 Phosphorus 3.3 D Magnesium 2.3 Total Bilirubin 0.5 AST 51 H D ALT 72 Alkaline Phosphatase 82 Total Protein 6.6 Albumin 2.8 L Active Medications Generic Name Dose Route Start Last Admin Trade Name Ariasq PRN Reason Stop Dose Admin Acetaminophen 650 mg 08/26/17 20:52 08/29/17 15:25 Tylenol - PO 650 mg Q6H PRN Administration FEVER OR PAIN Albuterol/Ipratropium 1 amp 08/30/17 10:04 08/30/17 11:05 Duoneb - NEB 1 amp Q6H PRN Administration SHORT OF BREATH/WHEEZING Aspirin 81 mg 08/26/17 10:00 08/30/17 09:44 Asa - PO 81 mg DAILY DUC Administration Atorvastatin Calcium 40 mg 08/25/17 22:00 08/30/17 21:12 Lipitor - PO 40 mg HS DUC Administration Furosemide 40 mg 08/29/17 10:45 08/31/17 06:48 Lasix Injection - IVPUSH 40 mg BID@0600,1400 DUC Administration Heparin Sodium (Porcine) 5,000 unit 08/25/17 22:00 08/30/17 21:12 Heparin - SQ 5,000 unit BID DUC Administration Azithromycin 250 mg/ Dextrose 250 mls @ 250 mls/hr 08/28/17 16:00 08/30/17 16 :17 IVPB 250 mls/hr DAILY@1600 DUC Administration CEFTRIAXONE 1 G/50 ML PREMIX 50 mls @ 100 mls/hr 08/27/17 19:00 08/30/17 09: 44 Ceftriaxone 1 Gm-D5w Bag IVPB 100 mls/hr DAILY DUC Administration Metoprolol Succinate 25 mg 08/30/17 10:00 08/30/17 21:12 Toprol Xl - PO 25 mg BID DUC Administration Intake & Output 08/28/17 08/29/17 08/30/17 08/31/17 23:59 23:59 23:59 23:59 Intake Total 2137 1138.5 350 Output Total 100 2700 900 Balance 7 -1561.5 -550 Weight 63.191 kg 60.237 kg 62.8 kg Meal intake past 24 hours Breakfast 50% Lunch 50% ASSESSMENT/PLAN: 87 year old female with PMHx of HTN, COPD, systolic heart failure, [facility] admitted for diarrhea and fever with cough but transfered to ICU for respiratory distress following rapid response on . GI/Nutrition Last diarrheal episode yesterday Tolerating food Cardio: Acute on chronic systolic heart failure HTN, LBBB, cardiac catheterization with cardiomyopathy -cardiac cath 07/2017 : mild, non-intervenable, non-critical disease Cont Lasix 40 ivpush Lipitor 40HS For restart Valsartan BID once CHF resolved Resp: Acute hypoxic respiratory failure 2/2 acute pulmonary edema Extubated 08/29 Stable on NC- 2L COPD- Stable-- Continue duonebs Renal/ lytes/fluids: Hypotension- Resolved Metoprolol BHAVNA- Resolved Hold olmesartan ID Pneumonia Continue ceftriaxone (day #5) azithromycin (day #5) Prophylaxis DVT ppx- Heparin sq Physical therapy evaluation Dispo: - Transfer to Tele Visit type - Emergency Visit Emergency Visit: Yes ED Registration Date: 08/25/17 Care time: The patient presented to the Emergency Department on the above date and was hospitalized for further evaluation of their emergent condition. - New Patient This patient is new to me today: Yes Date on this admission: 08/31/17 - Critical Care Critical Care patient: Yes Total Critical Care Time (in minutes): 35 Critical Care Statement: The care of this patient involved high complexity decision making to prevent further life threatening deterioration of the patient 's condition and/or to evaluate & treat vital organ system(s) failure or risk of failure.
[2017-08-31] MEDS: ASPIRIN 81 MG CHEWABLE TABLETS PO SCH (09:25)
[2017-08-31] MEDS: HEPARIN NA (PORCINE) 5,000 UNITS/ML 1ML VIAL SQ SCH ×2 (09:25→21:21)
[2017-08-31] MEDS: METOPROLOL SUCCINATE 25 MG TAB.SR.24H (FP) PO SCH ×2 (09:26→21:22)
[2017-08-31] MEDS: CEFTRIAXONE 1 G/50 ML PREMIX 50 ML IVPB SCH (09:27)
--- NOTE | 2017-08-31 12:55 | PN ---
Teaching Attending Note Name of Resident: Natalie Lloyd ATTENDING PHYSICIAN STATEMENT I saw and evaluated the patient. I reviewed the resident's note and discussed the case with the resident. I agree with the resident's findings and plan as documented. SUBJECTIVE: Patient seen and examined in the ICU. Remains extubated. Awake and alert. Some dry cough. Denies chest pain. Intake & Output 08/28/17 08/29/17 08/30/17 08/31/17 23:59 23:59 23:59 23:59 Intake Total 2137 1138.5 350 Output Total 100 2700 900 Balance 2037 -1561.5 -550 Weight 139 lb 5 oz 132 lb 12.8 oz 138 lb 7.205 oz Last Vital Signs Temp Pulse Resp BP Pulse Ox 98.7 F 93 H 12 116/63 95 08/30/17 06:00 08/31/17 12:00 08/31/17 12:00 08/31/17 12:00 08/30/17 20:33 Active Medications Acetaminophen (Tylenol -) 650 mg PO Q6H PRN PRN Reason: FEVER OR PAIN Last Admin: 08/29/17 15:25 Dose: 650 mg Albuterol/Ipratropium (Duoneb -) 1 amp NEB Q6H PRN PRN Reason: SHORT OF BREATH/WHEEZING Last Admin: 08/30/17 11:05 Dose: 1 amp Aspirin (Asa -) 81 mg PO DAILY [facility] Last Admin: 08/31/17 09:25 Dose: 81 mg Atorvastatin Calcium (Lipitor -) 40 mg PO HS [facility] Last Admin: 08/30/17 21:12 Dose: 40 mg Furosemide (Lasix Injection -) 40 mg IVPUSH BID@0600,1400 [facility] Last Admin: 08/31/17 06:48 Dose: 40 mg Heparin Sodium (Porcine) (Heparin -) 5,000 unit SQ BID [facility] Last Admin: 08/31/17 09:25 Dose: 5,000 unit Azithromycin 250 mg/ Dextrose 250 mls @ 250 mls/hr IVPB DAILY@1600 [facility] Last Admin: 08/30/17 16:17 Dose: 250 mls/hr CEFTRIAXONE 1 G/50 ML PREMIX (Ceftriaxone 1 Gm-D5w Bag) 50 mls @ 100 mls/hr IVPB DAILY [facility] Last Admin: 08/31/17 09:27 Dose: 100 mls/hr Metoprolol Succinate (Toprol Xl -) 25 mg PO BID DUC Last Admin: 08/31/17 09:26 Dose: 25 mg Gen: Awake and alert, NAD Heart: RRR Lung: scattered rhonchi, bibasilar rales Abd: soft, nontender Ext: + edema Laboratory Results - last 24 hr 08/31/17 08/31/17 05:05 05:05 WBC 7.7 RBC 4.14 Hgb 10.3 L Hct 32.0 L MCV 77.1 L MCH 24.9 L MCHC 32.3 RDW 17.3 H Plt Count 268 D MPV 10.1 Neutrophils % 52.7 Lymphocytes % 30.9 Monocytes % 8.6 Eosinophils % 6.7 H Basophils % 1.1 Sodium 146 H Potassium 3.9 Chloride 112 H Carbon Dioxide 26 Anion Gap 8 BUN 17 D Creatinine 1.1 H Creat Clearance w eGFR 47.09 Random Glucose 81 Calcium 8.7 Phosphorus 3.3 D Magnesium 2.3 Total Bilirubin 0.5 AST 51 H D ALT 72 Alkaline Phosphatase 82 Total Protein 6.6 Albumin 2.8 L IMP: s/p Acute Respiratory Failure Acute Pulmonary Edema Acute on Chronic Systolic Heart Failure Severe Mitral Regurgitation Pneumonia Acute Kidney Injury improving Lactic Acidosis COPD HTN PLAN: - continue lasix - monitor urine output, creatinine - beta grisel, titrate for rate control - ABX - inhaled bronchodilators as needed - O2 to keep Spo2 >90% - PO as tolerated - DVT prophylaxis - Cardiac telemetry monitoring Dr Hall Critical care time spent in reviewing chart, evaluating patient and formulating plan 38 min
--- NOTE | 2017-08-31 15:14 | PN ---
Progress Note (short form) - Note Progress Note: Chief Complaint: acute resp failure History of Present Illness: denies any sob, cp, palpitations, dizziness. still with poor appetite. oob to chair today. + chills. + cough Current Medications Acetaminophen (Tylenol -) 650 mg PO Q6H PRN PRN Reason: FEVER OR PAIN Last Admin: 08/29/17 15:25 Dose: 650 mg Albuterol/Ipratropium (Duoneb -) 1 amp NEB Q6H PRN PRN Reason: SHORT OF BREATH/WHEEZING Last Admin: 08/30/17 11:05 Dose: 1 amp Aspirin (Asa -) 81 mg PO DAILY [facility] Last Admin: 08/31/17 09:25 Dose: 81 mg Atorvastatin Calcium (Lipitor -) 40 mg PO HS [facility] Last Admin: 08/30/17 21:12 Dose: 40 mg Furosemide (Lasix Injection -) 40 mg IVPUSH BID@0600,1400 [facility] Last Admin: 08/31/17 13:00 Dose: 40 mg Heparin Sodium (Porcine) (Heparin -) 5,000 unit SQ BID [facility] Last Admin: 08/31/17 09:25 Dose: 5,000 unit Azithromycin 250 mg/ Dextrose 250 mls @ 250 mls/hr IVPB DAILY@1600 [facility] Last Admin: 08/30/17 16:17 Dose: 250 mls/hr CEFTRIAXONE 1 G/50 ML PREMIX (Ceftriaxone 1 Gm-D5w Bag) 50 mls @ 100 mls/hr IVPB DAILY [facility] Last Admin: 08/31/17 09:27 Dose: 100 mls/hr Metoprolol Succinate (Toprol Xl -) 25 mg PO BID [facility] Last Admin: 08/31/17 09:26 Dose: 25 mg - Objective Vital Signs: Vital Signs - 24 hr 08/30/17 08/30/17 08/30/17 16:00 18:00 20:00 Pulse Rate 101 H 95 H 96 H Respiratory 29 H 24 25 H Rate Blood Pressure 114/58 114/66 110/65 O2 Sat by Pulse Oximetry (%) 08/30/17 08/30/17 08/31/17 20:33 22:00 00:00 Pulse Rate 93 H 94 H Respiratory 21 21 Rate Blood Pressure 121/56 111/54 O2 Sat by Pulse 95 Oximetry (%) 08/31/17 08/31/17 08/31/17 04:00 06:00 08:00 Pulse Rate 95 H 94 H 92 H Respiratory 22 21 16 Rate Blood Pressure 114/55 114/58 117/61 O2 Sat by Pulse Oximetry (%) 08/31/17 08/31/17 08/31/17 09:00 10:00 12:00 Pulse Rate 96 H 93 H Respiratory 21 17 12 Rate Blood Pressure 114/53 116/63 O2 Sat by Pulse Oximetry (%) Intake & Output 08/29/17 08/30/17 08/31/17 09/01/17 07:59 07:59 07:59 07:59 Intake Total 1175.5 850 350 Output Total 1000 1800 900 Balance 175.5 -950 -550 Weight 139 lb 5 oz 132 lb 12.8 oz 138 lb 7.205 oz Constitutional: Yes: Well Nourished, No Distress, Calm Cardiovascular: Yes: Regular Rate and Rhythm, S1, S2. No: JVD, Gallop, Murmur Respiratory: Yes: Regular, Rales (bilat). No: Accessory Muscle Use, Wheezes Extremities: No: Cold Edema: No Neurological: Yes: Alert, Oriented Psychiatric: No: Agitated Labs: CBC, BMP 08/31/17 05:05 08/31/17 05:05 Laboratory Tests 08/29/17 08/31/17 05:00 05:05 Creat Clearance w eGFR 47.09 Total Bilirubin 0.5 AST 71 H D 51 H D ALT 72 Alkaline Phosphatase 82 Albumin 2.8 L 08/31/17 05:05 Magnesium 2.3 - ....Imaging EKG: Other (tele: sinus tach with wide QRS (LBBB), brief intermitent SVT) Assessment/Plan cxr: clear lung dubon, improved from prior. cxr 08/31: minimal improvement in congestive changes. echo 07/2017 ([facility]): bline lve. lv sys fn severly reduced. severe global HK. nl rv. mild mvp. mod-sev mr. 1+ tr. echo 07/2017 ([facility]): mild lve, g1dd, lvef 29%, nl rv, sev lae, mild mr, nl rvsp stress test 07/2017: smalll-mod sized ant/anteroseptal ischemica (mild intensity ), small-mod sized base-apex inf ischemia (mild intensity). EF 23% at rest EF 24 % post stress cath 07/2017: distal disease, no pci done, left for med rx: 30-50 mrca 70-80 rpda, 70-80 av continuation. 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 EF 35% lvedp 15. EKG 08/28: sinus tach, LBBB with assctd repol abn--no signif change vs 08/25 ( or 07/23) EKG 08/29: NSR, LBBB (nonspecific pseudonormalization of TWIs, in setting of LBBB) a/p: 87 with h/o new diagnosis of cardiomyopathy last month, cad, lbbb, htn, copd, here with fever/infectious sx's and bola. acute hypoxic resp failure, acute on chronic syst chf, cardiogenic shock, lactic acidosis: -known nonisch CMP. lasix held on admit and given IVF for diarrhea/vol depletion. -became suddenly sob 08/28 evening, with marked hypoxia on ABG (done on 100% NRB oxygen) -cxr (images reviewed) showed acute pulm edema pattern. given lasix 40mg IVP x 2 successive doses given 20 min apart, with only approx 40cc UOP in bauman. then given lasix 80mg 6 hrs later. total UOP yest evening through this am = 1000cc ( net positive approx 1.5 L in past 24 hrs). -bnp up 16K from 5K earlier. -yest evening sbp dropped to 80s, lasix held -08/29: cxr with ongoing acute pulm edema picture. creat bumped slightly yest due to acute chf, stable (improved slightly today). lasix 40 iv bid -08/30: net negative 1500cc yesterday. CXR mild chf picture, no change vs yesterday. sinus tach persists. metopr resumed yest (25 bid). renal function improved. cont lasix 40 iv bid. - 08/31: approaching euvolemia. will try transitioning to po lasix tomorrow. -ecg non-ischemic x2, trop 0.12. cont trend troponins (coronary anatomy at cath all branch vessel or distal dz, i.e. low-risk). -acute chf here likely due to fluid overload from IVF and holding lasix. -resume ARB once chf resolves and creat stable (on benicar 20 at home--can change to valsartan bid for syst chf indication) -sees dr jackson for cardiology--defer ICD/CERAMIC MAKER DEMONSTRATOR discussion to outpt f/u with him once acute issues resolved cad - cath with mild non-intervenable, non-critical disease. - con't asa, statin - ekg with known lbbb. - no signs acs htn: - low bp sec to acute chf/cardiogenic shock, vs sedation paul-intubation diarrhea, fever: - persists, ? etiology--per hospitalist est time spent in data review, pt exam, and fomulating mgmt plan of potentially life-threatening illness = 35 min
[2017-08-31] MEDS: AZITHROMYCIN IVPB 250 MG in DEXTROSE 5%-WATER - 250 ML IVPB SCH (16:00)
[2017-08-31] MEDS: ATORVASTATIN CA 40 MG TABLET (FP) PO SCH (21:22)
[2017-09-01 06:10] LABS: HEMATOCRIT 30.5 % (32.4-45.2); MCH 25.1 pg (25.7-33.7); MCHC 32.7 g/dl (32.0-36.0); MEAN CELL VOLUME 76.8 fl (80-96); MEAN PLT VOLUME 9.3 fl (7.5-11.1); PLATELET COUNT 296 K/MM3 (134-434); RBC 3.97 M/mm3 (3.60-5.2); RDW 16.8 % (11.6-15.6); WHITE BLOOD COUNT 8.5 K/mm3 (4.0-10.0)
[2017-09-01] MEDS: FUROSEMIDE 40 MG/4 ML INJECTABLE VIAL IVPUSH SCH (06:18)
[2017-09-01 06:34] LABS: ANION GAP 11 (8-16); BILIRUBIN,TOTAL 0.6 mg/dL (0.2-1.0); BLOOD UREA NITROGEN 21 mg/dL (7-18); CALCIUM 9.1 mg/dL (8.5-10.1); CHLORIDE 106 mmol/L (98-107); CO2 24 mmol/L (21-32); CREATININE 1.2 mg/dL (0.55-1.02); GLUCOSE,RANDOM 81 mg/dL (74-106); MAGNESIUM 1.9 mg/dL (1.8-2.4); PHOSPHOROUS 3.1 mg/dL (2.5-4.9); POTASSIUM 3.4 mmol/L (3.5-5.1); SGOT/AST 58 U/L (15-37); SGPT/ALT 75 U/L (12-78); SODIUM 141 mmol/L (136-145)
[2017-09-01 06:35] LABS: ALK PHOS 81 U/L (45-117); TOT PROT 6.7 g/dl (6.4-8.2)
[2017-09-01] MEDS ORDERED: POTASSIUM CHLORIDE TABS 20 MEQ TABLET.ER (FP) PO ONE (08:50)
[2017-09-01] MEDS: FUROSEMIDE 40 MG TABLET (FP) PO SCH (09:52)
[2017-09-01] MEDS: METOPROLOL SUCCINATE 25 MG TAB.SR.24H (FP) PO SCH ×2 (09:52→22:48)
[2017-09-01] MEDS: ASPIRIN 81 MG CHEWABLE TABLETS PO SCH (09:52)
[2017-09-01] MEDS: CEFTRIAXONE 1 G/50 ML PREMIX 50 ML IVPB SCH (09:53)
[2017-09-01] MEDS: HEPARIN NA (PORCINE) 5,000 UNITS/ML 1ML VIAL SQ SCH ×2 (09:53→22:48)
--- NOTE | 2017-09-01 10:42 | PN ---
Physical Exam: SUBJECTIVE: Patient seen and examined. No new complaint. Still has cough. OBJECTIVE: Vital Signs Period Temp Pulse Resp BP Sys/Ortiz Pulse Ox Last 24 Hr 97.8 F-98 F 86-111 12- 101-119/51-68 100 Vital Signs Temp 97.7 F 09/01/17 16:00 Pulse 98 H 09/01/17 18:00 Resp 15 09/01/17 18:00 BP 106/58 09/01/17 18:00 Pulse Ox 98 09/01/17 11:15 Intake & Output 08/31/17 09/01/17 09/01/17 23:59 11:59 23:59 Intake Total 250 750 Output Total 300 Balance -300 250 750 Weight 58.117 kg Intake: IVPB 350 Oral 250 400 Output: Urine 300 Void 300 Other: Voiding Method Toilet Toilet # Unmeasured Voids Void 2 4 Bowel Movement No No Weight Measurement Method Built in [facility] GENERAL: The patient is awake, alert, and fully oriented, in no acute distress. EYES: Reactive pupils bilaterally, EOMI ENT: Moist mucus membranes NECK: Trachea midline, full range of motion, supple. LUNGS: Bilateral crackles HEART: Regular rate and rhythm, S1, S2 without murmur, rub or gallop. ABDOMEN: Soft, nontender, nondistended, normoactive bowel sounds, no guarding, no rebound, no hepatosplenomegaly, no masses. EXTREMITIES: 2+ pulses, warm, well-perfused, no edema. NEUROLOGICAL: Normal tone, power and reflexes. Normal speech, gait not observed. PSYCH: Normal mood, normal affect. SKIN: Warm, dry, normal turgor, no rashes or lesions noted CXR- improving congestion Laboratory Results - last 24 hr 09/01/17 09/01/17 05:55 05:55 WBC 8.5 RBC 3.97 Hgb 10.0 L Hct 30.5 L MCV 76.8 L MCH 25.1 L MCHC 32.7 RDW 16.8 H Plt Count 296 MPV 9.3 Neutrophils % No Result Required. Lymphocytes % No Result Required. Sodium 141 Potassium 3.4 L Chloride 106 Carbon Dioxide 24 Anion Gap 11 BUN 21 H D Creatinine 1.2 H Creat Clearance w eGFR 42.60 Random Glucose 81 Calcium 9.1 Phosphorus 3.1 Magnesium 1.9 Total Bilirubin 0.6 AST 58 H ALT 75 Alkaline Phosphatase 81 Total Protein 6.7 Albumin 3.0 L Active Medications Generic Name Dose Route Start Last Admin Trade Name Freq PRN Reason Stop Dose Admin Acetaminophen 650 mg 08/26/17 20:52 08/29/17 15:25 Tylenol - PO 650 mg Q6H PRN Administration FEVER OR PAIN Albuterol/Ipratropium 1 amp 08/30/17 10:04 08/30/17 11:05 Duoneb - NEB 1 amp Q6H PRN Administration SHORT OF BREATH/WHEEZING Aspirin 81 mg 08/26/17 10:00 09/01/17 09:52 Asa - PO 81 mg DAILY DUC Administration Atorvastatin Calcium 40 mg 08/25/17 22:00 08/31/17 21:22 Lipitor - PO 40 mg HS DUC Administration Furosemide 40 mg 09/01/17 10:00 09/01/17 09:52 Lasix - PO 40 mg DAILY DUC Administration Heparin Sodium (Porcine) 5,000 unit 08/25/17 22:00 09/01/17 09:53 Heparin - SQ 5,000 unit BID DUC Administration Azithromycin 250 mg/ Dextrose 250 mls @ 250 mls/hr 08/28/17 16:00 08/31/17 16 :00 IVPB 250 mls/hr DAILY@1600 DUC Administration CEFTRIAXONE 1 G/50 ML PREMIX 50 mls @ 100 mls/hr 08/27/17 19:00 09/01/17 09: 53 Ceftriaxone 1 Gm-D5w Bag IVPB 100 mls/hr DAILY DUC Administration Metoprolol Succinate 25 mg 08/30/17 10:00 09/01/17 09:52 Toprol Xl - PO 25 mg BID DUC Administration ASSESSMENT/PLAN: 87 year old female with PMHx of HTN, COPD, systolic heart failure, recent cardiac cath at [facility] 07/2017 admitted for diarrhea and fever with cough but transfered to ICU for respiratory distress following rapid response on . Cardio: Acute on chronic systolic heart failure HTN, LBBB, cardiac catheterization with cardiomyopathy -cardiac cath 07/2017 : mild, non-intervenable, non-critical disease Cont Lasix 40 ivpush Lipitor 40HS ASA Resp/ID Acute hypoxic respiratory failure 2/2 acute pulmonary edema/ PNA Extubated 08/29-Stable COPD- Stable-- Continue duonebs Completed ceftriaxone (day #6) azithromycin (day #6) and stop Duonebs PRN Renal/ lytes/fluids: Hypotension- Resolved Metoprolol- 25mg PO bid BHAVNA- Resolved Hold olmesartan Lasix 40mg daily GI/Nutrition Tolerating food Prophylaxis/ Conditioning DVT ppx- Heparin sq Physical therapy evaluation Dispo: For transfer Visit type - Emergency Visit Emergency Visit: Yes ED Registration Date: 08/25/17 Care time: The patient presented to the Emergency Department on the above date and was hospitalized for further evaluation of their emergent condition. - New Patient This patient is new to me today: No - Critical Care Critical Care patient: Yes Total Critical Care Time (in minutes): 35 Critical Care Statement: The care of this patient involved high complexity decision making to prevent further life threatening deterioration of the patient 's condition and/or to evaluate & treat vital organ system(s) failure or risk of failure.
[2017-09-01 10:56] LABS: ANISOCYTOSIS 2+; MACROCYTOSIS 0; PLATELET ESTIMATE NORMAL
--- NOTE | 2017-09-01 12:06 | PN ---
Teaching Attending Note Name of Resident: Natalie Lloyd ATTENDING PHYSICIAN STATEMENT I saw and evaluated the patient. I reviewed the resident's note and discussed the case with the resident. I agree with the resident's findings and plan as documented. SUBJECTIVE: Patient seen and examined in the ICU. Remains extubated. Awake and alert. Some dry cough. Denies chest pain. CXR: Improving / LLL atelectasis Intake & Output 08/29/17 08/30/17 08/31/17 09/01/17 23:59 23:59 23:59 23:59 Intake Total 1138.5 350 250 Output Total 2700 900 300 Balance -1561.5 -550 -300 250 Weight 139 lb 5 oz 132 lb 12.8 oz 138 lb 7.205 oz 128 lb 2 oz Last Vital Signs Temp Pulse Resp BP Pulse Ox 98 F 93 H 18 113/63 98 09/01/17 11:59 09/01/17 11:15 09/01/17 11:59 09/01/17 11:59 09/01/17 11:15 Active Medications Acetaminophen (Tylenol -) 650 mg PO Q6H PRN PRN Reason: FEVER OR PAIN Last Admin: 08/29/17 15:25 Dose: 650 mg Albuterol/Ipratropium (Duoneb -) 1 amp NEB Q6H PRN PRN Reason: SHORT OF BREATH/WHEEZING Last Admin: 08/30/17 11:05 Dose: 1 amp Aspirin (Asa -) 81 mg PO DAILY [facility] Last Admin: 09/01/17 09:52 Dose: 81 mg Atorvastatin Calcium (Lipitor -) 40 mg PO HS [facility] Last Admin: 08/31/17 21:22 Dose: 40 mg Furosemide (Lasix -) 40 mg PO DAILY [facility] Last Admin: 09/01/17 09:52 Dose: 40 mg Heparin Sodium (Porcine) (Heparin -) 5,000 unit SQ BID [facility] Last Admin: 09/01/17 09:53 Dose: 5,000 unit Azithromycin 250 mg/ Dextrose 250 mls @ 250 mls/hr IVPB DAILY@1600 [facility] Last Admin: 08/31/17 16:00 Dose: 250 mls/hr CEFTRIAXONE 1 G/50 ML PREMIX (Ceftriaxone 1 Gm-D5w Bag) 50 mls @ 100 mls/hr IVPB DAILY [facility] Last Admin: 09/01/17 09:53 Dose: 100 mls/hr Metoprolol Succinate (Toprol Xl -) 25 mg PO BID [facility] Last Admin: 09/01/17 09:52 Dose: 25 mg Gen: Awake and alert, NAD Heart: RRR Lung: scattered rhonchi, bibasilar rales Abd: soft, nontender Ext: + edema Laboratory Results - last 24 hr 09/01/17 09/01/17 05:55 05:55 WBC 8.5 RBC 3.97 Hgb 10.0 L Hct 30.5 L MCV 76.8 L MCH 25.1 L MCHC 32.7 RDW 16.8 H Plt Count 296 MPV 9.3 Total Counted 100 Neutrophils % No Result Required. Neutrophils % (Manual) 50.5 Band Neutrophils % 0.0 Lymphocytes % No Result Required. Lymphocytes % (Manual) 32.0 Monocytes % (Manual) 4 Eosinophils % (Manual) 8.2 H Basophils % (Manual) 1.0 Myelocytes % (Man) 2 Metamyelocytes 0 Hypochromia 0 Platelet Estimate Normal Polychromasia 0 Poikilocytosis 1+ Anisocytosis 2+ Microcytosis 1+ Macrocytosis 0 Sodium 141 Potassium 3.4 L Chloride 106 Carbon Dioxide 24 Anion Gap 11 BUN 21 H D Creatinine 1.2 H Creat Clearance w eGFR 42.60 Random Glucose 81 Calcium 9.1 Phosphorus 3.1 Magnesium 1.9 Total Bilirubin 0.6 AST 58 H ALT 75 Alkaline Phosphatase 81 Total Protein 6.7 Albumin 3.0 L IMP: s/p Acute Respiratory Failure Acute Pulmonary Edema Acute on Chronic Systolic Heart Failure Severe Mitral Regurgitation Pneumonia Acute Kidney Injury improving Lactic Acidosis COPD HTN PLAN: - Lasix - monitor urine output, creatinine - beta grisel, titrate for rate control - ABX - inhaled bronchodilators as needed - O2 to keep Spo2 >90% - PO as tolerated - DVT prophylaxis - Cardiac telemetry monitoring Dr Hall Critical care time spent in reviewing chart, evaluating patient and formulating plan 38 min
--- NOTE | 2017-09-01 12:21 | PN ---
Progress Note (short form) - Note Progress Note: s: no cp sob palps dizzy o: Vital Signs Period Temp Pulse Resp BP Sys/Ortiz Pulse Ox Last 24 Hr 97.8 F-98 F 86-111 13-22 101-119/51-68 98-100 nad calm jvd not elevated, neck supple rrr s1s2 no mrg ctab nl eff aao3 no le e/c/c abd nt nd pos bs no jaundice diaphoresis Current Medications Generic Name Dose Route Start Last Admin Trade Name Freq PRN Reason Stop Dose Admin Acetaminophen 650 mg 08/26/17 20:52 08/29/17 15:25 Tylenol - PO 650 mg Q6H PRN Administration FEVER OR PAIN Albuterol/Ipratropium 1 amp 08/30/17 10:04 08/30/17 11:05 Duoneb - NEB 1 amp Q6H PRN Administration SHORT OF BREATH/WHEEZING Aspirin 81 mg 08/26/17 10:00 09/01/17 09:52 Asa - PO 81 mg DAILY DUC Administration Atorvastatin Calcium 40 mg 08/25/17 22:00 08/31/17 21:22 Lipitor - PO 40 mg HS DUC Administration Furosemide 40 mg 09/01/17 10:00 09/01/17 09:52 Lasix - PO 40 mg DAILY DUC Administration Heparin Sodium (Porcine) 5,000 unit 08/25/17 22:00 09/01/17 09:53 Heparin - SQ 5,000 unit BID DUC Administration Azithromycin 250 mg/ Dextrose 250 mls @ 250 mls/hr 08/28/17 16:00 08/31/17 16 :00 IVPB 250 mls/hr DAILY@1600 DUC Administration CEFTRIAXONE 1 G/50 ML PREMIX 50 mls @ 100 mls/hr 08/27/17 19:00 09/01/17 09: 53 Ceftriaxone 1 Gm-D5w Bag IVPB 100 mls/hr DAILY DUC Administration Metoprolol Succinate 25 mg 08/30/17 10:00 09/01/17 09:52 Toprol Xl - PO 25 mg BID DUC Administration CBC, BMP 09/01/17 05:55 09/01/17 05:55 echo 07/2017 ([facility]): bline lve. lv sys fn severly reduced. severe global HK. nl rv. mild mvp. mod-sev mr. 1+ tr. echo 07/2017 ([facility]): mild lve, g1dd, lvef 29%, nl rv, sev lae, mild mr, nl rvsp echo 08/2017: sev dec lvef, nl rv, mild tr, mod-sev mr tele: sr stress test 07/2017: smalll-mod sized ant/anteroseptal ischemica (mild intensity ), small-mod sized base-apex inf ischemia (mild intensity). EF 23% at rest EF 24 % post stress cath 07/2017: distal disease, no pci done, left for med rx: 30-50 mrca 70-80 rpda, 70-80 av continuation. 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 EF 35% lvedp 15. EKG 08/28: sinus tach, LBBB with assctd repol abn--no signif change vs 08/25 ( or 07/23) EKG 08/29: NSR, LBBB (nonspecific pseudonormalization of TWIs, in setting of LBBB) a/p: 87 with h/o new diagnosis of cardiomyopathy last month, cad, lbbb, htn, copd, here with fever/infectious sx's and bola. acute hypoxic resp failure, acute on chronic syst chf, cardiogenic shock, lactic acidosis: -known nonisch CMP. lasix held on admit and given IVF for diarrhea/vol depletion. -became suddenly sob 08/28 evening, with marked hypoxia on ABG (done on 100% NRB oxygen) -cxr (images reviewed) showed acute pulm edema pattern. given lasix 40mg IVP x 2 successive doses given 20 min apart, with only approx 40cc UOP in bauman. then given lasix 80mg 6 hrs later. total UOP yest evening through this am = 1000cc ( net positive approx 1.5 L in past 24 hrs). -bnp up 16K from 5K earlier. -yest evening sbp dropped to 80s, lasix held -08/29: cxr with ongoing acute pulm edema picture. creat bumped slightly yest due to acute chf, stable (improved slightly today). lasix 40 iv bid -08/30: net negative 1500cc yesterday. CXR mild chf picture, no change vs yesterday. sinus tach persists. metopr resumed yest (25 bid). renal function improved. cont lasix 40 iv bid. - 08/31: approaching euvolemia. will try transitioning to po lasix tomorrow. -09/01: vol stable, cont po lasix -ecg non-ischemic x2, trop 0.12. cont trend troponins (coronary anatomy at cath all branch vessel or distal dz, i.e. low-risk). -acute chf here likely due to fluid overload from IVF and holding lasix. -resume ARB once chf resolves and creat stable (on benicar 20 at home--can change to valsartan bid for syst chf indication) -sees dr jackson for cardiology--defer ICD/FOREST FIRE WARDEN discussion to outpt f/u with him once acute issues resolved cad - cath with mild non-intervenable, non-critical disease. - con't asa, statin - ekg with known lbbb. - no signs acs htn: - low bp sec to acute chf/cardiogenic shock, vs sedation paul-intubation diarrhea, fever: - persists, ? etiology--per hospitalist
[2017-09-01] MEDS ORDERED: PT OWN MED DRAWER 7, Y5N ONE ×2 (15:48→15:50)
[2017-09-01] MEDS ORDERED: VANCOMYCIN 1,000 MG VIAL (RESTRICTED TO ID ONLY) IVPB ONE (15:54)
[2017-09-01] MEDS ORDERED: ACETAMINOPHEN 325 MG TABLET (FP) PO PRN (15:54)
[2017-09-01] MEDS ORDERED: METOPROLOL TARTRATE 5 MG/5 ML VIAL IVPUSH STA (15:54)
[2017-09-01] MEDS ORDERED: AZITHROMYCIN IVPB 250 MG in DEXTROSE 5%-WATER - 250 ML IVPB SCH (16:00)
[2017-09-01] MEDS ORDERED: NITROGLYCERIN 2% OINTMENT - 1GM PACKET TD ONE (16:15)
[2017-09-01] MEDS: VANCOMYCIN 1,000 MG in DEXTROSE 5%-WATER - 250 ML IVPB ONE ×2 (17:07→17:14)
--- NOTE | 2017-09-01 17:21 | PN ---
Physical Exam: SUBJECTIVE: Patient seen and examined OBJECTIVE: Vital Signs Period Temp Pulse Resp BP Sys/Ortiz Pulse Ox Last 24 Hr 97.7 F-98 F 86-97 13-23 93-119/51-68 98-100 GENERAL: The patient is awake, alert, and fully oriented, in no acute distress. EYES: PERRL, extraocular movements intact, sclera anicteric, conjunctiva clear. No ptosis. Hazing noted around bilateral irises. LUNGS: Breath sounds equal, bibasilar crackles, no accessory muscle use. HEART: Regular rate and rhythm, S1, S2 without murmur, rub or gallop. ABDOMEN: SNTND EXTREMITIES: 2+ pulses, warm, well-perfused, no edema. NEUROLOGICAL: Cranial nerves II through XII grossly intact. Normal speech, gait not observed. Laboratory Results - last 24 hr 09/01/17 09/01/17 05:55 05:55 WBC 8.5 RBC 3.97 Hgb 10.0 L Hct 30.5 L MCV 76.8 L MCH 25.1 L MCHC 32.7 RDW 16.8 H Plt Count 296 MPV 9.3 Total Counted 100 Neutrophils % No Result Required. Neutrophils % (Manual) 50.5 Band Neutrophils % 0.0 Lymphocytes % No Result Required. Lymphocytes % (Manual) 32.0 Monocytes % (Manual) 4 Eosinophils % (Manual) 8.2 H Basophils % (Manual) 1.0 Myelocytes % (Man) 2 Metamyelocytes 0 Hypochromia 0 Platelet Estimate Normal Polychromasia 0 Poikilocytosis 1+ Anisocytosis 2+ Microcytosis 1+ Macrocytosis 0 Sodium 141 Potassium 3.4 L Chloride 106 Carbon Dioxide 24 Anion Gap 11 BUN 21 H D Creatinine 1.2 H Creat Clearance w eGFR 42.60 Random Glucose 81 Calcium 9.1 Phosphorus 3.1 Magnesium 1.9 Total Bilirubin 0.6 AST 58 H ALT 75 Alkaline Phosphatase 81 Total Protein 6.7 Albumin 3.0 L Active Medications Generic Name Dose Route Start Last Admin Trade Name Freq PRN Reason Stop Dose Admin Acetaminophen 650 mg 09/01/17 15:54 Tylenol - PO Q6H PRN FEVER OR PAIN Albuterol/Ipratropium 1 amp 09/01/17 15:54 Duoneb - NEB Q6H PRN SHORT OF BREATH/WHEEZING Aspirin 81 mg 09/02/17 10:00 Asa - PO DAILY DUC Atorvastatin Calcium 40 mg 09/01/17 22:00 Lipitor - PO HS DUC Furosemide 40 mg 09/01/17 10:00 09/01/17 09:52 Lasix - PO 40 mg DAILY DUC Administration Heparin Sodium (Porcine) 5,000 unit 09/01/17 22:00 Heparin - SQ BID DUC Azithromycin 250 mg/ Dextrose 250 mls @ 250 mls/hr 09/01/17 16:00 09/01/17 16 :54 IVPB 250 mls/hr DAILY@1600 DUC Administration CEFTRIAXONE 1 G/50 ML PREMIX 50 mls @ 100 mls/hr 09/02/17 10:00 Ceftriaxone 1 Gm-D5w Bag IVPB DAILY DUC Vancomycin HCl 1,000 mg/ 250 mls @ 166.667 mls/hr 09/01/17 16:15 09/01/17 17: 14 Dextrose IVPB 09/01/17 17:44 Not Given ONCE ONE Metoprolol Succinate 25 mg 09/01/17 22:00 Toprol Xl - PO BID PENDING SALE TO [facility] ASSESSMENT/PLAN: A: 87 year old female with PMH significant for HTN, systolic heart failure, cardiac cath at [facility] 07/2017, and COPD. Admitted with complaint of fever, weakness, frequent urination, diarrhea, and reported low blood pressure, hospital course complicated by acute pulmonary edema requiring intubation, now extubated continuing diuresis. P: Acute hypoxic respiratory failure - Due to APE - Extubated 08/29 - Maintaining Spo2 on 2LNC - serial CXR Acute on chronic systolic heart failure - Continue Lasix 40mg BID - Continue Toprol xl 25mg BID - Restart Valsartan BID once euvolemic - CXR improving- congestive changes remain - echo pending Coronary artery disease - Cardiac cath 07/2017: mild, non-intervenable, non-critical disease - Continue ASA, Lipitor Hypotension - Resolved Pneumonia - Continue ceftriaxone and azithromycin (day #6) BHAVNA - Resolved - Hold ARB COPD - Stable - Continue duonebs Diarrhea - stool studies negative - O&P pending Hypokalemia - Resolved F/E/N: - Low Na diet - replete prn PPX - PT - sqh - OOB Dispo: - Transfer to floor when tele bed available Visit type - Emergency Visit Emergency Visit: Yes ED Registration Date: 12/20/17 Care time: The patient presented to the Emergency Department on the above date and was hospitalized for further evaluation of their emergent condition. - New Patient This patient is new to me today: No - Critical Care Critical Care patient: No
[2017-09-01] MEDS: ATORVASTATIN CA 40 MG TABLET (FP) PO SCH (22:48)
[2017-09-02 08:38] LABS: ANION GAP 11 (8-16); BLOOD UREA NITROGEN 22 mg/dL (7-18); CALCIUM 8.8 mg/dL (8.5-10.1); CHLORIDE 106 mmol/L (98-107); CO2 23 mmol/L (21-32); CREATININE 1.2 mg/dL (0.55-1.02); GLUCOSE,RANDOM 82 mg/dL (74-106); POTASSIUM 3.6 mmol/L (3.5-5.1); SGOT/AST 58 U/L (15-37); SGPT/ALT 81 U/L (12-78); SODIUM 140 mmol/L (136-145)
[2017-09-02 08:41] LABS: ALK PHOS 77 U/L (45-117); BILIRUBIN,TOTAL 0.6 mg/dL (0.2-1.0); TOT PROT 6.7 g/dl (6.4-8.2)
[2017-09-02] MEDS: FUROSEMIDE 40 MG TABLET (FP) PO SCH (09:52)
[2017-09-02] MEDS: POTASSIUM CHLORIDE ORAL LIQUID 20 MEQ/15 ML PO SCH (09:53)
[2017-09-02] MEDS: HEPARIN NA (PORCINE) 5,000 UNITS/ML 1ML VIAL SQ SCH ×2 (09:53→23:03)
[2017-09-02] MEDS: ASPIRIN 81 MG CHEWABLE TABLETS PO SCH (09:53)
[2017-09-02] MEDS: METOPROLOL SUCCINATE 25 MG TAB.SR.24H (FP) PO SCH ×2 (09:53→23:03)
[2017-09-02] MEDS ORDERED: CEFTRIAXONE 1 G/50 ML PREMIX 50 ML IVPB SCH (10:00)
[2017-09-02] MEDS: ALBUTEROL SO4 2.5/IPRATROPIUM 0.5 INH SOL 3 ML VIAL.NEB. NEB PRN ×2 (11:00→21:55)
--- NOTE | 2017-09-02 11:38 | PN ---
Progress Note (short form) - Note Progress Note: s: no cp sob palps dizzy o: Vital Signs Period Temp Pulse Resp BP Sys/Ortiz Pulse Ox Last 24 Hr 97.7 F-98.8 F 90-103 15-23 93-123/47-67 96 nad calm jvd not elevated, neck supple rrr s1s2 no mrg ctab nl eff aao3 no le e/c/c abd nt nd pos bs no jaundice diaphoresis Current Medications Generic Name Dose Route Start Last Admin Trade Name Freq PRN Reason Stop Dose Admin Acetaminophen 650 mg 09/01/17 15:54 Tylenol - PO Q6H PRN FEVER OR PAIN Albuterol/Ipratropium 1 amp 09/01/17 15:54 09/02/17 11:00 Duoneb - NEB 1 amp Q6H PRN Administration SHORT OF BREATH/WHEEZING Aspirin 81 mg 09/02/17 10:00 09/02/17 09:53 Asa - PO 81 mg DAILY DUC Administration Atorvastatin Calcium 40 mg 09/01/17 22:00 09/01/17 22:48 Lipitor - PO 40 mg HS DUC Administration Furosemide 40 mg 09/01/17 10:00 09/02/17 09:52 Lasix - PO 40 mg DAILY DUC Administration Heparin Sodium (Porcine) 5,000 unit 09/01/17 22:00 09/02/17 09:53 Heparin - SQ 5,000 unit BID DUC Administration Metoprolol Succinate 25 mg 09/01/17 22:00 09/02/17 09:53 Toprol Xl - PO 25 mg BID DUC Administration Potassium Chloride 20 meq 09/02/17 10:00 09/02/17 09:53 Potassium Chloride Oral Liquid PO 20 meq DAILY DUC Administration CBC, BMP 09/01/17 05:55 09/02/17 07:00 echo 07/2017 ([facility]): bline lve. lv sys fn severly reduced. severe global HK. nl rv. mild mvp. mod-sev mr. 1+ tr. echo 07/2017 ([facility]): mild lve, g1dd, lvef 29%, nl rv, sev lae, mild mr, nl rvsp echo 08/2017: sev dec lvef, nl rv, mild tr, mod-sev mr tele: sr stress test 07/2017: smalll-mod sized ant/anteroseptal ischemica (mild intensity ), small-mod sized base-apex inf ischemia (mild intensity). EF 23% at rest EF 24 % post stress cath 07/2017: distal disease, no pci done, left for med rx: 30-50 mrca 70-80 rpda, 70-80 av continuation. 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 EF 35% lvedp 15. EKG 08/28: sinus tach, LBBB with assctd repol abn--no signif change vs 08/25 ( or 07/23) EKG 08/29: NSR, LBBB (nonspecific pseudonormalization of TWIs, in setting of LBBB) a/p: 87 with h/o new diagnosis of cardiomyopathy last month, cad, lbbb, htn, copd, here with fever/infectious sx's and bola. acute hypoxic resp failure, acute on chronic syst chf, cardiogenic shock, lactic acidosis: -known nonisch CMP. lasix held on admit and given IVF for diarrhea/vol depletion. -became suddenly sob 08/28 evening, with marked hypoxia on ABG (done on 100% NRB oxygen) -cxr (images reviewed) showed acute pulm edema pattern. given lasix 40mg IVP x 2 successive doses given 20 min apart, with only approx 40cc UOP in bauman. then given lasix 80mg 6 hrs later. total UOP yest evening through this am = 1000cc ( net positive approx 1.5 L in past 24 hrs). -bnp up 16K from 5K earlier. -yest evening sbp dropped to 80s, lasix held -08/29: cxr with ongoing acute pulm edema picture. creat bumped slightly yest due to acute chf, stable (improved slightly today). lasix 40 iv bid -08/30: net negative 1500cc yesterday. CXR mild chf picture, no change vs yesterday. sinus tach persists. metopr resumed yest (25 bid). renal function improved. cont lasix 40 iv bid. - 08/31: approaching euvolemia. will try transitioning to po lasix tomorrow. -09/01-28: vol stable, cont po lasix -ecg non-ischemic x2, trop 0.12. cont trend troponins (coronary anatomy at cath all branch vessel or distal dz, i.e. low-risk). -acute chf here likely due to fluid overload from IVF and holding lasix. -will resume arb valsartan 40 bid for syst chf indication -sees dr jackson for cardiology--defer ICD/PRINCIPAL ACCOUNTS CLERK discussion to outpt f/u with him once acute issues resolved cad - cath with mild non-intervenable, non-critical disease. - con't asa, statin - ekg with known lbbb. - no signs acs htn: - stable cardiac law remains stable
--- NOTE | 2017-09-02 11:46 | PN ---
Physical Exam: SUBJECTIVE: Patient seen and examined at the bedside. she reports she feels well, tolerating room air. OBJECTIVE: Vital Signs Period Temp Pulse Resp BP Sys/Ortiz Pulse Ox Last 24 Hr 97.7 F-98.8 F 90-103 15-23 93-123/47-67 96 GENERAL: The patient is awake, alert, and fully oriented, in no acute distress. HEAD: Normal with no signs of trauma. EYES: PERRL, extraocular movements intact, sclera anicteric, conjunctiva clear. No ptosis. ENT: Ears normal, nares patent, oropharynx clear without exudates NECK: Trachea midline, full range of motion, supple. LUNGS: crackles auscultated on left base, right lung clear/diminished HEART: Regular rate and rhythm, SR on circuit judge ABDOMEN: Soft, nontender, nondistended, normoactive bowel sounds, no guarding EXTREMITIES: no edema. NEUROLOGICAL: Normal speech, gait not observed. PSYCH: Normal mood, normal affect. SKIN: Warm, dry, normal turgor, no rashes or lesions noted Laboratory Results - last 24 hr 09/02/17 07:00 Sodium 140 Potassium 3.6 Chloride 106 Carbon Dioxide 23 Anion Gap 11 BUN 22 H Creatinine 1.2 H Creat Clearance w eGFR 42.60 Random Glucose 82 Calcium 8.8 Total Bilirubin 0.6 AST 58 H ALT 81 H Alkaline Phosphatase 77 Total Protein 6.7 Albumin 3.0 L Active Medications Generic Name Dose Route Start Last Admin Trade Name Freq PRN Reason Stop Dose Admin Acetaminophen 650 mg 09/01/17 15:54 Tylenol - PO Q6H PRN FEVER OR PAIN Albuterol/Ipratropium 1 amp 09/01/17 15:54 09/02/17 11:00 Duoneb - NEB 1 amp Q6H PRN Administration SHORT OF BREATH/WHEEZING Aspirin 81 mg 09/02/17 10:00 09/02/17 09:53 Asa - PO 81 mg DAILY DUC Administration Atorvastatin Calcium 40 mg 09/01/17 22:00 09/01/17 22:48 Lipitor - PO 40 mg HS DUC Administration Furosemide 40 mg 09/01/17 10:00 09/02/17 09:52 Lasix - PO 40 mg DAILY DUC Administration Heparin Sodium (Porcine) 5,000 unit 09/01/17 22:00 09/02/17 09:53 Heparin - SQ 5,000 unit BID DUC Administration Metoprolol Succinate 25 mg 09/01/17 22:00 09/02/17 09:53 Toprol Xl - PO 25 mg BID [facility] Administration Potassium Chloride 20 meq 09/02/17 10:00 09/02/17 09:53 Potassium Chloride Oral Liquid PO 20 meq DAILY DUC Administration Valsartan 40 mg 09/02/17 22:00 Diovan - PO BID DUC ASSESSMENT/PLAN: Patient is an 87 year old female with a significant past medical history on hypertension, systolic heart failure, recent cardiac cath. at [facility] on July 2017. She was admitted on 08/25/2017 with symptoms of diarrhea, fever , cough, general malaise and was found to have BHAVNA. Hospital course complicated when patient had to be transferred to ICU for a respiratory distress. She was intubated on 08/28 and extubated on 08/29/2017. Pulmonary Acute hypoxic respiratory failure, resolved s/p intubation with extubation on 08/29 Tolerating room air, prn oxygen Pneumonia Received 6 days of IV Ceftriaxone and azithromycin, stopped by pulm. Monitor off antibiotics Rule out aspiration pneumonia Swallow eval at bedside, now on mechanical soft diet COPD, Stable duonebs as needed Cardiology: Acute on chronic systolic heart failure On Lasix 40mg PO daily, Toprol xl 25mg BID, Diovan 40mg BID Echo Coronary artery disease Continue ASA, Lipitor Hypotension, now resolved Renal BHAVNA, improving Monitor labs GI: Diarrhea, resolved stool studies negative F.E.N. Fluids: tolerating PO Electrolytes: monitor Nutrition: low sodium diet Prophylaxis: DVT: heparin GI: deferred Disposition: full code.
--- NOTE | 2017-09-02 12:44 | CONSULT ---
Admitting History and Physical - Primary Care Physician PCP: Mookie Waters - Admission History of Present Illness: Per EMR: Patient is an 87 year old female with a significant past medical history on hypertension, systolic heart failure, recent cardiac cath. at [place] on July 2017. She was admitted on 08/25/2017 with symptoms of diarrhea, fever , cough, general malaise and was found to have BHAVNA. Hospital course complicated when patient had to be transferred to ICU for a respiratory distress. She was intubated on 08/28 and extubated on 08/29/2017. History Source: Patient Limitations to Obtaining History: No Limitations - Past Medical History ARMATURE WINDER REPAIR: No: Alzheimer's, CVA, Dementia, Migraine, Multiple Sclerosis, Peripheral Neuropathy, Parkinson's, Seizure, Syncope, TIA, Vertigo, Other Cardiovascular: Yes: CAD, CHF, HTN Pulmonary: Yes: COPD Gastrointestinal: No: Ascites, Cancer, Constipation, Crohn's Disease, Diverticulitis, Diverticulosis, Esophageal Varices, Gastritis, GERD, GI Bleed, Hemorrhoids, Hiatal Hernia, Inflamatory Bowel Disease, Irritable Bowel Disease, Pancreatitis, Peptic Ulcer Disease, Ulcerative Colitis, Other Hepatobiliary: No: Cirrhosis, Cholelithiasis, Cholecystitis, Choledocholithiasis , Hepatitis A, Hepatitis B, Hepatitis C, Other Renal/: No: Renal Failure, Renal Inusuff, BPH, Cancer, Hematuria, Hemodialysis , Neurogenic Bladder, Renal Calculi, UTI, Other ...: No Heme/Onc: No: Anemia, B12 Deficiency, Bleeding Disorder, Cancer, Current Chemotherapy, Current Radiation Therapy, Hemochromatosis, Hypercoaguable State, Myeloproliferative Synd, Sickle Cell Disease, Sickle Cell Trait, Thrombocytopenia, Other Infectious Disease: No: AIDS, C-Diff, Herpes Zoster, HIV, MRSA, STD's, Tuberculosis, VREF, Other Psych: No: Addictions, Anxiety, Bipolar, Depression, Panic, Psychosis, Schizophrenia, Other Rheumatology: No: Fibromyalgia, Gout, Lupus, Rheumatoid Arthritis, Sarcoidosis, Vasculitis, Other ENT: No: Allergic Rhinitis, Sinusitis, Other Endocrine: No: Charlotte's Disease, Елена's Disease, Diabetes Insipidus, Diabetes Mellitus, Hyperparathyroidism, Hyperthyroidism, Hypothyroidism, Osteopenia, SIADH, Other Dermatology: No: Basal Cell, Cellulitis, Eczema, Melanoma, Psoriasis, Squamous Cell, Other - Smoking History Smoking history: Never smoked Have you smoked in the past 12 months: No Aproximately how many cigarettes per day: 0 - Alcohol/Substance Use Hx Alcohol Use: Yes (1 glass of wine a week) History of Substance Use: reports: None - Social History ADL: Independent Occupation: retired [employer] History of Recent Travel: No History - Admission Reason For Visit: ACUTE KIDNEY INJURY - Diagnostics X-ray: Report Reviewed - General Mental Status: Alert and Oriented, Awake and Alert, Able to Follow Commands Attention: Intact Ability to Follow Directions: Excellent Head/Neck Control: WFL - Hearing Hearing: Normal Speech Evaluation - Communication Primary Language: GRENADIAN Communication: Yes: Within Normal Limits Oral Expression Ability: Yes: No Impairment - Speech Production Able to Make Needs Known: Yes: WNL Intelligibility: Yes: WNL - Speech Characteristics Voice Loudness: Normal Voice Pitch: Yes: Normal Voice Phonatory-based Quality: Yes: Normal Speech Pattern: Normal Speech Clarity: < 100% Nasal Resonance: Normal Articulation: Yes: Precise - Language/Verbal Expression Able to Respond to Simple Queries: Yes: WNL Able to Communicate Wants and Needs: Yes: WNL Functional Communication Status: Yes: WNL - Memory/Perception keno terminal operator Memory: Yes: WNL Short Term Memory: Yes: WNL - Swallow Evaluation/Bedside Assessment Current Nutritional Intake: Regular, Thin Liquids Oral Secretions: Yes: WFL Dentition: Yes: Missing Teeth (only a few teeth. Pt does not wear her ill fitting dentures) Facial Symmetry at Rest: Facial Droop Left Facial Symmetry on Retraction: Symmetrical Facial Movement: Controlled Sensation: Normal Against Resistance Opening: Normal Against Resistance Closing: Normal Pucker Lips: Normal Smile: Normal Lingual Movement: Normal, Symmetric Lingual Speed of Movement: Normal Lingual Movement Strgth Against Opposition: Normal Lingual Movement Characteristics: Normal Velopharyngeal Movement: Normal Laryngeal Elevation: WFL Laryngeal Movement: Able to Palpate Rate of Intake: WFL Chewing: Impaired (most of her regular diet was untouched.) Oral Prep Time: WFL A-P Transit: WFL Pocketing: None Coughing/Throat Clear: No Change in Voice: No Recommendations - Speech Evaluation, Impression/Plan Impression: Swallowing overtly WNL. Very limited functional dentition. Poor PO intake. Appetite vs mechanical? - Dysphagia Impressions/Plan *Silent aspiration: cannot be R/O at bedside - Recommendations Diet Consistency: Mechanical Soft (very soft, easy to chew, with chopped meat, extra gravy.) Medication Administration: Whole with water Liquids: Thin Liquids
--- NOTE | 2017-09-02 14:30 | PN ---
Progress Note, Physician History of Present Illness: pulmonary alert,no c/o sob,-cp,-cough - Current Medication List Current Medications: Active Medications Acetaminophen (Tylenol -) 650 mg PO Q6H PRN PRN Reason: FEVER OR PAIN Albuterol/Ipratropium (Duoneb -) 1 amp NEB Q6H PRN PRN Reason: SHORT OF BREATH/WHEEZING Last Admin: 09/02/17 11:00 Dose: 1 amp Aspirin (Asa -) 81 mg PO DAILY [facility] Last Admin: 09/02/17 09:53 Dose: 81 mg Atorvastatin Calcium (Lipitor -) 40 mg PO HS [facility] Last Admin: 09/01/17 22:48 Dose: 40 mg Furosemide (Lasix -) 40 mg PO DAILY [facility] Last Admin: 09/02/17 09:52 Dose: 40 mg Heparin Sodium (Porcine) (Heparin -) 5,000 unit SQ BID [facility] Last Admin: 09/02/17 09:53 Dose: 5,000 unit Metoprolol Succinate (Toprol Xl -) 25 mg PO BID [facility] Last Admin: 09/02/17 09:53 Dose: 25 mg Potassium Chloride (Potassium Chloride Oral Liquid) 20 meq PO DAILY [facility] Last Admin: 09/02/17 09:53 Dose: 20 meq Valsartan (Diovan -) 40 mg PO BID [facility] - Objective Vital Signs: Vital Signs Temperature 97.8 F 09/02/17 10:00 Pulse Rate 94 H 09/02/17 10:00 Respiratory Rate 18 09/02/17 10:00 Blood Pressure 101/50 09/02/17 10:00 O2 Sat by Pulse Oximetry (%) 94 L 09/02/17 09:00 Constitutional: Yes: Well Nourished, Calm Eyes: Yes: WNL HENT: Yes: WNL Neck: Yes: WNL Cardiovascular: Yes: Regular Rate and Rhythm, S1, S2 Respiratory: Yes: Rales (few scattered crackles) Gastrointestinal: Yes: Normal Bowel Sounds, Soft Extremities: Yes: WNL Edema: No Labs: CBC, BMP 09/02/17 07:00 INR, PTT INR 1.02 (0.82-1.09) 08/25/17 11:27 Problem List - Problems (1) Acute kidney injury Code(s): N17.9 - ACUTE KIDNEY FAILURE, UNSPECIFIED (2) Respiratory failure requiring intubation Code(s): J96.90 - RESPIRATORY FAILURE, UNSP, UNSP W HYPOXIA OR HYPERCAPNIA (3) CHF (congestive heart failure) Code(s): I50.9 - HEART FAILURE, UNSPECIFIED Qualifiers: Congestive heart failure type: unspecified congestive heart failure type Congestive heart failure chronicity: unspecified congestive heart failure chronicity Qualified Code(s): I50.9 - Heart failure, unspecified (4) Dyspnea due to congestive heart failure Code(s): I50.9 - HEART FAILURE, UNSPECIFIED Assessment/Plan A/P s/p Acute Respiratory Failure Acute Pulmonary Edema Acute on Chronic Systolic Heart Failure Severe Mitral Regurgitation Pneumonia Acute Kidney Injury improving Lactic Acidosis COPD HTN - lasix - monitor urine output, creatinine - beta grisel - ARB - inhaled bronchodilators as needed - O2 to keep Spo2 >90% - PO as tolerated - DVT prophylaxis DR LOPES
[2017-09-02] MEDS: ATORVASTATIN CA 40 MG TABLET (FP) PO SCH (23:03)
[2017-09-02] MEDS: VALSARTAN 40 MG TABLET (FP) PO SCH (23:04)
[2017-09-03 09:03] LABS: BASO % 0.7 % (0-2.0); EOS % 4.5 % (0-4.5); HEMATOCRIT 31.6 % (32.4-45.2); LYMPH % 30.6 % (8-40); MCH 24.2 pg (25.7-33.7); MCHC 31.7 g/dl (32.0-36.0); MEAN CELL VOLUME 76.3 fl (80-96); MEAN PLT VOLUME 8.7 fl (7.5-11.1); MONO % 8.8 % (3.8-10.2); NEUT % 55.4 % (42.8-82.8); PLATELET COUNT 293 K/MM3 (134-434); RBC 4.14 M/mm3 (3.60-5.2); RDW 16.7 % (11.6-15.6); WHITE BLOOD COUNT 6.8 K/mm3 (4.0-10.0)
[2017-09-03 09:36] LABS: ALBUMIN 3.2 g/dl (3.4-5.0); BLOOD UREA NITROGEN 19 mg/dL (7-18); CALCIUM 9.1 mg/dL (8.5-10.1); CHLORIDE 110 mmol/L (98-107); POTASSIUM 4.1 mmol/L (3.5-5.1); SODIUM 141 mmol/L (136-145)
[2017-09-03 09:42] LABS: ALK PHOS 81 U/L (45-117); ANION GAP 7 (8-16); BILIRUBIN,TOTAL 0.7 mg/dL (0.2-1.0); CO2 24 mmol/L (21-32); CREATININE 1.1 mg/dL (0.55-1.02); GLUCOSE,RANDOM 94 mg/dL (74-106); SGOT/AST 48 U/L (15-37); SGPT/ALT 78 U/L (12-78)
[2017-09-03] MEDS: METOPROLOL SUCCINATE 25 MG TAB.SR.24H (FP) PO SCH ×2 (10:28→23:10)
[2017-09-03] MEDS: POTASSIUM CHLORIDE ORAL LIQUID 20 MEQ/15 ML PO SCH (10:28)
[2017-09-03] MEDS: FUROSEMIDE 40 MG TABLET (FP) PO SCH (10:28)
[2017-09-03] MEDS: HEPARIN NA (PORCINE) 5,000 UNITS/ML 1ML VIAL SQ SCH ×2 (10:28→23:10)
[2017-09-03] MEDS: VALSARTAN 40 MG TABLET (FP) PO SCH ×2 (10:28→11:28)
[2017-09-03] MEDS: ASPIRIN 81 MG CHEWABLE TABLETS PO SCH (10:28)
--- NOTE | 2017-09-03 12:27 | PN ---
Progress Note (short form) - Note Progress Note: s: no cp sob palps dizzy o: Vital Signs Period Temp Pulse Resp BP Sys/Ortiz Pulse Ox Last 24 Hr 97.9 F-98.7 F 90-108 18-18 93-112/46-60 96-98 nad calm jvd not elevated, neck supple rrr s1s2 no mrg ctab nl eff aao3 no le e/c/c abd nt nd pos bs no jaundice diaphoresis Current Medications Generic Name Dose Route Start Last Admin Trade Name Freq PRN Reason Stop Dose Admin Acetaminophen 650 mg 09/01/17 15:54 Tylenol - PO Q6H PRN FEVER OR PAIN Albuterol/Ipratropium 1 amp 09/01/17 15:54 09/02/17 21:55 Duoneb - NEB 1 amp Q6H PRN Administration SHORT OF BREATH/WHEEZING Aspirin 81 mg 09/02/17 10:00 09/03/17 10:28 Asa - PO 81 mg DAILY DUC Administration Atorvastatin Calcium 40 mg 09/01/17 22:00 09/02/17 23:03 Lipitor - PO 40 mg HS DUC Administration Furosemide 40 mg 09/01/17 10:00 09/03/17 10:28 Lasix - PO 40 mg DAILY DUC Administration Heparin Sodium (Porcine) 5,000 unit 09/01/17 22:00 09/03/17 10:28 Heparin - SQ 5,000 unit BID DUC Administration Lisinopril 2.5 mg 09/04/17 10:00 Prinivil PO DAILY DUC Metoprolol Succinate 25 mg 09/01/17 22:00 09/03/17 10:28 Toprol Xl - PO 25 mg BID DUC Administration Potassium Chloride 20 meq 09/02/17 10:00 09/03/17 10:28 Potassium Chloride Oral Liquid PO 20 meq DAILY DUC Administration CBC, BMP 09/03/17 08:45 09/03/17 08:45 echo 07/2017 ([facility]): bline lve. lv sys fn severly reduced. severe global HK. nl rv. mild mvp. mod-sev mr. 1+ tr. echo 07/2017 ([facility]): mild lve, g1dd, lvef 29%, nl rv, sev lae, mild mr, nl rvsp echo 08/2017: sev dec lvef, nl rv, mild tr, mod-sev mr tele: sr stress test 07/2017: smalll-mod sized ant/anteroseptal ischemica (mild intensity ), small-mod sized base-apex inf ischemia (mild intensity). EF 23% at rest EF 24 % post stress cath 07/2017: distal disease, no pci done, left for med rx: 30-50 mrca 70-80 rpda, 70-80 av continuation. 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 EF 35% lvedp 15. EKG 08/28: sinus tach, LBBB with assctd repol abn--no signif change vs 08/25 ( or 07/23) EKG 08/29: NSR, LBBB (nonspecific pseudonormalization of TWIs, in setting of LBBB) a/p: 87 with h/o new diagnosis of cardiomyopathy last month, cad, lbbb, htn, copd, here with fever/infectious sx's and bola. acute hypoxic resp failure, acute on chronic syst chf, cardiogenic shock, lactic acidosis: -known nonisch CMP. lasix held on admit and given IVF for diarrhea/vol depletion. -became suddenly sob 08/28 evening, with marked hypoxia on ABG (done on 100% NRB oxygen) -cxr (images reviewed) showed acute pulm edema pattern. given lasix 40mg IVP x 2 successive doses given 20 min apart, with only approx 40cc UOP in ba[place]. then given lasix 80mg 6 hrs later. total UOP yest evening through this am = 1000cc ( net positive approx 1.5 L in past 24 hrs). -bnp up 16K from 5K earlier. -yest evening sbp dropped to 80s, lasix held -08/29: cxr with ongoing acute pulm edema picture. creat bumped slightly yest due to acute chf, stable (improved slightly today). lasix 40 iv bid -08/30: net negative 1500cc yesterday. CXR mild chf picture, no change vs yesterday. sinus tach persists. metopr resumed yest (25 bid). renal function improved. cont lasix 40 iv bid. - 08/31: approaching euvolemia. will try transitioning to po lasix tomorrow. -09/01-: vol stable, cont po lasix -acute chf here likely due to fluid overload from IVF and holding lasix. -bp low so will dc valsartan 40 bid and change to lisinopril 2.5 qd, cont bb as well for chf regimen -sees dr jackson for cardiology--defer ICD/HIM ASSISTANT discussion to outpt f/u with him once acute issues resolved cad - cath with mild non-intervenable, non-critical disease. - con't asa, statin - ekg with known lbbb. - no signs acs htn: - stable cardiac law remains stable
--- NOTE | 2017-09-03 13:13 | PN ---
Progress Note, Physician History of Present Illness: pulmonary alert,nad,-cp,-sob,-cough - Current Medication List Current Medications: Active Medications Acetaminophen (Tylenol -) 650 mg PO Q6H PRN PRN Reason: FEVER OR PAIN Albuterol/Ipratropium (Duoneb -) 1 amp NEB Q6H PRN PRN Reason: SHORT OF BREATH/WHEEZING Last Admin: 09/02/17 21:55 Dose: 1 amp Aspirin (Asa -) 81 mg PO DAILY [facility] Last Admin: 09/03/17 10:28 Dose: 81 mg Atorvastatin Calcium (Lipitor -) 40 mg PO HS [facility] Last Admin: 09/02/17 23:03 Dose: 40 mg Furosemide (Lasix -) 40 mg PO DAILY [facility] Last Admin: 09/03/17 10:28 Dose: 40 mg Heparin Sodium (Porcine) (Heparin -) 5,000 unit SQ BID [facility] Last Admin: 09/03/17 10:28 Dose: 5,000 unit Lisinopril (Prinivil) 2.5 mg PO DAILY [facility] Metoprolol Succinate (Toprol Xl -) 25 mg PO BID [facility] Last Admin: 09/03/17 10:28 Dose: 25 mg Potassium Chloride (Potassium Chloride Oral Liquid) 20 meq PO DAILY [facility] Last Admin: 09/03/17 10:28 Dose: 20 meq - Objective Vital Signs: Vital Signs Temperature 98.7 F 09/03/17 06:00 Pulse Rate 108 H 09/03/17 09:30 Respiratory Rate 18 09/03/17 06:00 Blood Pressure 93/60 09/03/17 06:00 O2 Sat by Pulse Oximetry (%) 96 09/03/17 09:30 Constitutional: Yes: Well Nourished, Calm Eyes: Yes: WNL HENT: Yes: Nasal Congestion Neck: Yes: WNL Cardiovascular: Yes: Regular Rate and Rhythm, S1, S2 Respiratory: Yes: CTA Bilaterally Gastrointestinal: Yes: Normal Bowel Sounds, Soft Extremities: Yes: WNL Edema: No Labs: CBC, BMP 09/03/17 08:45 09/03/17 08:45 INR, PTT INR 1.02 (0.82-1.09) 08/25/17 11:27 Problem List - Problems (1) Acute kidney injury Code(s): N17.9 - ACUTE KIDNEY FAILURE, UNSPECIFIED (2) Respiratory failure requiring intubation Code(s): J96.90 - RESPIRATORY FAILURE, UNSP, UNSP W HYPOXIA OR HYPERCAPNIA (3) CHF (congestive heart failure) Code(s): I50.9 - HEART FAILURE, UNSPECIFIED Qualifiers: Congestive heart failure type: unspecified congestive heart failure type Congestive heart failure chronicity: unspecified congestive heart failure chronicity Qualified Code(s): I50.9 - Heart failure, unspecified (4) Dyspnea due to congestive heart failure Code(s): I50.9 - HEART FAILURE, UNSPECIFIED Assessment/Plan A/P s/p Acute Respiratory Failure Acute Pulmonary Edema improved Acute on Chronic Systolic Heart Failure Severe Mitral Regurgitation Pneumonia Acute Kidney Injury improving Lactic Acidosis COPD HTN - lasix po - monitor urine output, creatinine - beta grisel - ARB - inhaled bronchodilators as needed - O2 to keep Spo2 >90% - PO as tolerated - DVT prophylaxis - chest x-ray today DR LOPES
--- NOTE | 2017-09-03 15:57 | PN ---
Physical Exam: SUBJECTIVE: Patient seen and examined at the bedside. She ambulated with PT without difficulty, respiratory pre and post stable. OBJECTIVE: loose stools this morning x 2, cdiff sent/pending Vital Signs Period Temp Pulse Resp BP Sys/Ortiz Pulse Ox Last 24 Hr 97.9 F-98.7 F 90-108 18-18 93-101/46-60 96-98 GENERAL: The patient is awake, alert, and fully oriented, in no acute distress. HEAD: Normal with no signs of trauma. EYES: PERRL, extraocular movements intact, sclera anicteric, conjunctiva clear. No ptosis. ENT: Ears normal, nares patent, oropharynx clear without exudates NECK: Trachea midline, full range of motion, supple. LUNGS: mild crackles auscultated on left base, right lung clear/diminished, tolerating room air HEART: Regular rate and rhythm, SR on strike on machine operator ABDOMEN: Soft, nontender, nondistended, normoactive bowel sounds, no guarding EXTREMITIES: no edema. NEUROLOGICAL: Normal speech, gait not observed. PSYCH: Normal mood, normal affect. SKIN: Warm, dry, normal turgor, no rashes or lesions noted Laboratory Results - last 24 hr 09/03/17 09/03/17 08:45 08:45 WBC 6.8 RBC 4.14 Hgb 10.0 L Hct 31.6 L MCV 76.3 L MCH 24.2 L MCHC 31.7 L RDW 16.7 H Plt Count 293 MPV 8.7 Neutrophils % 55.4 Lymphocytes % 30.6 Monocytes % 8.8 Eosinophils % 4.5 Basophils % 0.7 Sodium 141 Potassium 4.1 Chloride 110 H Carbon Dioxide 24 Anion Gap 7 L BUN 19 H Creatinine 1.1 H Creat Clearance w eGFR 47.09 Random Glucose 94 Calcium 9.1 Total Bilirubin 0.7 AST 48 H ALT 78 Alkaline Phosphatase 81 Total Protein 7.0 Albumin 3.2 L Active Medications Generic Name Dose Route Start Last Admin Trade Name Freq PRN Reason Stop Dose Admin Acetaminophen 650 mg 09/01/17 15:54 Tylenol - PO Q6H PRN FEVER OR PAIN Albuterol/Ipratropium 1 amp 09/01/17 15:54 09/02/17 21:55 Duoneb - NEB 1 amp Q6H PRN Administration SHORT OF BREATH/WHEEZING Aspirin 81 mg 09/02/17 10:00 09/03/17 10:28 Asa - PO 81 mg DAILY DUC Administration Atorvastatin Calcium 40 mg 09/01/17 22:00 09/02/17 23:03 Lipitor - PO 40 mg HS DUC Administration Furosemide 40 mg 09/01/17 10:00 09/03/17 10:28 Lasix - PO 40 mg DAILY DUC Administration Heparin Sodium (Porcine) 5,000 unit 09/01/17 22:00 09/03/17 10:28 Heparin - SQ 5,000 unit BID DUC Administration Lisinopril 2.5 mg 09/04/17 10:00 Prinivil PO DAILY DUC Metoprolol Succinate 25 mg 09/01/17 22:00 09/03/17 10:28 Toprol Xl - PO 25 mg BID DUC Administration Potassium Chloride 20 meq 09/02/17 10:00 09/03/17 10:28 Potassium Chloride Oral Liquid PO 20 meq DAILY DUC Administration ASSESSMENT/PLAN: Patient is an 87 year old female with a significant past medical history on hypertension, systolic heart failure, recent cardiac cath. at [facility] on July 2017. She was admitted on 08/25/2017 with symptoms of diarrhea, fever , cough, general malaise and was found to have BHAVNA. Hospital course complicated when patient had to be transferred to ICU for a respiratory distress. Patient was intubated on 08/28 and extubated on 08/29/2017. She is now tolerating room air, and her respiratory status is stable on room air. Pulmonary Acute hypoxic respiratory failure, resolved s/p intubation with extubation on 08/29 Tolerating room air, prn oxygen Pneumonia Received 6 days of IV Ceftriaxone and azithromycin, stopped by pulm. Monitor off antibiotics Chest xray pending +adenovirus on nasalpharn swab performed on 08/29, discussed w/time cycle operator Rule out aspiration pneumonia Swallow eval at bedside, now on mechanical soft diet as per speech/swallow COPD, Stable duonebs as needed Cardiology: Acute on chronic systolic heart failure On Lasix 40mg PO daily, Toprol xl 25mg BID, Diovan 40mg BID Echo Coronary artery disease Continue ASA, Lipitor Hypertension, chronic Now with hypotensive episodes Valsartan switched to Lisinopril 2.5mg daily Renal BHAVNA, improving Monitor labs GI: Diarrhea, had 2 loose stools today, cdiff pending stool studies negative F.E.N. Fluids: tolerating PO Electrolytes: monitor Nutrition: low sodium diet Prophylaxis: DVT: heparin GI: deferred Disposition: full code. Visit type - Emergency Visit Emergency Visit: Yes ED Registration Date: 08/25/17 Care time: The patient presented to the Emergency Department on the above date and was hospitalized for further evaluation of their emergent condition. - New Patient This patient is new to me today: No - Critical Care Critical Care patient: No - Discharge Referral Referred to [facility] No
[2017-09-03] MEDS: ATORVASTATIN CA 40 MG TABLET (FP) PO SCH (23:10)
[2017-09-04 07:33] LABS: BASO % 0.9 % (0-2.0); EOS % 4.9 % (0-4.5); HEMATOCRIT 31.5 % (32.4-45.2); HEMOGLOBIN 9.9 GM/dL (10.7-15.3); LYMPH % 37.8 % (8-40); MCH 24.6 pg (25.7-33.7); MCHC 31.6 g/dl (32.0-36.0); MEAN CELL VOLUME 77.7 fl (80-96); MEAN PLT VOLUME 9.4 fl (7.5-11.1); MONO % 10.7 % (3.8-10.2); NEUT % 45.7 % (42.8-82.8); PLATELET COUNT 290 K/MM3 (134-434); RBC 4.05 M/mm3 (3.60-5.2); RDW 17.2 % (11.6-15.6)
[2017-09-04 07:52] LABS: ALBUMIN 3.2 g/dl (3.4-5.0); ANION GAP 11 (8-16); BLOOD UREA NITROGEN 17 mg/dL (7-18); CALCIUM 9.5 mg/dL (8.5-10.1); CHLORIDE 108 mmol/L (98-107); CO2 23 mmol/L (21-32); CREATININE 1.2 mg/dL (0.55-1.02); GLUCOSE,RANDOM 83 mg/dL (74-106); POTASSIUM 4.4 mmol/L (3.5-5.1); SGOT/AST 48 U/L (15-37); SGPT/ALT 72 U/L (12-78); SODIUM 142 mmol/L (136-145)
[2017-09-04 07:55] LABS: ALK PHOS 79 U/L (45-117); BILIRUBIN,TOTAL 0.7 mg/dL (0.2-1.0); TOT PROT 6.9 g/dl (6.4-8.2)
[2017-09-04 09:03] VITALS: BP 115/58; PULSE 92; TEMP 98.2
[2017-09-04] MEDS ORDERED: PT OWN MED DRAWER 7, Y5N ONE (09:29)
[2017-09-04] MEDS: METOPROLOL SUCCINATE 25 MG TAB.SR.24H (FP) PO SCH (09:39)
[2017-09-04] MEDS: POTASSIUM CHLORIDE ORAL LIQUID 20 MEQ/15 ML PO SCH (09:39)
[2017-09-04] MEDS: HEPARIN NA (PORCINE) 5,000 UNITS/ML 1ML VIAL SQ SCH (09:39)
[2017-09-04] MEDS: FUROSEMIDE 40 MG TABLET (FP) PO SCH (09:40)
[2017-09-04] MEDS: ASPIRIN 81 MG CHEWABLE TABLETS PO SCH (09:40)
[2017-09-04] MEDS ORDERED: LISINOPRIL 5 MG TABLET (FP) PO SCH (10:00)
--- NOTE | 2017-09-04 10:30 | DS ---
Physical Exam: SUBJECTIVE: Patient seen and examined. States she feels well, eager to go home. Denies any shortness of breath or chest pain. OBJECTIVE: Vital Signs Period Temp Pulse Resp BP Sys/Ortiz Pulse Ox Last 24 Hr 98.2 F-98.7 F 86-92 18-18 98-116/50-58 96 PHYSICAL EXAM GENERAL: The patient is awake, alert, and fully oriented, in no acute distress. HEAD: Normal with no signs of trauma. EYES: PERRL, extraocular movements intact, sclera anicteric, conjunctiva clear. No ptosis. ENT: Ears normal, nares patent, oropharynx clear without exudates NECK: Trachea midline, full range of motion, supple. LUNGS: tolerating room air, no crackles auscultated, bilateral lungs clear to auscultation, diminished at the bases HEART: Regular rate and rhythm, SR on rn cardiac rehab ABDOMEN: Soft, nontender, nondistended, normoactive bowel sounds, no guarding EXTREMITIES: no edema. NEUROLOGICAL: Normal speech, gait not observed. PSYCH: Normal mood, normal affect. SKIN: Warm, dry, normal turgor, no rashes or lesions noted LABS Laboratory Results - last 24 hr 09/04/17 09/04/17 06:30 06:30 WBC 7.0 RBC 4.05 Hgb 9.9 L Hct 31.5 L MCV 77.7 L MCH 24.6 L MCHC 31.6 L RDW 17.2 H Plt Count 290 MPV 9.4 Neutrophils % 45.7 Lymphocytes % 37.8 D Monocytes % 10.7 H Eosinophils % 4.9 H Basophils % 0.9 Sodium 142 Potassium 4.4 Chloride 108 H Carbon Dioxide 23 Anion Gap 11 BUN 17 Creatinine 1.2 H Creat Clearance w eGFR 42.60 Random Glucose 83 Calcium 9.5 Total Bilirubin 0.7 AST 48 H ALT 72 Alkaline Phosphatase 79 Total Protein 6.9 Albumin 3.2 L HOSPITAL COURSE: Date of Admission:08/25/17 Date of Discharge: 09/04/17 ASSESSMENT/PLAN: Patient is an 87 year old female with a significant past medical history on hypertension, systolic heart failure, recent cardiac cath. at [place] on July 2017. She was admitted on 08/25/2017 with symptoms of diarrhea, fever , cough, general malaise and was found to have BHAVNA. Hospital course complicated when patient had to be transferred to ICU for a respiratory distress. Patient was intubated on 08/28 and extubated on 08/29/2017. She is now tolerating room air, and her respiratory status is stable on room air. Respiratory pre and post completed and pt does not require home oxygen. Pulmonary Acute hypoxic respiratory failure, resolved s/p intubation with extubation on 08/29 Tolerating room air Respiratory pre and post shows no need for home oxygen Pulmonary outpatient follow up with Dr. Diehl Pneumonia Received 6 days of IV Ceftriaxone and azithromycin, stopped by pulm. WBC stable, afebrile, does not require home antibiotics +adenovirus on nasalpharn swab performed on 08/29, findings discussed w/ title assistant COPD, Stable Tolerating room air duonebs as needed Pulmonary follow up outpatient Cardiology: Acute on chronic systolic heart failure On Lasix 40mg PO daily, Toprol xl 25mg BID, Lisinopril 2.5mg daily Coronary artery disease On last admission on 07/2017, pt was sent to [facility] for cardiac cath with medical management of obstructive CAD Continue ASA, Lipitor 40mg daily Hypertension, controlled Valsartan switched to Lisinopril 2.5mg daily, Metoprolol 25mg BID Cardiology follow up outpatient Renal BHAVNA, improving Monitor labs GI: Diarrhea, cdiff negative stool studies negative Disposition: full code. Discharge home with close cardiology and pulmonary follow up. Minutes to complete discharge: 60 Discharge Summary Reason For Visit: ACUTE KIDNEY INJURY Current Active Problems Acute kidney injury (Acute) Respiratory failure requiring intubation (Acute) Condition: Stable - Instructions Diet, Activity, Other Instructions: Mrs Willis: You will be discharged today with outpatient follow up with and Dr. Boyd ( Japanese Professor). Please see with 1 week after discharge. Please also see Dr. Diehl (pulmonary) within 1-2 weeks after discharge. New Medications: Lisinopril 2.5mg - take this medication once daily (for blood pressure control) Metoprolol 25mg - take this medication twice daily (8am and 8pm) for blood pressure control - THIS MED REPLACES OUR HOME METOPROLOL 50MG DAILY DOSE Potassium 20mg tablets - take this medication once per day to keep your potassium levels normal Lasix 40mg daily - this is your home diuretic, please take once per day as you were doing at home (refill sent to your pharmacy) Lipitor 40mg daily - home medication/continue (refill sent to your home pharmacy ) Aspirin 81mg, take daily - over the counter During your hospitalization you were treated for pneumonia and you have completed the full antibiotic course. Please follow with Dr. Diehl as an outpatient for continued monitoring. I am available for you if you have any questions. You can call me between 7am and 7pm today and tomorrow. All your medications have been called into your home pharmacy. [facility] Aileen Link Palm, PANTOGRAPH SETTER [phone] Referrals: Steven Diehl MD [Staff Physician] - 2 Weeks Christopher Boyd MD [Staff Physician] - 1 Week Romy Newman MD [Primary Care Provider] - 1 Week Disposition: HOME - Home Medications Comprehensive Discharge Medication List: Ambulatory Orders Albuterol Sulfate Inhaler - [Ventolin HFA Inhaler -] 2 inh PO Q6H 07/18/17 Albuterol 2.5/Ipratropium 0.5 [Duoneb -] 1 amp NEB Q4H PRN amp 07/21/17 Aspirin [ASA -] 81 mg PO DAILY tab.chew 07/21/17 Atorvastatin Ca [Lipitor] 40 mg PO HS #30 tablet 07/21/17 Furosemide [Lasix -] 40 mg PO DAILY tablet 07/21/17 Folic Acid 1 mg PO DAILY 08/25/17 Furosemide [Lasix -] 40 mg PO DAILY #0 tablet 09/04/17 Lisinopril [Prinivil] 2.5 mg PO DAILY #30 tablet 09/04/17 Metoprolol Succinate [Toprol XL -] 25 mg PO BID #60 tab.sr.24h 09/04/17 Potassium Chloride [Potassium Chloride Oral Liquid] 20 meq PO DAILY #30 tab This patient is new to me today: No Emergency Visit: Yes ED Registration Date: 08/25/17 Care time: The patient presented to the Emergency Department on the above date and was hospitalized for further evaluation of their emergent condition. Critical Care patient: No - Discharge Referral Referred to [facility] No
--- NOTE | 2017-09-04 11:31 | PN ---
Progress Note (short form) - Note Progress Note: Overall appears better. No CP or SOB. No acute events overnight. Intake & Output 09/01/17 09/02/17 09/03/17 09/04/17 23:59 23:59 23:59 23:59 Intake Total 1200 200 400 210 Balance 1200 200 400 210 Weight 128 lb 2 oz 129 lb 8 oz Last Vital Signs Temp Pulse Resp BP Pulse Ox 98.2 F 92 H 18 115/58 97 09/04/17 09:02 09/04/17 09:02 09/04/17 09:02 09/04/17 09:02 09/04/17 09:00 Active Medications Acetaminophen (Tylenol -) 650 mg PO Q6H PRN PRN Reason: FEVER OR PAIN Albuterol/Ipratropium (Duoneb -) 1 amp NEB Q6H PRN PRN Reason: SHORT OF BREATH/WHEEZING Last Admin: 09/02/17 21:55 Dose: 1 amp Aspirin (Asa -) 81 mg PO DAILY [facility] Last Admin: 09/04/17 09:40 Dose: 81 mg Atorvastatin Calcium (Lipitor -) 40 mg PO HS [facility] Last Admin: 09/03/17 23:10 Dose: 40 mg Furosemide (Lasix -) 40 mg PO DAILY [facility] Last Admin: 09/04/17 09:40 Dose: 40 mg Heparin Sodium (Porcine) (Heparin -) 5,000 unit SQ BID [facility] Last Admin: 09/04/17 09:39 Dose: 5,000 unit Lisinopril (Prinivil) 2.5 mg PO DAILY [facility] Last Admin: 09/04/17 09:40 Dose: 2.5 mg Metoprolol Succinate (Toprol Xl -) 25 mg PO BID [facility] Last Admin: 09/04/17 09:39 Dose: 25 mg Potassium Chloride (Potassium Chloride Oral Liquid) 20 meq PO DAILY [facility] Last Admin: 09/04/17 09:39 Dose: 20 meq Constitutional: Yes: NAD Eyes: Yes: WNL HENT: Yes: Nasal Congestion Neck: Yes: WNL Cardiovascular: Yes: Regular Rate and Rhythm, S1, S2 Respiratory: Yes: few rhonchi Gastrointestinal: Yes: Normal Bowel Sounds, Soft Extremities: Yes: WNL Edema: No Labs: Laboratory Results - last 24 hr 09/04/17 09/04/17 06:30 06:30 WBC 7.0 RBC 4.05 Hgb 9.9 L Hct 31.5 L MCV 77.7 L MCH 24.6 L MCHC 31.6 L RDW 17.2 H Plt Count 290 MPV 9.4 Neutrophils % 45.7 Lymphocytes % 37.8 D Monocytes % 10.7 H Eosinophils % 4.9 H Basophils % 0.9 Sodium 142 Potassium 4.4 Chloride 108 H Carbon Dioxide 23 Anion Gap 11 BUN 17 Creatinine 1.2 H Creat Clearance w eGFR 42.60 Random Glucose 83 Calcium 9.5 Total Bilirubin 0.7 AST 48 H ALT 72 Alkaline Phosphatase 79 Total Protein 6.9 Albumin 3.2 L Problem List - Problems (1) Acute kidney injury Code(s): N17.9 - ACUTE KIDNEY FAILURE, UNSPECIFIED (2) Respiratory failure requiring intubation Code(s): J96.90 - RESPIRATORY FAILURE, UNSP, UNSP W HYPOXIA OR HYPERCAPNIA (3) CHF (congestive heart failure) Code(s): I50.9 - HEART FAILURE, UNSPECIFIED Qualifiers: Congestive heart failure type: unspecified congestive heart failure type Congestive heart failure chronicity: unspecified congestive heart failure chronicity Qualified Code(s): I50.9 - Heart failure, unspecified (4) Dyspnea due to congestive heart failure Code(s): I50.9 - HEART FAILURE, UNSPECIFIED Assessment/Plan S/P Acute Respiratory Failure Acute Pulmonary Edema improved Acute on Chronic Systolic Heart Failure Severe Mitral Regurgitation Pneumonia Acute Kidney Injury improving Lactic Acidosis COPD HTN - Lasix - BD TX PRN - D/C planning Dr Hlal
== END 2017-09-04 13:02 | disposition home health service (06) | DRG 682 ==
LOC: JER 10:48 → JERBED 13:05 → J5S 08-26 12:00 → JICU 08-28 19:52 → J4S 09-01 20:15
PROVIDERS: ADMIT Internal Medicine; ATTEND Nurse Practitioner Family
PROC: 5A1935Z Respiratory Ventilation, Less than 24 Consecutive Hours (ICD-10-PCS; principal; 2017-08-28)
PROC: 0BH17EZ Insertion of Endotracheal Airway into Trachea, Via Natural or Artificial Opening (ICD-10-PCS; 2017-08-28)
DX: N17.9 Acute kidney failure, unspecified (principal); I50.23 Acute on chronic systolic (congestive) heart failure; J18.9 Pneumonia, unspecified organism; J96.01 Acute respiratory failure with hypoxia; R57.0 Cardiogenic shock; I13.0 Hypertensive heart and chronic kidney disease with heart failure and stage 1 through stage 4 chronic kidney disease, or unspecified chronic kidney disease; E87.2 Acidosis; I42.9 Cardiomyopathy, unspecified; N18.9 Chronic kidney disease, unspecified; I34.0 Nonrheumatic mitral (valve) insufficiency; J44.9 Chronic obstructive pulmonary disease, unspecified; I25.10 Atherosclerotic heart disease of native coronary artery without angina pectoris; R19.7 Diarrhea, unspecified; E87.6 Hypokalemia
CPT/HCPCS: 31500; 36415; 36600; 71010-TC; 71020-TC; 74176-TC; 80048; 80053; 80076; 81003; 81015; 82436; 82550; 82553; 82803; 83605; 83690; 83735; 83880; 84100; 84133; 84300; 84484; 84540; 85025; 85027; 85610; 85730; 87040; 87045; 87046; 87070; 87086; 87205; 87324; 87449; 87633; 87804; 87899; 93005; 93010; 93306-TC; 94002; 94010; 94640; 94761; 97116-GP; 97161-GP; 99285-25; J1644; Q9967

== ENCOUNTER 2018-11-21 06:10 | Emergency (ER) | payer OTHER ==
--- NOTE | 2018-11-21 06:26 | PDOC ---
History of Present Illness - General Stated Complaint: FEVER Time Seen by Provider: 11/21/18 06:16 - History of Present Illness Initial Comments: Jaida Willis is an 88yo woman with a PMH of HTN, COPD, systolic heart failure who presents with fever to 101, nasal congestion, and mild cough for 4 days and now sweating that started overnight. She states that the congestion has been the most bothersome, and she has only been coughing a little bit. Her concern is that she could have pneumonia as she required hospitalization and intubation in 2017. Ms Willis denies any associated symptoms including increased SOB, chest pain, nausea/vomiting, lightheadedness, or known sick contacts. She has had a limited appetite but has been trying to drink a lot of fluids. She had both a flu and pneumonia shot this year. Past History - Past Medical History Allergies/Adverse Reactions: Allergies Allergy/AdvReac Type Severity Reaction Status Date / Time No Known Allergies Allergy Verified 08/25/17 10:56 Home Medications: Ambulatory Orders Albuterol Sulfate Inhaler - [Ventolin HFA Inhaler -] 2 inh PO Q6H 07/18/17 Albuterol 2.5/Ipratropium 0.5 [Duoneb -] 1 amp NEB Q4H PRN amp 07/21/17 Aspirin [ASA -] 81 mg PO DAILY tab.chew 07/21/17 Folic Acid 1 mg PO DAILY 08/25/17 Atorvastatin Ca [Lipitor] 40 mg PO HS #30 tablet 09/04/17 Furosemide [Lasix -] 40 mg PO DAILY #30 tablet 09/04/17 Lisinopril [Prinivil] 2.5 mg PO DAILY #30 tablet 09/04/17 Metoprolol Succinate [Toprol XL -] 25 mg PO BID #60 tab.sr.24h 09/04/17 Potassium Chloride [Potassium Chloride Oral Liquid] 20 meq PO DAILY #30 tab COPD: No HTN: Yes Hypercholesterolemia: Yes - Immunization History Immunization Up to Date: Yes - Suicide/Smoking/Psychosocial Hx Smoking Status: No Smoking History: Never smoked Have you smoked in the past 12 months: No Number of Cigarettes Smoked Daily: 0 Hx Alcohol Use: Yes (1 glass of wine a week) Drug/Substance Use Hx: No Substance Use Type: None Review of Systems - Review of Systems Comments:: General: +fevers, +sweating, no chills, no weight or appetite change, no malaise HEENT: No changes in vision, no changes in hearing, + congestion, no sore throat CV: No chest pain, no palpitations, no LE edema Pulm: No SOB, + cough, no wheezing GI: No nausea or vomiting, no change in bowel habits, no melena : No frequency, no urgency, no dysuria Musc: No back pain, no joint swelling, no recent injury Skin: No rash, no lesions, no erythema Endo: No excessive thirst, no heat/cold intolerance Heme: No unusual bruising or bleeding, no swollen glands Neuro: No syncope, no numbness/tingling, no focal weakness Vasc: No claudication Psych: No recent change in mood, no SI or HI *Physical Exam - Physical Exam Comments: General: Comfortable, no acute distress, appears younger than stated age HEENT: PERRL, EOMI, MMM, voice normal, normal neck ROM Cards: RRR, no murmur appreciated Pulm: Comfortable on room air, clear to auscultation bilaterally, no crackles or wheezing Abd: Soft, nontender, nondistended Ext: Atraumatic. No LE edema. ROM intact. Vasc: Extremities WWP. Skin: Normal color, no rashes or lesions Neuro: A&Ox3, CN grossly intact, normal speech, motor/sensory grossly intact and symmetric Psych: Mood appropriate to situation Medical Decision Making - Medical Decision Making 11/21/18 06:25 Jaida Willis is an 88yo woman with a PMH HTN, COPD, systolic heart failure s/p pacemaker who presents with 4 days of nasal congestion, mild cough, and fever to 101 at home. She started sweating overnight, which she has never experienced , and presented for evaluation. She is concerned that she could have pneumonia as she was previously hospitalized and required intubation in 2017. - Currently no fever. Benign exam, lungs clear b/l, no cough in ED - Given comorbidities and h/o cough, fever, congestion will test for influenza - CXR ordered due to pt concerns - Mildly tachycardic, will reassess 11/21/18 06:46 - CXR completed. No focal consolidation, effusion, or other acute abnormality. 11/21/18 07:05 - Influenza pending. - HR still around 100; pt has not yet taken her morning metoprolol. 11/21/18 07:15 - Flu negative. Most likely viral URI - Advised regarding home care. Will d/c home Discussed with Dr Marino. Chloe Del Cid PGY1 *DC/Admit/Observation/Transfer Diagnosis at time of Disposition: Viral URI with cough - Referrals Referrals: [facility] [place] [facility] at [place] [Provider Group] - Patient Instructions Printed Discharge Instructions: DI for Viral Upper Respiratory Infection -- Adult Additional Instructions: Discharge Instructions: You were seen in the ER for fever, cough, and congestion. You had a test for influenza which was negative. You had a chest xray, and no pneumonia or other problem was seen. Home Care: - Drink plenty of fluids - Use acetaminophen (Tylenol) 650mg every 6-8 hours as needed for pain or fever - Use a humidifier for your chest congestion - Try saline nasal spray for nasal congestion Follow Up: - You have been referred to the [facility] Internal Medicine clinic to establish care with a primary doctor. Make an appointment to follow up within the next 1- 2 weeks. - Seek immediate medical care if you have worsening symptoms, difficulty breathing, chest pain, persistent high fever over 102F or any medical emergency. - Post Discharge Activity
[2018-11-21 06:34] VITALS: BP 155/84; PULSE 105; TEMP 97.3; BMI 25.0
--- NOTE | 2018-11-21 06:54 | PDOC ---
Attending Attestation - Resident Resident Name: Chloe Del Cid - ED Attending Attestation I have performed the following: I have examined & evaluated the patient, The case was reviewed & discussed with the resident, I agree w/resident's findings & plan, Exceptions are as noted
--- NOTE | 2018-11-21 07:08 | PDOC ---
*Physical Exam - Vital Signs Last Vital Signs Temp Pulse Resp BP Pulse Ox 97.3 F L 105 H 18 155/84 98 11/21/18 06:27 11/21/18 06:27 11/21/18 06:27 11/21/18 06:27 11/21/18 06:27 Medical Decision Making - Medical Decision Making 11/21/18 07:06 Received sign out from resident Dr. Del Cid. In short, pt is a 88 y/ o female presenting with cold/flu like symptoms. Has a h/o of severe pneumonia requiring hospitalization and intubation. Pt was concerned for similar today. CXR unremarkable for consolidation per ED wet read. Will follow up on pending rapid influenza. *DC/Admit/Observation/Transfer Diagnosis at time of Disposition: Viral URI with cough - Referrals Referrals: [facility] [place] [facility] at [place] [Provider Group] - Patient Instructions - Post Discharge Activity
== END 2018-11-21 07:26 | disposition home or self-care (01) ==
LOC: JER 06:10
DX: J06.9 Acute upper respiratory infection, unspecified (principal); B97.89 Other viral agents as the cause of diseases classified elsewhere; I11.0 Hypertensive heart disease with heart failure; I50.20 Unspecified systolic (congestive) heart failure; J44.9 Chronic obstructive pulmonary disease, unspecified
CPT/HCPCS: 71046-TC-FY; 87804; 99282-25